=== PATIENT | female | born 1960 | race Caucasian/White ===

== ENCOUNTER 2022-03-03 17:53 | Emergency (ER) | payer OTHER, SELFPAY ==
[2022-03-03 18:01] VITALS: BP 126/69; PULSE 88; RESP 18; TEMP 36.6; O2SAT 97; BMI 24.0
== END 2022-03-03 22:32 | disposition left against medical advice (07) ==
PROVIDERS: Emergency Provider Emergency Medicine; PCP Nurse Practitioner Family
DX: S61.215A Laceration without foreign body of left ring finger without damage to nail, initial encounter (principal); X58.XXXA Exposure to other specified factors, initial encounter; Y93.9 Activity, unspecified; Y92.9 Unspecified place or not applicable; Y99.9 Unspecified external cause status
CPT/HCPCS: 99281

== ENCOUNTER 2022-04-13 16:58 | Emergency (ER) | payer OTHER, SELFPAY ==
--- NOTE | ~2022-04-13 | XR_ITS ---
EXAMINATION: XR CHEST CLINICAL INFORMATION: Chest pain and cough COMPARISON: Chest x-ray 05/27/2013, right shoulder radiographs 11/23/2015 TECHNIQUE: 2 views of the chest were obtained. FINDINGS: The lungs are clear. No airspace consolidation, pleural effusion, or pneumothorax. The cardiomediastinal silhouette is within normal limits. No acute osseous injury. Multilevel degenerative disc disease in the thoracic spine. Chronic right proximal humeral shaft fracture deformity again noted. XR/XR chest 2V IMPRESSION: No acute pulmonary process.
--- NOTE | 2022-04-13 17:01 | ECG_ITS ---
Test Reason : chest pain Blood Pressure : / mmHG Vent. Rate : 061 BPM Atrial Rate : 061 BPM P-R Int : 148 ms QRS Dur : 080 ms QT Int : 430 ms P-R-T Axes : 057 027 068 degrees QTc Int : 432 ms Normal sinus rhythm Normal ECG No previous ECGs available Referred By: Generic ED Physician Electronically Signed By:JENISE CABA MD
[2022-04-13 18:44] VITALS: BP 144/74; PULSE 69; RESP 16; TEMP 36.7; O2SAT 94; BMI 23.1
[2022-04-13 19:04] LABS: MANUAL DIFF FLAG NO
[2022-04-13 19:12] LABS: Basophils Absolute Auto 0.1 X10*3/uL (0.0-0.2); Basophils Percent Auto 0.6 % (0-2); Eosinophils Absolute Auto 0.2 X10*3/uL (0.0-0.4); Eosinophils Percent Auto 2.2 % (0-4); Hematocrit 35.2 % (37.0-47.0); Hemoglobin 11.7 g/dl (12.0-16.0); Imm Gran Abs Auto 0.04 X10*3/uL (0.00-0.03); Imm Gran Pct Auto 0.4 % (0.0-0.4); Lymphocytes Absolute Auto 3.9 X10*3/uL (1.2-4.9); Lymphocytes Percent Auto 35.5 % (20-40); Mean Corpuscular HGB Conc 33.2 g/dl (31.0-35.0); Mean Corpuscular Hemoglobin 32.9 pg (27.0-33.0); Mean Corpuscular Volume 98.9 fL (80.0-98.0); Mean Platelet Volume 9.3 fL (9.4-12.3); Monocytes Absolute Auto 0.8 X10*3/uL (0.1-1.2); Monocytes Percent Auto 7.2 % (2-11); Neutrophils Absolute Auto 5.9 x10*3/uL (2.0-8.3); Neutrophils Percent Auto 54.1 % (45-73); Platelet Count 363 X10*3/uL (160-400); Red Blood Count 3.56 X10*6/uL (4.20-5.50); Red Cell Distribution Width 12.6 % (11.0-16.0); White Blood Count 10.9 X10*3/uL (4.8-10.8)
[2022-04-13 19:17] LABS: COVID-19 Test Positive (Negative)
[2022-04-13 19:30] LABS: Alanine Aminotransferase 11 U/L (0-31); Albumin Level 4.1 g/dL (3.5-5.0); Alkaline Phosphatase 62 U/L (39-117); Anion Gap 14 (12-20); Aspartate Amino Transferase 19 U/L (5-31); Bilirubin Total 0.3 mg/dL (0.0-1.0); Blood Urea Nitrogen 13 mg/dL (9-16); Calcium 8.6 mg/dL (8.4-10.2); Carbon Dioxide 25 mmol/L (22-29); Chloride 103 mmol/L (96-108); Creatinine Clr Calc Pharmacy 82.3; Estimated Glomerular Filt Rate > 60; Glucose Random 75 mg/dL (60-115); Potassium 3.7 mmol/L (3.3-5.1); Sodium 138 mmol/L (135-145); Total Protein 6.5 g/dL (6.5-8.0)
[2022-04-13 19:35] LABS: Troponin-I High Sensitivity < 3.5 ng/L (<3.5-17.0)
[2022-04-13 21:32] VITALS: BP 166/91; PULSE 82; RESP 16; TEMP 36.1; O2SAT 98
--- NOTE | 2022-04-13 21:34 | ED_ITS ---
HPI - Chest Pain General Chief Complaint: Chest Pain Stated Complaint: chest pain Time Seen by Provider: 04/13/22 21:03 Source: patient Mode of arrival: ambulatory Limitations: no limitations History of Present Illness HPI narrative: 62-year-old female with history of hypertension, hyperlipidemia, thyroid nodules, smoking history presents with reports of left-sided chest discomfort since yesterday at 15:00. Patient tells me she was moving a patient and after moving the patient she sat down and felt some pain over her left side of her chest. Pain is worsened with arm movement, palpation and deep breathing. Pain is constant and is not worsened with exertion. Patient reports chronic cough. No shortness of breath, fevers, chills, leg swelling or leg pain. Patient tested positive for COVID 1 month ago. Related Data Previous Rx's Medication Instructions Recorded cyclobenzaprine 10 mg tablet 10 mg PO TID PRN muscle spasm #14 04/13/22 tabs Allergies Allergy/AdvReac Type Severity Reaction Status Date / Time No Known Allergies Allergy Verified 04/13/22 18:43 [No Known Allergies*] Wellbutrin Allergy Unknown insomnia Uncoded 01/03/18 00:00 Review of Systems Review of Systems: Yes all other systems are reviewed and are negative Constitutional: Constitutional: Reports no additional constitutional complaints, Denies body ache(s), Denies chills, Denies fever(s), Denies headache(s) and Denies weakness Eyes: Eyes: Reports no additional eye complaints and Denies change in vision ENT: Reports system reviewed and no additional complaints, except as documented, Denies dizziness, Denies headache(s), Denies nasal congestion, Denies nasal discharge and Denies neck pain Cardiovascular: Cardiovascular: Reports no additional cardiovascular complaints, Reports chest pain, Denies leg edema and Denies dyspnea Respiratory: Respiratory: Reports no additional respiratory complaints, Reports cough (Chronic) and Denies dyspnea Gastrointestinal: Gastrointestinal: Reports no additional gastrointestinal complaints, Denies abdominal pain, Denies diarrhea, Denies nausea and Denies vomiting Genitourinary: Genitourinary: Reports no additional female genitourinary complaints and Denies urinary incontinence Musculoskeletal: Musculoskeletal: Reports no additional musculoskeletal complaints, Denies back pain, Denies arthralgias, Denies joint swelling, Denies neck pain, Denies numbness and Denies tingling Integumentary/Breasts: Skin/Breast: Reports system reviewed and no additional complaints, except as docu and Denies rash Neurologic: Reports system reviewed and no additional complaints, except as documented, Denies Abnormal speech present, Denies dizziness, Denies headache(s), Denies numbness, Denies tingling and Denies weakness PMFSH Past Medical History Attestation statement: The following information was validated with the patient. Source: old records reviewed and nursing notes reviewed Social History Social History Advance Directives: No Physical Exam Vital Signs: Vital Signs: Last Vital Signs Temp 97.0 F 04/13/22 21:32 Pulse 82 04/13/22 21:32 Resp 16 04/13/22 21:32 BP 166/91 H 04/13/22 21:32 Pulse Ox 98 04/13/22 21:32 O2 Del Method 04/13/22 21:32 BMI result Body Mass Index 23.1 Const: General: cooperative, healthy appearing, comfortable and no acute distress Orientation/consciousness: patient oriented x3 Limitations: no limitations HEENT: Head: Yes normal to inspection Ears: hearing grossly normal bilaterally General nose exam: Normal external nose present Face and sinus: Yes normal facial exam Mouth: Normal oral and palatal mucosa present Throat: Yes posterior oropharynx normal Eyes: General: appearance normal, both eyes and all related structures Pupils: Equal, round and reactive pupils present Neck: Neck: Yes normal visual inspection Chest: Other: Tenderness over the left lateral chest which is worsened with palpation and movement of the left arm Chest palpation & inspection: normal inspection of the chest Resp: Effort & Inspection: normal respiratory effort Auscultation: clear to auscultation bilaterally Cardio: Rate: regular rate Rhythm: regular rhythm Peripheral pulses: Peripheral pulses 2+ throughout GI: Inspection: Yes normal to inspection Palpation (GI): Soft to palpation and nontender Auscultation: normal bowel sounds Back/Spine/Pelvis: Thoracic/Lumbar Spine: thoracic and lumbar spine normal to inspection Skin: General skin exam: no rashes or lesions noted Neuro: General: patient oriented x3, no focal motor deficits and normal sensa tion to monofilament Cranial nerves: Yes Equal, round and reactive pupils present Cognition (Neuro): normal cognition Speech: No Abnormal speech present Gait exam (Neuro): Normal gait present Motor exam (neuro): 02/03 motor strength present throughout Extrem: General: Yes normal to inspection, Yes no pedal edema and Yes no calf tenderness Course Course Course Narrative: Covid positive. Likely from infection one month ago and not re-infection. CXR, EKG, labs show no acute finding. Pain is MS on exam. Will recommend NSAID at home, prescribe low dose muscle relaxant. Reviewed worrisome signs/symptoms with patient and when to seek additional care. Comfortable with plan for discharge. MDM - Chest Pain MDM Narrative Medical decision making narrative: 62-year-old female here with left-sided chest pain which began after moving a patient yesterday. Pain is reproducible and worsened with deep breathing. No other associated symptoms. Tested + for COVID one month ago. WIll check EKG, CXR, labs Differential Diagnosis Differential diagnosis: Chest wall strain, acs (less likely with normal EKG/negative troponin and symptoms since yesterday), pe (less likely with negative d dimer, no clinical findings concerning for dvt, no hypoxia or tachypnea) Medical Records Data Attestation: I reviewed the patient's medical records. Lab Data Attestation: I reviewed the patient's lab results. Result diagrams: 04/13/22 18:47 04/13/22 18:47 Labs: Lab Results 04/13/22 04/13/22 04/13/22 Range/Units 18:47 18:47 18:47 WBC 10.9 H (4.8-10.8) X10*3/uL RBC 3.56 L (4.20-5.50) X10*6/uL Hgb 11.7 L (12.0-16.0) g/dl Hct 35.2 L (37.0-47.0) % MCV 98.9 H (80.0-98.0) fL MCH 32.9 (27.0-33.0) pg MCHC 33.2 (31.0-35.0) g/dl RDW 12.6 (11.0-16.0) % Plt Count 363 (160-400) X10*3/uL MPV 9.3 L (9.4-12.3) fL Immature Gran % (Auto) 0.4 (0.0-0.4) % Neut % (Auto) 54.1 (45-73) % Lymph % (Auto) 35.5 (20-40) % Christian % (Auto) 7.2 (2-11) % Eos % (Auto) 2.2 (0-4) % Baso % (Auto) 0.6 (0-2) % Lymph # (Auto) 3.9 (1.2-4.9) X10*3/uL Christian # (Auto) 0.8 (0.1-1.2) X10*3/uL Eos # (Auto) 0.2 (0.0-0.4) X10*3/uL Baso # (Auto) 0.1 (0.0-0.2) X10*3/uL Abs Immat Gran (auto) 0.04 H (0.00-0.03) X10*3/uL Absolute Neuts (auto) 5.9 (2.0-8.3) x10*3/uL Absolute Nucleated RBC 0.000 (0.0-0.012) X10*3/uL Nucleated RBC % (auto) 0.0 (0.0-0.2) /100WBC PT (10.0-13.1) SEC INR (0.9-1.1) D-Dimer High Sensitivty NG/ML Sodium 138 (135-145) mmol/L Potassium 3.7 (3.3-5.1) mmol/L Chloride 103 (96-108) mmol/L Carbon Dioxide 25 (22-29) mmol/L Anion Gap 14 (12-20) BUN 13 (9-16) mg/dL Creatinine 0.68 (0.5-1.4) mg/dL Estim Creat Clear Calc 82.3 Estimated GFR > 60 Random Glucose 75 (60-115) mg/dL Calcium 8.6 (8.4-10.2) mg/dL Total Bilirubin 0.3 (0.0-1.0) mg/dL AST 19 (5-31) U/L ALT 11 (0-31) U/L Alkaline Phosphatase 62 (39-117) U/L Troponin I High Sens < 3.5 (<3.5-17.0) ng/L Total Protein 6.5 (6.5-8.0) g/dL Albumin 4.1 (3.5-5.0) g/dL COVID-19 ([facility]) (Negative) COVID-19 Clin Com 04/13/22 04/13/22 Range/Units 18:47 21:40 WBC (4.8-10.8) X10*3/uL RBC (4.20-5.50) X10*6/uL Hgb (12.0-16.0) g/dl Hct (37.0-47.0) % MCV (80.0-98.0) fL MCH (27.0-33.0) pg MCHC (31.0-35.0) g/dl RDW (11.0-16.0) % Plt Count (160-400) X10*3/uL MPV (9.4-12.3) fL Immature Gran % (Auto) (0.0-0.4) % Neut % (Auto) (45-73) % Lymph % (Auto) (20-40) % Christian % (Auto) (2-11) % Eos % (Auto) (0-4) % Baso % (Auto) (0-2) % Lymph # (Auto) (1.2-4.9) X10*3/uL Christian # (Auto) (0.1-1.2) X10*3/uL Eos # (Auto) (0.0-0.4) X10*3/uL Baso # (Auto) (0.0-0.2) X10*3/uL Abs Immat Gran (auto) (0.00-0.03) X10*3/uL Absolute Neuts (auto) (2.0-8.3) x10*3/uL Absolute Nucleated RBC (0.0-0.012) X10*3/uL Nucleated RBC % (auto) (0.0-0.2) /100WBC PT 10.8 (10.0-13.1) SEC INR 0.9 (0.9-1.1) D-Dimer High Sensitivty < 150 NG/ML Sodium (135-145) mmol/L Potassium (3.3-5.1) mmol/L Chloride (96-108) mmol/L Carbon Dioxide (22-29) mmol/L Anion Gap (12-20) BUN (9-16) mg/dL Creatinine (0.5-1.4) mg/dL Estim Creat Clear Calc Estimated GFR Random Glucose (60-115) mg/dL Calcium (8.4-10.2) mg/dL Total Bilirubin (0.0-1.0) mg/dL AST (5-31) U/L ALT (0-31) U/L Alkaline Phosphatase (39-117) U/L Troponin I High Sens (<3.5-17.0) ng/L Total Protein (6.5-8.0) g/dL Albumin (3.5-5.0) g/dL COVID-19 ([facility]) Positive A (Negative) COVID-19 Clin Com See Note Imaging Data Chest x-ray: Attestation: I personally reviewed and interpreted this imaging study as follows: Radiologist's impression: XAMINATION: XR CHEST CLINICAL INFORMATION: Chest pain and cough COMPARISON: Chest x-ray 05/27/2013, right shoulder radiographs 11/23/2015 TECHNIQUE: 2 views of the chest were obtained. FINDINGS: The lungs are clear. No airspace consolidation, pleural effusion, or pneumothorax. The cardiomediastinal silhouette is within normal limits. No acute osseous injury. Multilevel degenerative disc disease in the thoracic spine. Chronic right proximal humeral shaft fracture deformity again noted. XR/XR chest 2V IMPRESSION: No acute pulmonary process. ECG Data ECG #1: Attestation: I personally reviewed and interpreted this ECG as follows: ECG interpretation date: 04/13/22 ECG interpretation time: 16:59 Interpretation: NSR with rate 61, normal pr, normal qrs, normal qt Discharge Plan Discharge Clinical Impression: Chest wall muscle strain Patient Disposition: Home, Self-Care Instructions: Muscle Strain (ED), Chest Wall Pain (ED) Additional Instructions: Chest x-ray, blood work and EKG are all re-assuring Take Motrin as needed Prescriptions: New cyclobenzaprine 10 mg tablet 10 mg PO TID PRN (Reason: muscle spasm) Qty: 14 0RF Referrals: Toshia Quinteros NP [Primary Care Provider] -
[2022-04-13 21:52] LABS: INTERNATIONAL NORM RATIO 0.9 (0.9-1.1); Prothrombin Time 10.8 SEC (10.0-13.1)
[2022-04-13 21:57] LABS: D Dimer High Sensitivity < 150 NG/ML
[2022-04-13] MEDS: Cyclobenzaprine HCl 10 MG TABLET PO (22:36)
== END 2022-04-13 22:39 | disposition home or self-care (01) ==
PROVIDERS: Nurse Practitioner Family; Emergency Provider Internal Medicine; PCP Nurse Practitioner Family
DX: S29.011A Strain of muscle and tendon of front wall of thorax, initial encounter (principal); X50.0XXA Overexertion from strenuous movement or load, initial encounter; U07.1 COVID-19; I10 Essential (primary) hypertension; E78.5 Hyperlipidemia, unspecified; Y93.F2 Activity, caregiving, lifting; Y92.9 Unspecified place or not applicable; Y99.0 Civilian activity done for income or pay
CPT/HCPCS: 36415; 71046; 80053; 84484; 85025; 85379; 85610; 87635; 93005; 99283; 99284

== ENCOUNTER 2022-09-01 08:42 | Emergency (ER) | payer OTHER, SELFPAY ==
--- NOTE | ~2022-09-01 | XR_ITS ---
EXAMINATION: XR HIP, LEFT CLINICAL INFORMATION: Left hip pain COMPARISON: 03/30/2015 TECHNIQUE: Single view pelvis with 2 additional views left hip of the left hip. FINDINGS: Bones and soft tissues are unremarkable. No fracture. Alignment is anatomic. Hip joint space is maintained. There is a probable partially visualize scoliosis present with some mild degenerative changes in the spine. XR/XR hip LT min 2V IMPRESSION: 1. Normal left hip. 2. Scoliosis and mild degenerative changes in the spine only partially imaged.
[2022-09-01 08:45] VITALS: BP 188/66; PULSE 66; RESP 16; TEMP 36.6; O2SAT 100; BMI 23.8
--- NOTE | 2022-09-01 10:00 | ED_ITS ---
HPI - Extremity Problem General Chief complaint: Extremity Problem Stated complaint: fall Time Seen by Provider: 09/01/22 09:59 Source: patient Mode of arrival: ambulatory Limitations: no limitations History of Present Illness HPI Narrative: Patient is who presents to the emergency department for evaluation of left hip pain. She reports 2 mechanical falls approximate brief 4 weeks ago while at work. She has continued to have pain to the left hip since the fall. She has been taking Tylenol and ibuprofen. The ibuprofen she reports did help with her pain but she has refrained from using it recently because it ?elevate her blood pressure?. She is able to ambulate with steady gait and reports no pain when walking. Her pain is mostly present when she is sitting or lying down. She has an appointment with her primary care doctor tomorrow for evaluation of this. She however, wanted to come today to make sure that there was nothing broken or dislocated. Denies any numbness or tingling or cold sensation to the extremity. Denies any past injury to this hip. Related Data Previous Rx's Medication Instructions Recorded cyclobenzaprine 10 mg tablet 10 mg PO TID PRN muscle spasm #14 04/13/22 tabs Allergies Allergy/AdvReac Type Severity Reaction Status Date / Time No Known Allergies Allergy Verified 04/13/22 18:43 [No Known Allergies*] Wellbutrin Allergy Unknown insomnia Uncoded 01/03/18 00:00 Review of Systems Review of Systems: Musculoskeletal: Positive left hip pain as noted in HPI Yes all other systems are reviewed and are negative PMFSH Past Medical History Attestation statement: The following information was validated with the patient. Source: old records reviewed Social History Social History Advance Directives: No Physical Exam Vital Signs: Vital Signs: Last Vital Signs Temp 98 F 09/01/22 08:45 Pulse 66 09/01/22 08:45 Resp 16 09/01/22 08:45 BP 188/66 H 09/01/22 08:45 Pulse Ox 100 09/01/22 08:45 O2 Del Method 09/01/22 08:45 BMI result Body Mass Index 23.8 Appearance: Alert.?Oriented to person, place and time. No acute distress.?Normal affect. Neck: Normal inspection.? Neck supple.?? CVS: Heart sounds normal. Normal heart rate and rhythm.? Pulses normal.?? Respiratory: No respiratory distress.? Lung sounds clear to auscultation bilaterally?? Abdomen: Soft and non-tender. Skin: Skin warm and dry.? Normal skin color.? Extremities: No lower extremity edema.? No calf ttp. 5/5 hip strength abduction/adduction, 2+ DP/PT pulse bilaterally, no obvious deformity, no rashes or lesions. ? Neuro: Moves all extremities spontaneously. Sensation intact bilaterally. Ambulates with normal steady gait. Course Course Course Narrative: Patient is a 62-year-old female with a past medical history of hypertension, diabetes, restless leg syndrome presenting to emergency department for evaluation of traumatic left hip pain. At the time of examination she is well- appearing, vital signs overall stable she is hypertensive, she states she has no t yet taken her antihypertensives today. Physical examination benign. Left lower extremities neurovascularly intact distally. XR of the left hip reveals no acute fracture or dislocation. There is incidental notation of scoliosis and mild degenerative changes in the spine. Reviewed these findings with patient. She states she would like to see pain management in regards to this, advised that she should speak with her primary care provider tomorrow at her appointment regarding potential referral. Advised to continue taking her medications as prescribed. Reviewed worrisome signs and symptoms to return back to emergency department for. All questions answered. She was discharged in stable condition, ambulatory with a steady gait. MDM - Extremity (Nontraumatic) Medical Records Attestation: I reviewed the patient's medical records. Imaging Data hip XR: Radiologist's impression: XR/XR hip LT min 2V IMPRESSION: 1.? Normal left hip. 2.? Scoliosis and mild degenerative changes in the spine only partially imaged. Discharge Plan Discharge Clinical Impression: Contusion of hip, left Patient Disposition: Home, Self-Care Instructions: Hip Contusion (ED) Additional Instructions: Please follow-up with your primary care provider as scheduled for tomorrow. Return to emergency department with any new or worsening symptoms or concerns. Prescriptions: No Action cyclobenzaprine 10 mg tablet 10 mg PO TID PRN (Reason: muscle spasm) Qty: 14 0RF Interventions: ED Discharge Assessment Last Done: 09/01/22 10:32 Discharge Date/Time: 09/01/22 10:32
--- OUTSIDE RECORDS SUMMARY | 2022-09-01 10:11 | XMS_ITS | Continuity of Care Document ---
:1960 Author Organization [facility] Address [address] [place] [address]- Care Team Providers Name Role Phone Neli MONSALVE, Toshia Dwyer Primary Care Physician Encounter [facility] Date(s): 07/08/21 - 09/09/21 [facility] [address] [place] [id number] Attending Physician: Toshia Quinteros NP Admitting Physician: Toshia Quinteros NP Referring Physician: Toshia Quinteros NP Allergies, Adverse Reactions, Alerts Substance Reaction Severity Status NKA Active Immunizations Given and Recorded Vaccine Date Status Refusal Reason SARS-CoV-2 (COVID-19) mRNA-1273 vaccine 03/17/21 Recorded SARS-CoV-2 (COVID-19) mRNA-1273 vaccine 02/14/21 Recorded influenza virus vaccine, inactivated 06/26/19 Given hepatitis B adult vaccine 12/13/18 Given hepatitis B adult vaccine 05/28/18 Given hepatitis B adult vaccine 03/22/18 Given hepatitis B adult vaccine 05/14/01 Recorded hepatitis B adult vaccine 12/13/00 Recorded pneumococcal 23-valent vaccine 05/28/18 Given tetanus/diphtheria/pertussis, acel(Tdap) 02/14/18 Given tetanus-diphtheria toxoids (Td) 02/13/03 Recorded Hepatitis A Adult Vaccine 10/01/00 Recorded Medications acyclovir 400 mg oral tablet 1 tablet, By Mouth, 2 times a day, # 60 tablet, 0 Refills, [id number], 161.5, cm, 07/05/21 16:07:00 EDT, Height, 69.4, kg, 03/16/21 16:00:00 EDT, Dry Weight Start Date: 08/16/21 Status: Orderedaspirin 81 mg oral delayed release tablet 81 mg, 1, tablet, By Mouth, Daily, # 90 tablet, Refills 1, Tot. Refills 1, Maintenance, 06/28/21 8:34:00 EDT, Route to Pharmacy Electronically, [id number], 161.5, cm, 06/28/21 8:31:00 EDT, Height, 69.4, kg, 03/16/21 16:00:00 EDT, Dry Weight Start Date: 06/28/21 Status: Orderedatorvastatin 10 mg oral tablet 1 tablet, By Mouth, Daily, # 30 tablet, 2 Refills, [id number], 161.5, cm, 03/16/21 16:00:00 EDT, Height, 69.4, kg, 03/16/21 16:00:00 EDT, Dry Weight Start Date: 06/15/21 Status: OrderedColace sodium 100 mg oral capsule 100 mg, 1, capsule, By Mouth, 2 times a day, PRN, # 60 capsule, Refills 3, Tot. Refills 3, Maintenance, for constipation, 09/07/21 8:53:00 EST, Route to Pharmacy Electronically, [id number], Partial fill upon patient request if the prescript... Start Date: 09/07/21 Status: Orderedduloxetine 30 mg oral enteric coated capsule 1 capsule = 30 mg, By Mouth, 2 times a day, # 180 capsule, 1 Refills, Maintenance, 06/28/21 8:34:00 EDT, EC Capsule, [id number], 161.5, cm, 06/28/21 8:31:00 EDT, Height, 69.4, kg, 03/16/21 16:00:00 EDT, Dry Weight Start Date: 06/28/21 Status: OrderedEstroven Estroven, 1 tab, By Mouth, 2 times a day, Refills 0, Maintenance, 02/14/18 13:25:10 EDT, Compound Start Date: 02/14/18 Status: OrderedFreestyle Lancets See Instructions, # 300 each, Refills 11, Tot. Refills 11, Maintenance, dx e11.9 for testing TID, 04/24/19 10:33:38 EDT, Compound Start Date: 04/24/19 Status: OrderedFreestyle Lite Monitor See Instructions, # 1 each, Maintenance, dx e11.9 for testing TID, 04/24/19 10:34:16 EDT, Compound Start Date: 04/24/19 Status: OrderedFreestyle Lite Test Strips See Instructions, # 300 each, Refills 11, Tot. Refills 11, Maintenance, dx e11.9 for testing TID, 04/24/19 10:33:57 EDT, Compound Start Date: 04/24/19 Status: Orderedgabapentin 600 mg oral tablet See Instructions, TAKE 1 TABLET BY MOUTH IN THE MORNING AND 2 IN THE EVENING, # 90 tablet, 2 Refills, Maintenance, 08/16/21 9:57:00 EST, [id number], 161.5, cm, 07/05/21 16:07:00 EDT, Height,69.4, kg, 03/16/21 16:00:00 EDT, Dry Weight Start Date: 08/16/21 Status: Orderedhydrochlorothiazide-lisinopril 25 mg-20 mg oral tablet 1 tablet, By Mouth, Daily, for 90 days, # 90 tablet, 1 Refills, Physician Stop 12/25/21 8:31:00 EDT,06/28/21 8:31:00 EDT, [id number], 1 tablet By Mouth Daily,x90 days, 161.5, cm, 06/28/21 8:31:00 EDT, Height, 69.4, kg, 03/16/21 16:00:00 ED... Start Date: 06/28/21 Stop Date: 12/25/21 Status: OrderedIbuprofen 400 mg, By Mouth, 2 times a day, Refills 0, Maintenance, 09/02/21 15:27:00 EST, Partial fill upon patient request if the prescription is for a schedule II opioid drug. Start Date: 09/02/21 Status: OrderedmetFORMIN 500 mg oral tablet 2 tablet = 1,000 mg, By Mouth, 2 times a day, for 90 days, office visit required for further refills, # 360 tablet, 1 Refills, Acute 12/25/21 8:31:00 EDT, 06/28/21 8:31:00 EDT, [id number], 161.5, cm, 06/28/21 8:31:00 EDT, Height, 69.4, kg,... Start Date: 06/28/21 Stop Date: 12/25/21 Status: OrderedMultivitamin 1 tab, By Mouth, Daily, 0 Refills, Maintenance, 02/14/18 13:25:36 EDT Start Date: 02/14/18 Status: OrderedoxyCODONE 5 mg oral tablet 5 mg, 1, tablet, By Mouth, Every 6 hours, PRN, # 28 tablet, Refills 0, Tot. Refills 0, Maintenance, as needed for pain, 09/07/21 8:53:00 EST, Route to Pharmacy Electronically, [id number], Partial fill upon patient request if the prescriptio... Start Date: 09/07/21 Status: Orderedpantoprazole 40 mg oral delayed release tablet 1 tablet, By Mouth, Daily, # 90 tablet, 1 Refills, Maintenance, 06/28/21 8:33:00 EDT, 161.5, cm, 06/28/21 8:31:00 EDT, Height, 69.4, kg, 03/16/21 16:00:00 EDT, Dry Weight Start Date: 06/28/21 Status: OrderedProAir HFA 90 mcg/inh inhalation aerosol with adapter 2, puffs, Inhalation, Every 4 hours, PRN, # 8.5 Gm, Refills 1, Tot. Refills 1, Maintenance, 07/01/2120:24:00 EDT, Aerosol, Route to Pharmacy Electronically, [id number], [id number], 161.5, cm, 06/28/21 8:31:00 EDT,... Start Date: 07/01/21 Status: OrderedValium 5 mg oral tablet 5 mg, 1, tablet, By Mouth, 3 times a day, PRN, # 40 tablet, Refills 0, Tot. Refills 0, Maintenance, Anal Spasm, 09/07/21 8:53:00 EST, Route to Pharmacy Electronically, [id number], Partial fill upon patient request if the prescription is for... 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) Vitamin D insufficiency(Confirmed) Active Cervical dysplasia(Confirmed) Active GERD (gastroesophageal reflux Active disease)(Confirmed) Herpes zoster(Confirmed) Active Hypertension(Confirmed) Active Insomnia(Confirmed) Active IBS (irritable bowel Active syndrome)(Confirmed) Menopausal vasomotor Active syndrome(Confirmed) Osteopenia(Confirmed) Active Thyroid nodule(Confirmed) Active DM (diabetes mellitus), type Active 2(Confirmed) Uterine fibroid(Confirmed) Active 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
--- OUTSIDE RECORDS SUMMARY | 2022-09-01 10:11 | XMS_ITS | Continuity of Care Document ---
:1960 Author Organization [facility] Address [address] [address]- Care Team Providers Name Role Phone Neli Toshia MONSALVE Primary Care Physician [facility]counter [facility] Date(s): 07/22/22 - 08/21/22 [facility] [address] [address] Attending Physician: AdmParesh cameron Admitting Physician: Admtr, Ar8 Referring Physician: Admtr, Ar8 Allergies, Adverse Reactions, Alerts No Known Allergies Immunizations Given and Recorded Vaccine Date Status Refusal Reason SARS-CoV-2 (COVID-19) mRNA-1273 vaccine 09/22/21 Recorded SARS-CoV-2 (COVID-19) mRNA-1273 vaccine 09/22/21 Recorded SARS-CoV-2 (COVID-19) mRNA-1273 vaccine 03/17/21 Recorded SARS-CoV-2 [...] Mouth, 2 times a day, # 180 tablet, 0 Refills, Maintenance, 08/10/22 18:28:00 [facility], 163, cm, 06/28/22 13:52:00 EDT, Height, 65.9, kg, 03/22/22 14:21:00 EDT, Dry Weight Start Date: 08/10/22 Status: Orderedaspirin 81 mg oral delayed release tablet 81 mg, 1, tablet, By Mouth, Daily, # 90 tablet, Refills 1, Tot. Refills 1, Maintenance, 01/13/22 7:05:00 EDT, Route to Pharmacy Electronically, [facility], 167.64, cm, 01/13/22 6:45:00 EDT, Height, 69.1, kg, 09/07/21 8:34:00 EST, Dry Weight Start Date: 01/13/22 Status: Orderedatorvastatin 10 mg oral tablet 1 tablet, By Mouth, Daily, # 30 tablet, 5 Refills, [facility], 167.64, cm, 01/18/22 15:04:00 EDT, Height, 69.1, kg, 09/07/21 8:34:00 EST, Dry Weight Start Date: 02/25/22 Status: OrderedChantix Starter Pack 0.5 mg-1 mg oral tablet 1 tablet, By Mouth, 2 times a day, as directed on package labeling, # 53 tablet, 0 Refills, Maintenance, 01/13/22 7:08:00 EDT, Tablet, [facility], 1 tablet By Mouth 2 times a day,Instr:as directed on package labeling, 167.64, cm, 01/13/22 6... Start Date: 01/13/22 Status: Orderedduloxetine 30 mg oral enteric coated capsule 1 capsule = 30 mg, By Mouth, 2 times a day, # 180 capsule, 1 Refills, Maintenance, 06/28/21 8:34:00 EDT, EC Capsule, [facility], 161.5, cm, 06/28/21 8:31:00 EDT, Height, 69.4, kg, 03/16/21 16:00:00 EDT, Dry Weight Start Date: 06/28/21 Status: OrderedEQ Aspirin Adult Low Dose 81 MG Oral Tablet Delayed Release EQ Aspirin Adult Low Dose 81 MG Oral Tablet Delayed Release, 1, tablet, By Mouth, Daily, # 90 tablet, 1 Refills, 167.64, cm, 09/10/21 7:14:00 EST, Height, 69.1, kg, 09/07/21 8:34:00 EST, Dry Weight Start Date: 11/20/21 Status: OrderedEstroven Estroven, 1 tab, By Mouth, [...] 2 IN THE EVENING, # 90 tablet, 0 Refills, [facility], 167.64, cm, 12/09/21 15:55:00 EST, Height, 69.1, kg, 09/07/21 8:34:00 EST, Dry Weight Start Date: 12/14/21 Status: Orderedhydrochlorothiazide-lisinopril 25 mg-20 mg oral tablet 1 tablet, By Mouth, 2 times a day, for 90 days, # 180 tablet, 1 Refills, Physician Stop 09/18/22 23:52:00 EST, 03/22/22 23:52:00 EDT, [facility], 1 tablet By Mouth 2 times a day,x90 days, 163.3, cm, 03/22/22 14:21:00 EDT, Height, 65.9, kg,... Start Date: 03/22/22 Stop Date: 09/18/22 Status: OrderedIbuprofen 400 mg, By Mouth, 2 times a day, Refills 0, Maintenance, 09/02/21 15:27:00 EST, Partial fill upon patient request if the prescription is for a schedule II opioid drug. Start Date: 09/02/21 Status: OrderedmetFORMIN 500 mg oral tablet See Instructions, TAKE 2 TABLETS BY MOUTH TWICE DAILY ( OFFICE VISIT REQUIRED FOR FURTHER REFILLS ),# 360 tablet, 0 Refills, [facility], 163.3, cm, 03/22/22 14:21:00 EDT, Height, 65.9, kg, 03/22/22 14:21:00 EDT, Dry Weight Start Date: 05/03/22 Status: OrderedMultivitamin 1 tab, By Mouth, Daily, 0 Refills, Maintenance, 02/14/18 13:25:36 EDT Start Date: 02/14/18 Status: Orderedpantoprazole 40 mg oral delayed release tablet 1 tablet, By Mouth, Daily, # 90 tablet, 1 Refills, 167.64, cm, 01/18/22 15:04:00 EDT, Height, 69.1, kg, 09/07/21 8:34:00 EST, Dry Weight Start Date: 03/05/22 Status: OrderedProAir HFA 90 mcg/inh inhalation aerosol with adapter 2, puffs, Inhalation, Every 4 hours, PRN, # 9 Gm, Refills 5, Route to Pharmacy Electronically, [id number], [facility], 167.64, cm, 09/10/21 7:14:00 EST, Height, 69.1, kg, 09/07/21 8:34:00 EST, Dry Weight Start Date: 11/20/21 Status: Ordered Problem List Condition Confirmation Course Effective Dates Status Health I nformant Status Apocrine cyst of Confirmed 08/01/19 Active breast- marker placed Dense breasts Confirmed Active 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 Carotid stenosis Confirmed Active Carpal tunnel Confirmed Active syndrome Bronchitis, chronic Confirmed Active Chronic low back pain Confirmed Active Cigarette smoker Confirmed Active Crohn's disease Confirmed Active Lumbar degenerative Confirmed Active disc disease DM type 2 with Confirmed Active diabetic peripheral neuropathy Vitamin D Confirmed Active insufficiency Cervical dysplasia Confirmed Active GERD Confirmed Active (gastroesophageal reflux disease) Genital HSV Confirmed Active Hypertension Confirmed Active Insomnia Confirmed Active IBS (irritable bowel Confirmed Active syndrome) Menopausal vasomotor Confirmed Active syndrome Osteopenia Confirmed Active Thyroid nodule Confirmed Active Uterine fibroid Confirmed Active 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) Social History Social History Type Response Smoking Status 10 or more cigarettes (1/2 p ack or more)/day in last 30 days; Type: Cigarettes; Other: 0.5 PPD previously smoked 1 PPD until age 43; Number of years: 47; Total pack years: 38; Started at age: 13; entered on: 04/30/20 Sex Patient Care team information Care Team PersonnelName: Toshia Quinteros NP Position: [facility] PCO Associate Professional Member Role: PCP Address: Address: [address] [place] [id number] Name: Kanwal Baird RN Position: [facility] AMB Nurse Member Role: Primary Care Nurse Care Team Related PersonsName: LETA CARRILLO Name: LORRAINE FISCHER Address: home [address] [place] [id number]
--- OUTSIDE RECORDS SUMMARY | 2022-09-01 10:11 | XMS_ITS | Continuity of Care Document ---
:1960 Author Organization [facility] Address [address] [place] [address]- Care Team Providers Name Role Phone Neli Toshia MONSALVE Primary Care Physician Encounter [facility] Date(s): 06/21/22 - 07/21/22 [facility] [address] [place] [address]- Allergies, Adverse Reactions, Alerts No Known Allergies [...] a day, # 60 tablet, 0 Refills, [facility], 167.64, cm, 01/18/22 15:04:00 EDT, Height, 69.1, kg, 09/07/21 8:34:00 EST, Dry Weight Start Date: 03/01/22 Status: Orderedaspirin 81 mg oral delayed release tablet 81 mg, 1, tablet, By Mouth, Daily, # 90 tablet, Refills 1, Tot. Refills 1, Maintenance, 01/13/22 7:05:00 EDT, Route to Pharmacy Electronically, [facility], 167.64, cm, 01/13/22 6:45:00 EDT, Height, 69.1, kg, 09/07/21 8:34:00 EST, Dry Weight Start Date: 01/13/22 Status: Orderedatorvastatin 10 mg oral tablet 1 tablet, By Mouth, Daily, # 30 tablet, 5 Refills, [facility], 167.64, cm, 01/18/22 15:04:00 EDT, Height, 69.1, kg, 09/07/21 8:34:00 EST, Dry Weight Start Date: 02/25/22 Status: OrderedChantix Starter Pack 0.5 mg-1 mg oral tablet 1 tablet, By Mouth, 2 times a day, as directed on package labeling, # 53 tablet, 0 Refills, Maintenance, 01/13/22 7:08:00 EDT, Tablet, [facility], 1 tablet By Mouth 2 times a day,Instr:as directed on package labeling, 167.64, cm, 01/13/22 6... Start Date: 01/13/22 Status: Orderedduloxetine 30 mg oral enteric coated capsule 1 capsule = 30 mg, By Mouth, 2 times a day, # 180 capsule, 1 Refills, Maintenance, 06/28/21 8:34:00 EDT, EC Capsule, [facility], 161.5, cm, 06/28/21 8:31:00 EDT, Height, [...] THE EVENING, # 90 tablet, 0 Refills, [facility], 167.64, cm, 12/09/21 15:55:00 EST, Height, 69.1, kg, 09/07/21 8:34:00 EST, Dry Weight Start Date: 12/14/21 Status: Orderedhydrochlorothiazide-lisinopril 25 mg-20 mg oral tablet 1 tablet, By Mouth, 2 times a day, for 90 days, # 180 tablet, 1 Refills, Physician Stop 09/18/22 23:52:00 EST, 03/22/22 23:52:00 EDT, [facility], 1 tablet By Mouth [...] FURTHER REFILLS ),# 360 tablet, 0 Refills, [facility], 163.3, cm, 03/22/22 14:21:00 [...] Gm, Refills 5, Route to Pharmacy Electronically, [id number], [facility], 167.64, cm, 09/10/21 7:14:00 [...] History Social History Type Response Smoking Status or more cigarettes (1/2 p ack or more)/day in last 30 days; Type: Cigarettes; Other: 0.5 PPD previously smoked 1 PPD until age 43; Number of years: 47; Total pack years: 38; Started at age: 13; entered on: 04/30/20 Sex Patient Care team information PersonnelName: Toshia Quinteros NP Address: Address: [address] [place] [id number]
--- OUTSIDE RECORDS SUMMARY | 2022-09-01 10:11 | XMS_ITS | Continuity of Care Document ---
:1960 Author Organization [facility] Address Unavailable , Care Team Providers Name Role Phone Toshia Quinteros NP Primary Care Physician Encounter [facility] [place] Date(s): 10/06/21 - 11/14/21 [facility] Attending Physician: Tracey Varghese NP Referring Physician: Toshia Quinteros NP Allergies, Adverse Reactions, Alerts No Known Allergies [...] 2 times a day, # 60 tablet, 1 Refills, [facility], 167.64, cm, 09/10/21 7:14:00 EST, Height, 69.1, kg, 09/07/21 8:34:00 EST, Dry Weight Start Date: 10/11/21 Status: Orderedaspirin 81 mg oral delayed release tablet 81 mg, 1, tablet, By Mouth, Daily, # 90 tablet, Refills 1, Tot. Refills 1, Maintenance, 06/28/21 8:34:00 EDT, Route to Pharmacy Electronically, [facility], 161.5, cm, 06/28/21 8:31:00 EDT, Height, 69.4, kg, 03/16/21 16:00:00 EDT, Dry Weight Start Date: 06/28/21 Status: Orderedatorvastatin 10 mg oral tablet 1 tablet, By Mouth, Daily, # 30 tablet, 5 Refills, [facility], 167.64, cm, 09/10/21 7:14:00 EST, Height, 69.1, kg, 09/07/21 8:34:00 EST, Dry Weight Start Date: 09/13/21 Status: OrderedColace sodium 100 mg oral capsule 100 mg, 1, capsule, By Mouth, 2 times a day, PRN, # 60 capsule, Refills 3, Tot. Refills 3, Maintenance, for constipation, 09/07/21 8:53:00 EST, Route to Pharmacy Electronically, [facility], Partial fill upon patient request if the prescript... Start Date: 09/07/21 Status: Orderedduloxetine 30 mg oral enteric coated capsule 1 capsule = 30 mg, By Mouth, 2 times a day, # 180 capsule, 1 Refills, Maintenance, 06/28/21 8:34:00 EDT, EC Capsule, [facility], 161.5, cm, 06/28/21 8:31:00 [...] THE EVENING, # 90 tablet, 0 Refills, [facility], 167.64, cm, 09/10/21 7:14:00 EST, Height, 69.1, kg, 09/07/21 8:34:00 EST, Dry Weight Start Date: 11/11/21 Status: Orderedhydrochlorothiazide-lisinopril 25 mg-20 mg oral tablet 1 tablet, By Mouth, Daily, # 30 tablet, 5 Refills, [facility], 30, Take 1 tablet by mouthonce daily, 167.64, cm, 09/10/21 7:14:00 EST, Height, 69.1, kg, 09/07/21 8:34:00 EST, Dry Weight Start Date: 11/11/21 Status: OrderedIbuprofen 400 mg, By Mouth, 2 [...] Acute 12/25/21 8:31:00 EDT, 06/28/21 8:31:00 EDT, [facility], 161.5, cm, 06/28/21 8:31:00 [...] 09/07/21 8:53:00 EST, Route to Pharmacy Electronically, [facility], Partial fill upon patient request if the prescriptio... Start Date: 09/07/21 Status: Orderedpantoprazole 40 mg oral delayed release tablet 1 tablet, By Mouth, Daily, # 90 tablet, 0 Refills, 167.64, cm, 09/10/21 7:14:00 EST, Height, 69.1, kg, 09/07/21 8:34:00 EST, Dry Weight Start Date: 11/11/21 Status: OrderedProAir HFA 90 mcg/inh inhalation aerosol with adapter 2, puffs, Inhalation, Every 4 hours, PRN, # 8.5 Gm, Refills 1, Tot. Refills 1, Maintenance, 07/01/2120:24:00 EDT, Aerosol, Route to Pharmacy Electronically, [id number], [facility], 161.5, cm, 06/28/21 8:31:00 EDT,... Start Date: 07/01/21 Status: OrderedValium 5 mg oral tablet 5 mg, 1, tablet, By Mouth, 3 times a day, PRN, # 40 tablet, Refills 0, Tot. Refills 0, Maintenance, Anal Spasm, 09/07/21 8:53:00 EST, Route to Pharmacy Electronically, [facility], Partial fill upon patient request [...]
--- OUTSIDE RECORDS SUMMARY | 2022-09-01 10:12 | XMS_ITS | Continuity of Care Document ---
:1960 Author Organization [facility] Address [address] [place] [address]- Care Team Providers Name Role Phone Neli Toshia MONSALVE Primary Care Physician [facility]counter [facility] Date(s): 06/22/22 - 07/22/22 [facility] [address] [place] [id number]- Allergies, Adverse Reactions, Alerts No Known Allergies [...] a day, # 60 tablet, 0 Refills, [facility]278, 167.64, cm, 01/18/22 15:04:00 EDT, Height, 69.1, kg, 09/07/21 8:34:00 EST, Dry Weight Start Date: 03/01/22 Status: Orderedaspirin 81 mg oral delayed release tablet 81 mg, 1, tablet, By Mouth, Daily, # 90 tablet, Refills 1, Tot. Refills 1, Maintenance, 01/13/22 7:05:00 EDT, Route to Pharmacy Electronically, [facility], 167.64, cm, 01/13/22 6:45:00 EDT, Height, 69.1, kg, 09/07/21 8:34:00 EST, Dry Weight Start Date: 01/13/22 Status: Orderedatorvastatin 10 mg oral tablet 1 tablet, By Mouth, Daily, # 30 tablet, 5 Refills, [facility]278, 167.64, cm, 01/18/22 15:04:00 EDT, Height, 69.1, kg, 09/07/21 8:34:00 EST, Dry Weight Start Date: 02/25/22 Status: OrderedChantix Starter Pack 0.5 mg-1 mg oral tablet 1 tablet, By Mouth, 2 times a day, as directed on package labeling, # 53 tablet, 0 Refills, Maintenance, 01/13/22 7:08:00 EDT, Tablet, [facility], 1 tablet By Mouth 2 times a day,Instr:as directed on package labeling, 167.64, cm, 01/13/22 6... Start Date: 01/13/22 Status: Orderedduloxetine 30 mg oral enteric coated capsule 1 capsule = 30 mg, By Mouth, 2 times a day, # 180 capsule, 1 Refills, Maintenance, 06/28/21 8:34:00 EDT, EC Capsule, [facility]278, 161.5, cm, 06/28/21 8:31:00 EDT, Height, [...] THE EVENING, # 90 tablet, 0 Refills, [facility]278, 167.64, cm, 12/09/21 15:55:00 EST, Height, 69.1, kg, 09/07/21 8:34:00 EST, Dry Weight Start Date: 12/14/21 Status: Orderedhydrochlorothiazide-lisinopril 25 mg-20 mg oral tablet 1 tablet, By Mouth, 2 times a day, for 90 days, # 180 tablet, 1 Refills, Physician Stop 09/18/22 23:52:00 EST, 03/22/22 23:52:00 EDT, [facility], 1 tablet By Mouth [...] FURTHER REFILLS ),# 360 tablet, 0 Refills, [facility], 163.3, cm, 03/22/22 14:21:00 [...] Gm, Refills 5, Route to Pharmacy Electronically, [id number], [facility], 167.64, cm, 09/10/21 7:14:00 [...] information PersonnelName: Toshia Quinteros NP Address: Address: [address] [place] [id number]
--- OUTSIDE RECORDS SUMMARY | 2022-09-01 10:12 | XMS_ITS | Continuity of Care Document ---
:1960 Author Organization [facility] [place] Address [address] [place] [address]- Care Team Providers Name Role Phone Neli Toshia MONSALVE Primary Care Physician En[place] [facility] [place](s): 03/22/22 - 04/21/22 [facility] [place] [address] [place] [address]- Allergies, Adverse Reactions, Alerts No Known Allergies [...] a day, # 60 tablet, 0 Refills, [facility]278, 167.64, cm, 01/18/22 15:04:00 EDT, Height, 69.1, kg, 09/07/21 8:34:00 EST, Dry Weight Start Date: 03/01/22 Status: Orderedaspirin 81 mg oral delayed release tablet 81 mg, 1, tablet, By Mouth, Daily, # 90 tablet, Refills 1, Tot. Refills 1, Maintenance, 01/13/22 7:05:00 EDT, Route to Pharmacy Electronically, [facility] 5278, 167.64, cm, 01/13/22 6:45:00 EDT, Height, 69.1, kg, 09/07/21 8:34:00 EST, Dry Weight Start Date: 01/13/22 Status: Orderedatorvastatin 10 mg oral tablet 1 tablet, By Mouth, Daily, # 30 tablet, 5 Refills, [facility] 5278, 167.64, cm, 01/18/22 15:04:00 EDT, Height, 69.1, kg, 09/07/21 8:34:00 EST, Dry Weight Start Date: 02/25/22 Status: OrderedChantix Starter Pack 0.5 mg-1 mg oral tablet 1 tablet, By Mouth, 2 times a day, as directed on package labeling, # 53 tablet, 0 Refills, Maintenance, 01/13/22 7:08:00 EDT, Tablet, [facility] 5278, 1 tablet By Mouth 2 times a day,Instr:as directed on package labeling, 167.64, cm, 01/13/22 6... Start Date: 01/13/22 Status: Orderedduloxetine 30 mg oral enteric coated capsule 1 capsule = 30 mg, By Mouth, 2 times a day, # 180 capsule, 1 Refills, Maintenance, 06/28/21 8:34:00 EDT, EC Capsule, [facility]278, 161.5, cm, 06/28/21 8:31:00 EDT, Height, [...] THE EVENING, # 90 tablet, 0 Refills, [facility], 167.64, cm, 12/09/21 15:55:00 EST, Height, 69.1, kg, 09/07/21 8:34:00 EST, Dry Weight Start Date: 12/14/21 Status: Orderedhydrochlorothiazide-lisinopril 25 mg-20 mg oral tablet 1 tablet, By Mouth, 2 times a day, for 90 days, # 180 tablet, 1 Refills, Physician Stop 09/18/22 23:52:00 EST, 03/22/22 23:52:00 EDT, [facility], 1 tablet By Mouth 2 times a day,x90 days, 163.3, cm, 03/22/22 14:21:00 EDT, Height, 65.9, kg,... Start Date: 03/22/22 Stop Date: 09/18/22 Status: OrderedIbuprofen 400 mg, By Mouth, 2 times a day, Refills 0, Maintenance, 09/02/21 15:27:00 EST, Partial fill upon patient request if the prescription is for a schedule II opioid drug. Start Date: 09/02/21 Status: OrderedMultivitamin 1 tab, By Mouth, Daily, [...] Gm, Refills 5, Route to Pharmacy Electronically, [id number], [facility], 167.64, cm, 09/10/21 7:14:00 EST, Height, 69.1, kg, 09/07/21 8:34:00 EST, Dry Weight Start Date: 11/20/21 Status: Ordered Problem List Condition Effective Dates [...] dysplasia(Confirmed) Active GERD (gastroesophageal reflux Active disease)(Confirmed) Genital HSV(Confirmed) Active Hypertension(Confirmed) Active Insomnia(Confirmed) Active IBS (irritable [...]
--- OUTSIDE RECORDS SUMMARY | 2022-09-01 10:12 | XMS_ITS | Continuity of Care Document ---
:1960 Author Organization [facility] Address Unavailable , Care Team Providers Name Role Phone Neli Toshia MONSALVE Primary Care Physician Encounter [facility] [place] Date(s): 10/15/21 - 11/14/21 [facility] Attending Physician: Paresh Hodges Admitting Physician: Paresh Hodges Referring Physician: Paresh Hodges Allergies, Adverse Reactions, Alerts No Known Allergies [...] a day, # 60 tablet, 1 Refills, [facility], 167.64, cm, 09/10/21 7:14:00 EST, Height, 69.1, kg, 09/07/21 8:34:00 EST, Dry Weight Start Date: 10/11/21 Status: Orderedaspirin 81 mg oral delayed release tablet 81 mg, 1, tablet, By Mouth, Daily, # 90 tablet, Refills 1, Tot. Refills 1, Maintenance, 06/28/21 8:34:00 EDT, Route to Pharmacy Electronically, [facility], 161.5, cm, 06/28/21 8:31:00 EDT, Height, 69.4, kg, 03/16/21 16:00:00 EDT, Dry Weight Start Date: 06/28/21 Status: Orderedatorvastatin 10 mg oral tablet 1 tablet, By Mouth, Daily, # 30 tablet, 5 Refills, [facility], 167.64, cm, 09/10/21 7:14:00 EST, Height, 69.1, kg, 09/07/21 8:34:00 EST, Dry Weight Start Date: 09/13/21 Status: OrderedColace sodium 100 mg oral capsule 100 mg, 1, capsule, By Mouth, 2 times a day, PRN, # 60 capsule, Refills 3, Tot. Refills 3, Maintenance, for constipation, 09/07/21 8:53:00 EST, Route to Pharmacy Electronically, [facility], Partial fill upon patient request if the prescript... Start Date: 09/07/21 Status: Orderedduloxetine 30 mg oral enteric coated capsule 1 capsule = 30 mg, By Mouth, 2 times a day, # 180 capsule, 1 Refills, Maintenance, 06/28/21 8:34:00 EDT, EC Capsule, [facility], 161.5, cm, 06/28/21 8:31:00 [...] THE EVENING, # 90 tablet, 0 Refills, [facility], 167.64, cm, 09/10/21 7:14:00 EST, Height, 69.1, kg, 09/07/21 8:34:00 EST, Dry Weight Start Date: 11/11/21 Status: Orderedhydrochlorothiazide-lisinopril 25 mg-20 mg oral tablet 1 tablet, By Mouth, Daily, # 30 tablet, 5 Refills, [facility], 30, Take 1 tablet [...] Acute 12/25/21 8:31:00 EDT, 06/28/21 8:31:00 EDT, [facility], 161.5, cm, 06/28/21 8:31:00 [...] 09/07/21 8:53:00 EST, Route to Pharmacy Electronically, [facility], Partial fill upon patient [...] 07/01/2120:24:00 EDT, Aerosol, Route to Pharmacy Electronically, [id number], [facility], 161.5, cm, 06/28/21 8:31:00 EDT,... Start Date: 07/01/21 Status: OrderedValium 5 mg oral tablet 5 mg, 1, tablet, By Mouth, 3 times a day, PRN, # 40 tablet, Refills 0, Tot. Refills 0, Maintenance, Anal Spasm, 09/07/21 8:53:00 EST, Route to Pharmacy Electronically, [facility], Partial fill upon patient [...]
--- OUTSIDE RECORDS SUMMARY | 2022-09-01 10:12 | XMS_ITS | Continuity of Care Document ---
:1960 Author Organization [facility] Address [address] [place] [address]- Care Team Providers Name Role Phone Toshia Quinteros NP Primary Care Physician Encounter [facility] [place] Date(s): 06/29/21 - 08/14/21 [facility] [address] [place] [id number] Attending Physician: Toshia Quinteros NP Admitting Physician: [...] Hepatitis A Adult Vaccine 10/01/00 Recorded Medications aspirin 81 mg oral delayed release tablet 81 mg, 1, tablet, By Mouth, Daily, # 90 tablet, Refills 1, Tot. Refills 1, Maintenance, 06/28/21 8:34:00 EDT, Route to Pharmacy Electronically, [facility], 161.5, cm, 06/28/21 8:31:00 EDT, Height, 69.4, kg, 03/16/21 16:00:00 EDT, Dry Weight Start Date: 06/28/21 Status: Orderedatorvastatin 10 mg oral tablet 1 tablet, By Mouth, Daily, # 30 tablet, 2 Refills, [facility], 161.5, cm, 03/16/21 16:00:00 EDT, Height, 69.4, kg, 03/16/21 16:00:00 EDT, Dry Weight Start Date: 06/15/21 Status: Orderedduloxetine 30 mg oral enteric coated capsule 1 capsule = 30 mg, By Mouth, 2 times a day, # 180 capsule, 1 Refills, Maintenance, 06/28/21 8:34:00 EDT, EC Capsule, [facility]278, 161.5, cm, 06/28/21 8:31:00 EDT, Height, 69.4, kg, 03/16/21 16:00:00 EDT, Dry Weight Start Date: 06/28/21 Status: OrderedEstroven Estroven, Refills 0, Maintenance, 02/14/18 13:25:10 EDT, Compound [...] IN THE MORNING AND 2 IN THE EVENING *APPOINTMENT NEEDED FORFURTHER REFILLS*, # 90 tablet, 0 Refills, [facility], 161.5, cm, 07/05/21 16:07:00 EDT, Height, 69.4, kg, 03/16/21 16:00:00 EDT, Dry Weight Start Date: 07/19/21 Status: Orderedhydrochlorothiazide-lisinopril 25 mg-20 mg oral tablet 1 tablet, By Mouth, Daily, for 90 days, # 90 tablet, 1 Refills, Physician Stop 12/25/21 8:31:00 EDT,06/28/21 8:31:00 EDT, [facility], 1 tablet By Mouth Daily,x90 days, 161.5, cm, 06/28/21 8:31:00 EDT, Height, 69.4, kg, 03/16/21 16:00:00 ED... Start Date: 06/28/21 Stop Date: 12/25/21 Status: OrderedmetFORMIN 500 mg oral tablet 2 tablet = 1,000 mg, By Mouth, 2 times a day, for 90 days, office visit required for further refills, # 360 tablet, 1 Refills, Acute 12/25/21 8:31:00 EDT, 06/28/21 8:31:00 EDT, [facility], 161.5, cm, 06/28/21 8:31:00 EDT, Height, 69.4, kg,... Start Date: 06/28/21 Stop Date: 12/25/21 Status: OrderedMultivitamin Daily, 0 Refills, Maintenance, 02/14/18 13:25:36 EDT [...] 07/01/2120:24:00 EDT, Aerosol, Route to Pharmacy Electronically, [id number], [facility], 161.5, cm, 06/28/21 8:31:00 EDT,... Start Date: 07/01/21 Status: Ordered Problem List Condition Effective Dates [...]
--- OUTSIDE RECORDS SUMMARY | 2022-09-01 10:12 | XMS_ITS | Continuity of Care Document ---
:1960 Author Organization [facility] Address [address] [place] [address]- Care Team Providers Name Role Phone Neli Toshia MONSALVE Primary Care Physician Encounter [facility] Date(s): 06/22/22 - 07/22/22 [facility] [address] [place] [address]- Attending Physician: Admtr, Ar8 Admitting Physician: Admtr, Ar8 Referring Physician: Admtr, [...] a day, # 60 tablet, 0 Refills, [facility], 167.64, cm, 01/18/22 15:04:00 EDT, Height, 69.1, kg, 09/07/21 8:34:00 EST, Dry Weight Start Date: 03/01/22 Status: Orderedaspirin 81 mg oral delayed release tablet 81 mg, 1, tablet, By Mouth, Daily, # 90 tablet, Refills 1, Tot. Refills 1, Maintenance, 01/13/22 7:05:00 EDT, Route to Pharmacy Electronically, [facility], 167.64, cm, 01/13/22 6:45:00 EDT, Height, 69.1, kg, 09/07/21 8:34:00 EST, Dry Weight Start Date: 01/13/22 Status: Orderedatorvastatin 10 mg oral tablet 1 tablet, By Mouth, Daily, # 30 tablet, 5 Refills, [facility], 167.64, cm, 01/18/22 15:04:00 EDT, Height, 69.1, kg, 09/07/21 8:34:00 EST, Dry Weight Start Date: 02/25/22 Status: OrderedChantix Starter Pack 0.5 mg-1 mg oral tablet 1 tablet, By Mouth, 2 times a day, as directed on package labeling, # 53 tablet, 0 Refills, Maintenance, 01/13/22 7:08:00 EDT, Tablet, [facility], 1 tablet By Mouth 2 times a day,Instr:as directed on package labeling, 167.64, cm, 01/13/22 6... Start Date: 01/13/22 Status: Orderedduloxetine 30 mg oral enteric coated capsule 1 capsule = 30 mg, By Mouth, 2 times a day, # 180 capsule, 1 Refills, Maintenance, 06/28/21 8:34:00 EDT, EC Capsule, [facility], 161.5, cm, 06/28/21 [...] THE EVENING, # 90 tablet, 0 Refills, [facility], 167.64, cm, 12/09/21 15:55:00 EST, Height, 69.1, kg, 09/07/21 8:34:00 EST, Dry Weight Start Date: 12/14/21 Status: Orderedhydrochlorothiazide-lisinopril 25 mg-20 mg oral tablet 1 tablet, By Mouth, 2 times a day, for 90 days, # 180 tablet, 1 Refills, Physician Stop 09/18/22 23:52:00 EST, 03/22/22 23:52:00 EDT, [facility], 1 tablet By Mouth 2 [...] FURTHER REFILLS ),# 360 tablet, 0 Refills, [facility], 163.3, cm, 03/22/22 14:21:00 EDT, [...] Gm, Refills 5, Route to Pharmacy Electronically, [id number], [facility], 167.64, cm, 09/10/21 7:14:00 EST, [...] 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
--- OUTSIDE RECORDS SUMMARY | 2022-09-01 10:12 | XMS_ITS | Continuity of Care Document ---
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, 167.64, cm, 01/18/22 15:04:00 EDT, Height, 69.1, kg, 09/07/21 8:34:00 EST, Dry Weight Start Date: 03/01/22 Status: Orderedaspirin 81 mg oral delayed release tablet 81 mg, 1, tablet, By Mouth, Daily, # 90 tablet, Refills 1, Tot. Refills 1, Maintenance, 01/13/22 7:05:00 EDT, Route to Pharmacy Electronically, [facility], 167.64, cm, 01/13/22 6:45:00 EDT, Height, 69.1, kg, 09/07/21 8:34:00 EST, Dry Weight Start Date: 01/13/22 Status: Orderedatorvastatin 10 mg oral tablet 1 tablet, By Mouth, Daily, # 30 tablet, 5 Refills, [facility]278, 167.64, cm, 01/18/22 15:04:00 EDT, Height, 69.1, kg, 09/07/21 8:34:00 EST, Dry Weight Start Date: 02/25/22 Status: OrderedChantix Starter Pack 0.5 mg-1 mg oral tablet 1 tablet, By Mouth, 2 times a day, as directed on package labeling, # 53 tablet, 0 Refills, Maintenance, 01/13/22 7:08:00 EDT, Tablet, [facility], 1 tablet By Mouth 2 times a day,Instr:as directed on package labeling, 167.64, cm, 01/13/22 6... Start Date: 01/13/22 Status: Orderedduloxetine 30 mg oral enteric coated capsule 1 capsule = 30 mg, By Mouth, 2 times a day, # 180 capsule, 1 Refills, Maintenance, 06/28/21 8:34:00 EDT, EC Capsule, [facility]278, 161.5, cm, 06/28/21 8:31:00 EDT, Height, [...] EVENING, # 90 tablet, 0 Refills, [facility], 167.64, cm, 12/09/21 15:55:00 EST, Height, 69.1, kg, 09/07/21 8:34:00 EST, Dry Weight Start Date: 12/14/21 Status: Orderedhydrochlorothiazide-lisinopril 25 mg-20 mg oral tablet 1 tablet, By Mouth, 2 times a day, for 90 days, # 180 tablet, 1 Refills, Physician Stop 09/18/22 23:52:00 EST, 03/22/22 23:52:00 EDT, [facility], 1 tablet By Mouth [...] Gm, Refills 5, Route to Pharmacy Electronically, [id number], [facility], 167.64, cm, 09/10/21 7:14:00 [...] JAGRUTI III (vulvar intraepithelial Active neoplasia III)(Confirmed) Diagnosis Diagnosis Type Effective Dates Health Clinical Infor mant Status Service AIN (anal Discharge 03/21/22 intraepithelial Diagnosis neoplasia) anal canal Vital Signs Most recent to oldest [Reference Range]: 1 Height 167.64 cm (03/21/22 9:51 AM) Weight 65.1 kg (03/21/22 9:51 AM) Pulse Rate [55-90 bpm] 87 bpm (03/21/22 9:51 AM) Body Mass Index [18.5-24.99] 23.16 (03/21/22 9:51 AM) Blood Pressure [90-138/55-84 mm Hg] 127/76 mm Hg (03/21/22 9:51 AM) Temperature [96.8-100.4 DegF] 97.5 DegF (03/21/22 9:51 AM) Social History Social History Type Response Smoking Status 10 or more cigarettes (1/2 p ack or more)/day in last 30 days; Type: Cigarettes; Other: 0.5 PPD previously smoked 1 PPD until age 43; Number of years: 47; Total pack years: 38; Started at age: 13; entered on: 04/30/20 Sex
--- OUTSIDE RECORDS SUMMARY | 2022-09-01 10:12 | XMS_ITS | Continuity of Care Document ---
:1960 Author Organization [facility] Address [address] [place] [address]- Care Team Providers Name Role Phone Neli MONSALVE, Toshia Dwyer Primary Care Physician Encounter [facility] [place] Date(s): 04/12/21 - 07/03/21 [facility] [address] [place] [address]- Attending Physician: Toshia Quinteros NP Referring Physician: Eliseo Vega MD Allergies, Adverse Reactions, Alerts Substance Reaction Severity [...] Medications acyclovir 400 mg oral tablet 1 tablet = 400 mg, By Mouth, 2 times a day, for 30 days, # 60 tablet, 0 Refills, Acute 07/28/21 8:14:00 EDT, 06/28/21 8:14:00 EDT, Tablet, [facility], 161.5, cm, 06/28/21 7:50:00 EDT, Height, 69.4, kg, 03/16/21 16:00:00 EDT, Dry Weight Start Date: 06/28/21 Stop Date: 07/28/21 Status: Orderedaspirin 81 mg oral delayed release tablet 81 mg, 1, tablet, By Mouth, Daily, # 90 tablet, Refills 1, Tot. Refills 1, Maintenance, 06/28/21 8:34:00 EDT, Route to Pharmacy Electronically, [facility], 161.5, cm, 06/28/21 8:31:00 EDT, Height, 69.4, kg, 03/16/21 16:00:00 EDT, Dry Weight Start Date: 06/28/21 Status: Orderedatorvastatin 10 mg oral tablet 1 tablet, By Mouth, Daily, # 30 tablet, 2 Refills, [facility], 161.5, cm, 03/16/21 16:00:00 EDT, Height, 69.4, kg, 03/16/21 16:00:00 EDT, Dry Weight Start Date: 06/15/21 Status: OrderedChantix Starter Pack 0.5 mg-1 mg oral tablet 1 tablet, By Mouth, 2 times a day, as directed on package labeling, # 53 tablet, 0 Refills, Acute 07/25/21 8:18:00 EDT, 06/28/21 8:18:00 EDT, Tablet, [facility], g., 1 tablet By Mouth 2 times a day,Instr:as directed on package labeling, 161... Start Date: 06/28/21 Stop Date: 07/25/21 Status: Orderedduloxetine 30 mg oral enteric coated capsule 1 capsule = 30 mg, By Mouth, 2 times a day, # 180 capsule, 1 Refills, Maintenance, 06/28/21 8:34:00 EDT, EC Capsule, [facility], 161.5, cm, 06/28/21 8:31:00 [...] IN THE MORNING AND 2 IN THE EVENING- office visit required for further refills, # 90 tablet, 0 Refills, 06/22/21 21:01:00 EDT, [facility], 161.5, cm,03/16/21 16:00:00 EDT, Height, 69.4, kg, 03/16/21... Start Date: 06/22/21 Status: Orderedhydrochlorothiazide-lisinopril 25 mg-20 mg oral tablet 1 tablet, By Mouth, Daily, for 90 days, # 90 tablet, 1 Refills, Physician Stop 12/25/21 8:31:00 EDT,06/28/21 8:31:00 EDT, [facility], 1 tablet By Mouth [...] Acute 12/25/21 8:31:00 EDT, 06/28/21 8:31:00 EDT, [facility], 161.5, cm, 06/28/21 8:31:00 [...] 07/01/2120:24:00 EDT, Aerosol, Route to Pharmacy Electronically, [id number], [facility], 161.5, cm, 06/28/21 8:31:00 [...]
--- OUTSIDE RECORDS SUMMARY | 2022-09-01 10:12 | XMS_ITS | Continuity of Care Document ---
:1960 Author Organization [facility] Address [address] [place] [address]- Care Team Providers Name Role Phone Toshia Quinteros NP Primary Care Physician Encounter [facility] [place] Date(s): 10/09/19 - 11/09/19 [facility] [address] [place] [id number]- [facility] Attending Physician: Michaela MONSALVE, Virginia Mack Admitting Physician: Michaela MONSALVE, Virginia Mack Referring Physician: Toshia Quinteros NP Allergies, Adverse Reactions, Alerts Substance Reaction Severity Status NKA Active Immunizations Given and Recorded Vaccine Date Status Refusal Reason influenza virus vaccine, inactivated 06/26/19 Given hepatitis B adult vaccine 12/13/18 Given hepatitis B adult vaccine 05/28/18 Given hepatitis B adult vaccine 03/22/18 Given pneumococcal 23-valent vaccine 05/28/18 Given tetanus/diphtheria/pertussis, acel(Tdap) 02/14/18 Given Medications acyclovir 800 mg oral tablet See Instructions, TAKE 1 TABLET BY MOUTH 5 TIMES DAILY FOR 7 DAYS NEEDED FOR RASH, # 35 tablet, 1Refills, Soft Stop, 10/11/19 10:59:00 EST, [facility], 163.5, cm, 09/09/19 8:32:00 EST, Height, 83.7, kg, 09/09/19 8:32:00 EST, Dry Weight Start Date: 10/11/19 Status: Orderedaspirin 81 mg oral tablet 1 tablet = 81 mg, By Mouth, Daily, # 90 tablet, 3 Refills, Maintenance, 10/28/19 10:27:00 EST, Tablet, [facility], 163.5, cm, 10/28/19 8:32:00 EST, Height, 83.7, kg, 09/09/19 8:32:00 EST, Dry Weight Start Date: 10/28/19 Status: Orderedatorvastatin 10 mg oral tablet 1 tablet = 10 mg, By Mouth, Daily, # 30 tablet, 5 Refills, Maintenance, 10/28/19 10:27:00 EST, [facility], 30 DAY NEEDED PER INS, 163.5, cm, 10/28/19 8:32:00 EST, Height, 83.7, kg, 09/09/19 8:32:00 EST, Dry Weight Start Date: 10/28/19 Status: OrderedChantix Continuing Month 1 mg oral tablet 1 tablet = 1 mg, By Mouth, Daily, for 12 week(s), # 84 tablet, 1 Refills, Acute 04/13/20 7:33:00 EDT, 10/28/19 7:33:00 EST, Tablet, [facility], 163.5, cm, 10/28/19 7:21:00 EST, Height, 83.7,kg, 09/09/19 8:32:00 EST, Dry Weight Start Date: 10/28/19 Stop Date: 04/13/20 Status: OrderedChantix Starter Pack 0.5 mg-1 mg oral tablet 1 tablet, By Mouth, 2 times a day, as directed on package labeling, # 53 tablet, 0 Refills, Maintenance, 10/28/19 7:33:00 EST, Tablet, [facility], 1 tablet By Mouth 2 times a day,Instr:as directed on package labeling, 163.5, cm, 10/28/19 7:... Start Date: 10/28/19 Status: Orderedduloxetine 30 mg oral enteric coated capsule 2 capsule = 60 mg, By Mouth, Daily, # 60 capsule, 0 Refills, Maintenance, 04/18/19 10:48:43 EDT, EC Capsule Start Date: 04/18/19 Status: OrderedEstroven Estroven, Refills 0, Maintenance, 02/14/18 [...] EDT, Compound Start Date: 04/24/19 Status: Orderedgabapentin 300 mg oral capsule 300 mg, 1, capsule, By Mouth, 4 times a day, # 90 capsule, Refills 1, Tot. Refills 1, Maintenance, 12/13/18 20:41:02 EDT, Route to Pharmacy Electronically, [facility] Start Date: 12/13/18 Status: Orderedhydrochlorothiazide-lisinopril 12.5 mg-10 mg oral tablet 1 tablet, By Mouth, Daily, # 90 tablet, 3 Refills, Maintenance, 10/28/19 10:27:00 EST, Tablet, [facility] 5278, 1 tablet By Mouth Daily, 163.5, cm, 10/28/19 8:32:00 EST, Height, 83.7, kg, 09/09/19 8:32:00 EST, Dry Weight Start Date: 10/28/19 Status: OrderedmetFORMIN 500 mg oral tablet, extended release 2 tablet = 1,000 mg, By Mouth, 2 times a day, # 360 tablet, 1 Refills, Maintenance, 06/11/20 9:05:00EDT, [place] [id number], 163.5, cm, 10/28/19 8:32:00 EST, Height, 83.7, kg, 09/09/19 8:32:00 EST,Dry Weight Start Date: 06/11/20 Stop Date: 12/08/20 Status: OrderedmetFORMIN 500 mg oral tablet, extended release 2 tablet = 1,000 mg, By Mouth, 2 times a day, for 90 days, # 360 tablet, 1 Refills, Hard Stop 06/11/20 9:05:09 EDT, 12/14/19 9:05:09 EDT, [facility] Start Date: 12/14/19 Stop Date: 06/11/20 Status: OrderedMultivitamin Daily, 0 Refills, Maintenance, 02/14/18 13:25:36 EDT Start Date: 02/14/18 Status: Orderedpantoprazole 40 mg oral delayed release tablet 1 tablet = 40 mg, By Mouth, Daily, # 90 tablet, 3 Refills, Maintenance, 03/20/19 11:40:39 EDT, EC Tablet Start Date: 03/20/19 Status: OrderedProAir HFA 90 mcg/inh inhalation aerosol with adapter 2, puffs, Inhalation, Every 4 hours, PRN, # 8.5 Gm, Refills 1, Tot. Refills 1, Maintenance, 10/28/2009:26:00 EST, Aerosol, Route to Pharmacy Electronically, [id number], [facility], 163.5, cm, 10/28/19 8:32:00 EST,... 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) Vitamin D insufficiency(Confirmed) Active GERD (gastroesophageal reflux Active disease)(Confirmed) Herpes zoster(Confirmed) Active Hypertension(Confirmed) Active Insomnia(Confirmed) Active IBS (irritable bowel Active syndrome)(Confirmed) Menopausal vasomotor Active syndrome(Confirmed) Obesity(Confirmed) Active Osteopenia(Confirmed) Active Thyroid nodule(Confirmed) Active DM (diabetes mellitus), type Active 2(Confirmed) Uterine fibroid(Confirmed) Active Vulvar intraepithelial neoplasia Active (JAGRUTI)(Confirmed) Social History Social History Type Response Smoking Status 10 or more cigarettes (1/2 p ack or more)/day in last 30 days; Type: Cigarettes; Other: 0.5 PPD or more; Number of years: 46; Total pack years: 23; Started at age: 13; entered on: 06/26/19 Sex
--- OUTSIDE RECORDS SUMMARY | 2022-09-01 10:12 | XMS_ITS | Continuity of Care Document ---
:1960 Author Organization [facility] Address [address] [place] [address]- Care Team Providers Name Role Phone Neli Toshia MONSALVE Primary Care Physician Encounter [facility] Date(s): 06/05/20 - 07/05/20 [facility] [address] [address]- [facility] Attending Physician: Paresh Hodges Admitting Physician: Paresh Hodges Referring Physician: AdmtrParesh Allergies, Adverse Reactions, Alerts Substance Reaction Severity Status NKA Active Immunizations Given and Recorded Vaccine Date Status Refusal Reason influenza virus vaccine, inactivated 06/26/19 Given hepatitis B adult vaccine 12/13/18 Given hepatitis B adult vaccine 05/28/18 Given hepatitis B adult vaccine 03/22/18 Given pneumococcal 23-valent vaccine 05/28/18 Given tetanus/diphtheria/pertussis, acel(Tdap) 02/14/18 Given Medications aspirin 81 mg oral tablet 1 tablet = 81 mg, By Mouth, Daily, # 90 tablet, 3 Refills, Maintenance, 10/28/19 10:27:00 EST, Tablet, [facility], 163.5, cm, 10/28/19 8:32:00 EST, Height, 83.7, kg, 09/09/19 8:32:00 EST, Dry Weight Start Date: 10/28/19 Status: Orderedatorvastatin 10 mg oral tablet 1 tablet = 10 mg, By Mouth, Daily, # 30 tablet, 5 Refills, Maintenance, 10/28/19 10:27:00 EST, [facility], 30 DAY NEEDED PER INS, 163.5, cm, 10/28/19 8:32:00 EST, Height, 83.7, kg, 09/09/19 8:32:00 EST, Dry Weight Start Date: 10/28/19 Status: Orderedduloxetine 30 mg [...] Orderedgabapentin 600 mg oral tablet See Instructions, 1 tab in Am, 2 tab at PM, # 90 tablet, 5 Refills, Maintenance, 04/30/20 7:39:00 EDT, [facility], 164.7, cm, 04/30/20 7:20:00 EDT, Height, 83, kg, 03/10/20 13:09:00 EDT, DryWeight Start Date: 04/30/20 Status: Orderedhydrochlorothiazide-lisinopril 12.5 mg-10 mg oral tablet 1 tablet, By Mouth, Daily, # 90 tablet, 3 Refills, Maintenance, 10/28/19 10:27:00 EST, Tablet, [facility], 1 tablet By Mouth Daily, 163.5, cm, 10/28/19 8:32:00 EST, Height, 83.7, kg, 09/09/19 8:32:00 EST, Dry Weight Start Date: 10/28/19 Status: OrderedmetFORMIN 500 mg oral tablet 2 tablet = 1,000 mg, By Mouth, 2 times a day, REPLACES 500MG ER 2 BID DUE TO RECALL, # 360 tablet, 1Refills, Maintenance, 03/24/20 14:03:00 EDT, [facility], 164.7, cm, 03/10/20 13:09:00 EDT, Height, 83, kg, 03/10/20 13:09:00 EDT, Dry Weight Start Date: 03/24/20 Status: OrderedMultivitamin Daily, 0 Refills, Maintenance, 02/14/18 13:25:36 EDT Start Date: 02/14/18 Status: Orderedpantoprazole 40 mg oral delayed release tablet 1 tablet = 40 mg, By Mouth, Daily, # 30 tablet, 5 Refills, Maintenance, 04/14/20 15:25:00 EDT, EC Tablet, 164.7, cm, 03/10/20 13:09:00 EDT, Height, 83, kg, 03/10/20 13:09:00 EDT, Dry Weight Start Date: 04/14/20 Status: OrderedProAir HFA 90 mcg/inh inhalation aerosol with adapter 2, puffs, Inhalation, Every 4 hours, PRN, # 8.5 Gm, Refills 1, Tot. Refills 1, Maintenance, 10/28/2009:26:00 EST, Aerosol, Route to Pharmacy Electronically, [id number], [facility], 163.5, cm, 10/28/19 8:32:00 EST,... Start Date: 10/28/19 Status: OrderedProbiotic Formula 1 capsule, By Mouth, Daily, 0 Refills, Maintenance, 02/14/18 13:20:17 EDT Start Date: 02/14/18 Status: Ordered Problem List Condition Effective Dates Status Health Status Informant Apocrine cyst of breast- marker 08/01/19 Active placed(Confirmed) Dense breasts(Confirmed) Active AIN (anal intraepithelial neoplasia) Active anal canal(Confirmed) Carotid stenosis(Confirmed) Active Bronchitis, chronic(Confirmed) Active Chronic [...] type Active 2(Confirmed) Uterine fibroid(Confirmed) Active JAGRUTI I (vulvar intraepithelial Active neoplasia I)(Confirmed) 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
--- OUTSIDE RECORDS SUMMARY | 2022-09-01 10:12 | XMS_ITS | Continuity of Care Document ---
:1960 Author Organization [facility] Address [address] [place] [address]- Care Team Providers Name Role Phone Neli Toshia MONSALVE Primary Care Physician [facility]counter [facility] Date(s): 08/24/20 - 09/23/20 [facility] [address] [place] [address]- Allergies, Adverse Reactions, Alerts Substance Reaction Severity [...] 3 Refills, Maintenance, 10/28/19 10:27:00 EST, Tablet, [facility], 163.5, cm, 10/28/19 8:32:00 EST, Height, 83.7, kg, 09/09/19 8:32:00 EST, Dry Weight Start Date: 10/28/19 Status: Orderedatorvastatin 10 mg oral tablet 1 tablet = 10 mg, By Mouth, Daily, # 30 tablet, 5 Refills, Maintenance, 10/28/19 10:27:00 EST, [facility], 30 DAY NEEDED PER INS, 163.5, cm, 10/28/19 8:32:00 EST, Height, 83.7, kg, 09/09/19 8:32:00 EST, Dry Weight Start Date: 10/28/19 Status: Orderedchantix 1mg tablet 1 tablet, By Mouth, Daily, for 12 week(s), # 84 tablet, 0 Refills, Acute 10/08/20 8:03:00 EST, 07/16/20 8:03:00 EDT, [facility], 164.7, cm, 04/30/20 7:20:00 EDT, Height, 83, kg, 03/10/20 13:09:00 EDT, Dry Weight Start Date: 07/16/20 Stop Date: 10/08/20 Status: Orderedduloxetine 30 mg oral enteric coated [...] tablet, 5 Refills, Maintenance, 04/30/20 7:39:00 EDT, [facility], 164.7, cm, 04/30/20 7:20:00 EDT, Height, 83, kg, 03/10/20 13:09:00 EDT, DryWeight Start Date: 04/30/20 Status: Orderedhydrochlorothiazide-lisinopril 12.5 mg-10 mg oral tablet 1 tablet, By Mouth, Daily, # 90 tablet, 3 Refills, Maintenance, 10/28/19 10:27:00 EST, Tablet, [facility], 1 tablet By Mouth Daily, 163.5, cm, 10/28/19 8:32:00 EST, Height, 83.7, kg, 09/09/19 8:32:00 EST, Dry Weight Start Date: 10/28/19 Status: OrderedmetFORMIN 500 mg oral tablet 2 tablet = 1,000 mg, By Mouth, 2 times a day, REPLACES 500MG ER 2 BID DUE TO RECALL, # 360 tablet, 1Refills, Maintenance, 03/24/20 14:03:00 EDT, [facility], 164.7, cm, 03/10/20 13:09:00 EDT, [...] 10/28/2009:26:00 EST, Aerosol, Route to Pharmacy Electronically, [id number], [facility], 163.5, cm, 10/28/19 8:32:00 EST,... [...]
--- OUTSIDE RECORDS SUMMARY | 2022-09-01 10:12 | XMS_ITS | Continuity of Care Document ---
:1960 Author Organization [facility] Address Unavailable , Care Team Providers Name Role Phone Neli Toshia MONSALVE Primary Care Physician Encounter [facility] Date(s): 09/08/21 - 10/08/21 [facility] Allergies, Adverse Reactions, Alerts Substance Reaction Severity Status NKA Active Immunizations Given and Recorded Vaccine Date Status Refusal Reason SARS-CoV-2 (COVID-19) mRNA-1273 vaccine 03/17/21 Recorded SARS-CoV-2 (COVID-19) mRNA-1277 vaccine 02/14/21 Recorded influenza virus vaccine, inactivated [...] a day, # 60 tablet, 0 Refills, [facility], 167.64, cm, 09/10/21 7:14:00 EST, Height, 69.1, kg, 09/07/21 8:34:00 EST, Dry Weight Start Date: 09/15/21 Status: Orderedaspirin 81 mg oral delayed release tablet 81 mg, 1, tablet, By Mouth, Daily, # 90 tablet, Refills 1, Tot. Refills 1, Maintenance, 06/28/21 8:34:00 EDT, Route to Pharmacy Electronically, [facility], 161.5, cm, 06/28/21 8:31:00 EDT, Height, 69.4, kg, 03/16/21 16:00:00 EDT, Dry Weight Start Date: 06/28/21 Status: Orderedatorvastatin 10 mg oral tablet 1 tablet, By Mouth, Daily, # 30 tablet, 5 Refills, [facility], 167.64, cm, 09/10/21 7:14:00 EST, Height, 69.1, kg, 09/07/21 8:34:00 EST, Dry Weight Start Date: 09/13/21 Status: OrderedColace sodium 100 mg oral capsule 100 mg, 1, capsule, By Mouth, 2 times a day, PRN, # 60 capsule, Refills 3, Tot. Refills 3, Maintenance, for constipation, 09/07/21 8:53:00 EST, Route to Pharmacy Electronically, [facility], Partial fill upon patient request if the prescript... Start Date: 09/07/21 Status: Orderedduloxetine 30 mg oral enteric coated capsule 1 capsule = 30 mg, By Mouth, 2 times a day, # 180 capsule, 1 Refills, Maintenance, 06/28/21 8:34:00 EDT, EC Capsule, [facility], 161.5, cm, 06/28/21 8:31:00 [...] tablet, 2 Refills, Maintenance, 08/16/21 9:57:00 EST, [facility], 161.5, cm, 07/05/21 16:07:00 EDT, Height,69.4, kg, 03/16/21 16:00:00 EDT, Dry Weight Start Date: 08/16/21 Status: Orderedhydrochlorothiazide-lisinopril 25 mg-20 mg oral tablet 1 tablet, By Mouth, Daily, for 90 days, # 90 tablet, 1 Refills, Physician Stop 12/25/21 8:31:00 EDT,06/28/21 8:31:00 EDT, [facility], 1 tablet By Mouth [...] Acute 12/25/21 8:31:00 EDT, 06/28/21 8:31:00 EDT, [facility], 161.5, cm, 06/28/21 8:31:00 [...] 09/07/21 8:53:00 EST, Route to Pharmacy Electronically, [facility], Partial fill upon patient [...] 07/01/2120:24:00 EDT, Aerosol, Route to Pharmacy Electronically, [id number], [facility], 161.5, cm, 06/28/21 8:31:00 EDT,... Start Date: 07/01/21 Status: OrderedValium 5 mg oral tablet 5 mg, 1, tablet, By Mouth, 3 times a day, PRN, # 40 tablet, Refills 0, Tot. Refills 0, Maintenance, Anal Spasm, 09/07/21 8:53:00 EST, Route to Pharmacy Electronically, [facility], Partial fill upon patient [...]
--- OUTSIDE RECORDS SUMMARY | 2022-09-01 10:12 | XMS_ITS | Continuity of Care Document ---
:1960 Author Organization [facility] Address [address] [place] [address]- Care Team Providers Name Role Phone Neli Toshia MONSALVE Primary Care Physician [facility]counter [facility] Date(s): 07/30/21 - 08/29/21 [facility] [address] [place] [id number]- Allergies, Adverse Reactions, Alerts Substance Reaction Severity [...] a day, # 60 tablet, 0 Refills, [facility], 161.5, cm, 07/05/21 16:07:00 EDT, Height, 69.4, kg, 03/16/21 16:00:00 EDT, Dry Weight Start Date: 08/16/21 Status: Orderedaspirin 81 mg oral delayed release tablet 81 mg, 1, tablet, By Mouth, Daily, # 90 tablet, Refills 1, Tot. Refills 1, Maintenance, 06/28/21 8:34:00 EDT, Route to Pharmacy Electronically, [facility], 161.5, cm, 06/28/21 8:31:00 EDT, Height, 69.4, kg, 03/16/21 16:00:00 EDT, Dry Weight Start Date: 06/28/21 Status: Orderedatorvastatin 10 mg oral tablet 1 tablet, By Mouth, Daily, # 30 tablet, 2 Refills, [facility], 161.5, cm, 03/16/21 16:00:00 EDT, Height, 69.4, kg, 03/16/21 16:00:00 EDT, Dry Weight Start Date: 06/15/21 Status: Orderedduloxetine 30 mg oral enteric coated capsule 1 capsule = 30 mg, By Mouth, 2 times a day, # 180 capsule, 1 Refills, Maintenance, 06/28/21 8:34:00 EDT, EC Capsule, [facility], 161.5, cm, 06/28/21 [...] tablet, 2 Refills, Maintenance, 08/16/21 9:57:00 EST, [facility], 161.5, cm, 07/05/21 16:07:00 EDT, Height,69.4, kg, 03/16/21 16:00:00 EDT, Dry Weight Start Date: 08/16/21 Status: Orderedhydrochlorothiazide-lisinopril 25 mg-20 mg oral tablet 1 tablet, By Mouth, Daily, for 90 days, # 90 tablet, 1 Refills, Physician Stop 12/25/21 8:31:00 EDT,06/28/21 8:31:00 EDT, [facility], 1 tablet By [...] Acute 12/25/21 8:31:00 EDT, 06/28/21 8:31:00 EDT, [facility], 161.5, cm, 06/28/21 [...] 07/01/2120:24:00 EDT, Aerosol, Route to Pharmacy Electronically, [id number], [facility], 161.5, cm, 06/28/21 8:31:00 EDT,... [...]
--- OUTSIDE RECORDS SUMMARY | 2022-09-01 10:12 | XMS_ITS | Continuity of Care Document ---
:1960 Author Organization [facility] Address [address] [place] [address]- Care Team Providers Name Role Phone Neli Toshia MONSALVE Primary Care Physician Encounter [facility] Date(s): 08/10/21 - 09/09/21 [facility] [address] [place] [id number] Attending Physician: Paresh Hodges Admitting Physician: AdmParesh cameron Referring Physician: AdmtrParesh Allergies, Adverse Reactions, Alerts [...] a day, # 60 tablet, 0 Refills, [facility], 161.5, cm, 07/05/21 16:07:00 EDT, Height, 69.4, kg, 03/16/21 16:00:00 EDT, Dry Weight Start Date: 08/16/21 Status: Orderedaspirin 81 mg oral delayed release tablet 81 mg, 1, tablet, By Mouth, Daily, # 90 tablet, Refills 1, Tot. Refills 1, Maintenance, 06/28/21 8:34:00 EDT, Route to Pharmacy Electronically, [facility], 161.5, cm, 06/28/21 8:31:00 EDT, Height, 69.4, kg, 03/16/21 16:00:00 EDT, Dry Weight Start Date: 06/28/21 Status: Orderedatorvastatin 10 mg oral tablet 1 tablet, By Mouth, Daily, # 30 tablet, 2 Refills, [facility], 161.5, cm, 03/16/21 16:00:00 EDT, Height, 69.4, kg, 03/16/21 16:00:00 EDT, Dry Weight Start Date: 06/15/21 Status: OrderedColace sodium 100 mg oral capsule 100 mg, 1, capsule, By Mouth, 2 times a day, PRN, # 60 capsule, Refills 3, Tot. Refills 3, Maintenance, for constipation, 09/07/21 8:53:00 EST, Route to Pharmacy Electronically, [facility], Partial fill upon patient request if the prescript... Start Date: 09/07/21 Status: Orderedduloxetine 30 mg oral enteric coated capsule 1 capsule = 30 mg, By Mouth, 2 times a day, # 180 capsule, 1 Refills, Maintenance, 06/28/21 8:34:00 EDT, EC Capsule, [facility], 161.5, cm, 06/28/21 8:31:00 EDT, [...] tablet, 2 Refills, Maintenance, 08/16/21 9:57:00 EST, [facility], 161.5, cm, 07/05/21 16:07:00 EDT, Height,69.4, kg, 03/16/21 16:00:00 EDT, Dry Weight Start Date: 08/16/21 Status: Orderedhydrochlorothiazide-lisinopril 25 mg-20 mg oral tablet 1 tablet, By Mouth, Daily, for 90 days, # 90 tablet, 1 Refills, Physician Stop 12/25/21 8:31:00 EDT,06/28/21 8:31:00 EDT, [facility], 1 tablet By Mouth Daily,x90 [...] Acute 12/25/21 8:31:00 EDT, 06/28/21 8:31:00 EDT, [facility], 161.5, cm, 06/28/21 8:31:00 EDT, [...] 09/07/21 8:53:00 EST, Route to Pharmacy Electronically, [facility], Partial fill upon patient request [...] 07/01/2120:24:00 EDT, Aerosol, Route to Pharmacy Electronically, [id number], [facility], 161.5, cm, 06/28/21 8:31:00 EDT,... Start Date: 07/01/21 Status: OrderedValium 5 mg oral tablet 5 mg, 1, tablet, By Mouth, 3 times a day, PRN, # 40 tablet, Refills 0, Tot. Refills 0, Maintenance, Anal Spasm, 09/07/21 8:53:00 EST, Route to Pharmacy Electronically, [facility], Partial fill upon patient request [...]
--- OUTSIDE RECORDS SUMMARY | 2022-09-01 10:12 | XMS_ITS | Continuity of Care Document ---
:1960 Author Organization [facility] Address [address] [place] [address]- Care Team Providers Name Role Phone Toshia Quinteros NP Primary Care Physician Encounter [facility] Date(s): 09/09/19 - 09/09/19 [facility] [address] [place] [id number] [facility] Discharge Disposition: A-D/C Home Attending Physician: Marleny Tate MD Admitting Physician: Marleny Tate MD Referring Physician: Toshia Quinteros NP Allergies, Adverse [...] acyclovir 800 mg oral tablet See Instructions, # 35 tablet, Refills 1 Tot. Refills 1, TAKE 1 TABLET BY MOUTH 5 TIMES DAILY FOR 7 DAYS NEEDED FOR RASH, [facility] Start Date: 06/17/19 Status: Orderedaspirin 81 mg oral tablet 1 tablet = 81 mg, By Mouth, Daily, # 90 tablet, 3 Refills, Maintenance, 12/13/18 20:40:00 EDT, Tablet Start Date: 12/13/18 Status: Orderedatorvastatin 10 mg oral tablet 1 tablet = 10 mg, By Mouth, Daily, # 30 tablet, 5 Refills, Maintenance, 05/23/19 15:19:59 EDT, 30 DAY NEEDED PER INS Start Date: 05/23/19 Status: Orderedduloxetine 30 mg oral enteric coated [...] capsule 300 mg, 1, capsule, By Mouth, Daily at bedtime, # 90 capsule, Refills 1, Tot. Refills 1, Maintenance, 12/13/18 20:41:02 EDT, Route to Pharmacy Electronically, [id number], [facility] Start Date: 12/13/18 Status: Orderedhydrochlorothiazide-lisinopril 12.5 mg-10 mg oral tablet 1 tablet, By Mouth, Daily, # 90 tablet, 3 Refills, Maintenance, 12/13/18 20:39:59 EDT, Tablet, 1 tablet By Mouth Daily Start Date: 12/13/18 Status: OrderedmetFORMIN 500 mg oral tablet, extended release 2 tablet = 1,000 mg, By Mouth, 2 times a day, # 360 tablet, 1 Refills, Maintenance, 12/14/19 9:05:09EDT Start Date: 12/14/19 Stop Date: 06/11/20 Status: OrderedmetFORMIN 500 mg oral tablet, extended release 1 tablet = 500 mg, By Mouth, 2 times a day, for 90 days, # 180 tablet, 1 Refills, Hard Stop 209:05:09 EDT, 06/17/19 9:05:09 EDT Start Date: 06/17/19 Stop Date: 12/14/19 Status: OrderedMultivitamin Daily, 0 Refills, Maintenance, 02/14/18 [...] Gm, Refills 1, Tot. Refills 1, Maintenance, 197:40:53 EDT, Aerosol, Route to Pharmacy Electronically, [id number], [facility] Start Date: 06/26/19 Status: OrderedProbiotic Formula 1 capsule, By Mouth, [...] fibroid(Confirmed) Active Vulvar intraepithelial neoplasia Active (JAGRUTI)(Confirmed) Vital Signs Most recent to oldest [Reference Range]: 1 Height 163.5 cm (09/09/19 8:32 AM) Weight 83.7 kg (09/09/19 8:32 AM) Oxygen Saturation [94-100 %] 99 % (09/09/19 8:32 AM) Pulse Rate [55-90 bpm] 86 bpm (09/09/19 8:32 AM) Body Mass Index [18.5-24.99] 31.31 *>HHI* (09/09/19 8:32 AM) Blood Pressure [90-138/55-84 mm Hg] 154/84 mm Hg *H* (09/09/19 8:32 AM) Respiratory Rate [16-30 br/min] 18 br/min (09/09/19 8:32 AM) Temperature [96.8-100.4 DegF] 97.5 DegF (09/09/19 8:32 AM) Blood pressure sites Arm, right (09/09/19 8:32 AM) Temperature Route Oral (09/09/19 8:32 AM) Dry Weight 83.7 kg (09/09/19 8:32 AM) Weight Obtained Via Standing scale (09/09/19 8:32 AM) Dry Weight Obtained Via Standing scale (09/09/19 8:32 AM) Social History Social History Type Response Smoking Status 10 or more cigarettes (1/2 p ack or more)/day in last 30 days; Type: Cigarettes; Other: 0.5 PPD or more; Number of years: 46; Total pack years: 23; Started at age: 13; entered on: 06/26/19 Sex
--- OUTSIDE RECORDS SUMMARY | 2022-09-01 10:12 | XMS_ITS | Continuity of Care Document ---
:1960 Author Organization [facility] Address [address] [place] [address]- Care Team Providers Name Role Phone Neli Toshia MONSALVE Primary Care Physician [facility]counter [facility] Date(s): 06/01/21 - 07/01/21 [facility] [address] [place] [id number]- Allergies, Adverse Reactions, Alerts Substance Reaction Severity [...] 07/28/21 8:14:00 EDT, 06/28/21 8:14:00 EDT, Tablet, [facility], 161.5, cm, 06/28/21 7:50:00 EDT, Height, 69.4, kg, 03/16/21 16:00:00 EDT, Dry Weight Start Date: 06/28/21 Stop Date: 07/28/21 Status: Orderedaspirin 81 mg oral delayed release tablet 81 mg, 1, tablet, By Mouth, Daily, # 90 tablet, Refills 1, Tot. Refills 1, Maintenance, 06/28/21 8:34:00 EDT, Route to Pharmacy Electronically, [facility], 161.5, cm, 06/28/21 8:31:00 EDT, Height, 69.4, kg, 03/16/21 16:00:00 EDT, Dry Weight Start Date: 06/28/21 Status: Orderedatorvastatin 10 mg oral tablet 1 tablet, By Mouth, Daily, # 30 tablet, 2 Refills, [facility], 161.5, cm, 03/16/21 16:00:00 EDT, Height, 69.4, kg, 03/16/21 16:00:00 EDT, Dry Weight Start Date: 06/15/21 Status: OrderedChantix Starter Pack 0.5 mg-1 mg oral tablet 1 tablet, By Mouth, 2 times a day, as directed on package labeling, # 53 tablet, 0 Refills, Acute 07/25/21 8:18:00 EDT, 06/28/21 8:18:00 EDT, Tablet, [facility], g., 1 tablet By Mouth 2 times a day,Instr:as directed on package labeling, 161... Start Date: 06/28/21 Stop Date: 07/25/21 Status: Orderedduloxetine 30 mg oral enteric coated capsule 1 capsule = 30 mg, By Mouth, 2 times a day, # 180 capsule, 1 Refills, Maintenance, 06/28/21 8:34:00 EDT, EC Capsule, [facility], 161.5, cm, 06/28/21 8:31:00 EDT, Height, [...] 90 tablet, 0 Refills, 06/22/21 21:01:00 EDT, [facility], 161.5, cm,03/16/21 16:00:00 EDT, Height, 69.4, kg, 03/16/21... Start Date: 06/22/21 Status: Orderedhydrochlorothiazide-lisinopril 25 mg-20 mg oral tablet 1 tablet, By Mouth, Daily, for 90 days, # 90 tablet, 1 Refills, Physician Stop 12/25/21 8:31:00 EDT,06/28/21 8:31:00 EDT, [facility], 1 tablet By Mouth Daily,x90 days, 161.5, cm, 06/28/21 8:31:00 EDT, Height, 69.4, kg, 03/16/21 16:00:00 ED... Start Date: 06/28/21 Stop Date: 12/25/21 Status: OrderedmetFORMIN 500 mg oral tablet 2 tablet = 1,000 mg, By Mouth, 2 times a day, for 90 days, office visit required for further refills, # 360 tablet, 1 Refills, Acute 12/25/21 8:31:00 EDT, 06/28/21 8:31:00 EDT, [facility], 161.5, cm, 06/28/21 8:31:00 EDT, [...] 07/01/2120:24:00 EDT, Aerosol, Route to Pharmacy Electronically, [id number], [facility], 161.5, cm, 06/28/21 8:31:00 EDT,... [...]
--- OUTSIDE RECORDS SUMMARY | 2022-09-01 10:12 | XMS_ITS | Continuity of Care Document ---
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) - 06/28/21 GERD (gastroesophageal reflux disease) (Discharge Diagnosis) - 06/28/21 Hypertension (Discharge Diagnosis) - 06/28/21 Osteopenia (Discharge Diagnosis) - 06/28/21 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) - 06/28/21 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) - 06/28/21 Crohn's disease (Discharge Diagnosis) - 06/28/21 Bronchitis, chronic (Discharge Diagnosis) - 06/28/21 Thyroid nodule (Discharge Diagnosis) - 06/28/21 Carpal tunnel syndrome (Discharge Diagnosis) - 06/28/21 Herpes zoster (Discharge Diagnosis) - 06/28/21 Attending Physician: Toshia Quinteros NP Allergies, Adverse Reactions, [...] 07/28/21 8:14:00 EDT, 06/28/21 8:14:00 EDT, Tablet, [facility], 161.5, cm, 06/28/21 7:50:00 EDT, Height, 69.4, kg, 03/16/21 16:00:00 EDT, Dry Weight Start Date: 06/28/21 Stop Date: 07/28/21 Status: Orderedaspirin 81 mg oral delayed release tablet 81 mg, 1, tablet, By Mouth, Daily, # 90 tablet, Refills 1, Tot. Refills 1, Maintenance, 06/28/21 8:34:00 EDT, Route to Pharmacy Electronically, [facility], 161.5, cm, 06/28/21 8:31:00 EDT, Height, 69.4, kg, 03/16/21 16:00:00 EDT, Dry Weight Start Date: 06/28/21 Status: Orderedatorvastatin 10 mg oral tablet 1 tablet, By Mouth, Daily, # 30 tablet, 2 Refills, [facility], 161.5, cm, 03/16/21 16:00:00 EDT, Height, 69.4, kg, 03/16/21 16:00:00 EDT, Dry Weight Start Date: 06/15/21 Status: OrderedChantix Starter Pack 0.5 mg-1 mg oral tablet 1 tablet, By Mouth, 2 times a day, as directed on package labeling, # 53 tablet, 0 Refills, Acute 07/25/21 8:18:00 EDT, 06/28/21 8:18:00 EDT, Tablet, [facility], g., 1 tablet By Mouth 2 times a day,Instr:as directed on package labeling, 161... Start Date: 06/28/21 Stop Date: 07/25/21 Status: Orderedduloxetine 30 mg oral enteric coated capsule 1 capsule = 30 mg, By Mouth, 2 times a day, # 180 capsule, 1 Refills, Maintenance, 06/28/21 8:34:00 EDT, EC Capsule, [facility], 161.5, cm, 06/28/21 8:31:00 EDT, [...] 90 tablet, 0 Refills, 06/22/21 21:01:00 EDT, [facility], 161.5, cm,03/16/21 16:00:00 EDT, Height, 69.4, kg, 03/16/21... Start Date: 06/22/21 Status: Orderedhydrochlorothiazide-lisinopril 25 mg-20 mg oral tablet 1 tablet, By Mouth, Daily, for 90 days, # 90 tablet, 1 Refills, Physician Stop 12/25/21 8:31:00 EDT,06/28/21 8:31:00 EDT, [facility], 1 tablet By Mouth Daily,x90 days, 161.5, cm, 06/28/21 8:31:00 EDT, Height, 69.4, kg, 03/16/21 16:00:00 ED... Start Date: 06/28/21 Stop Date: 12/25/21 Status: OrderedmetFORMIN 500 mg oral tablet 2 tablet = 1,000 mg, By Mouth, 2 times a day, for 90 days, office visit required for further refills, # 360 tablet, 1 Refills, Acute 12/25/21 8:31:00 EDT, 06/28/21 8:31:00 EDT, [facility], 161.5, cm, 06/28/21 8:31:00 EDT, [...] 07/01/2120:24:00 EDT, Aerosol, Route to Pharmacy Electronically, [id number], [facility], 161.5, cm, 06/28/21 8:31:00 EDT,... [...] Active neoplasia III)(Confirmed) Diagnosis Diagnosis Type Effective [facility] Clinical Infor mant Status Service Carotid stenosis Discharge 06/28/21 Diagnosis Cigarette smoker Discharge 06/28/21 Diagnosis DM (diabetes Discharge 06/28/21 mellitus), type 2 Diagnosis DM type 2 with Discharge 06/28/21 diabetic peripheral Diagnosis neuropathy GERD Discharge 06/28/21 (gastroesophageal Diagnosis reflux disease) Hypertension Discharge 06/28/21 Diagnosis Osteopenia Discharge 06/28/21 Diagnosis JAGRUTI III (vulvar Discharge 06/28/21 intraepithelial Diagnosis neoplasia III) AIN (anal Discharge 06/28/21 intraepithelial Diagnosis neoplasia) anal canal Bronchitis, chronic Discharge 06/28/21 Diagnosis Crohn's disease Discharge 06/28/21 Diagnosis Thyroid nodule Discharge 06/28/21 Diagnosis Carpal tunnel Discharge 06/28/21 syndrome Diagnosis Herpes zoster Discharge 06/28/21 Diagnosis Vital Signs Most recent to oldest [Reference Range]: 1 2 Height 161.5 cm 161.5 cm (06/28/21 8:31 AM) (06/28/21 7:50 AM) Weight 70.1 kg (06/28/21 7:50 AM) Oxygen Saturation [94-100 %] 98 % (06/28/21 7:50 AM) Pulse Rate [55-90 bpm] 68 bpm (06/28/21 7:50 AM) Body Mass Index [18.5-24.99] 26.88 *H* (06/28/21 7:50 AM) Blood Pressure [90-138/55-84 mm Hg] 148/84 mm Hg 146/ 76 mm Hg *H* *H* (06/28/21 8:31 AM) (06/28/21 7:50 AM) Respiratory Rate [16-30 br/min] 14 br/min *L* (06/28/21 7:50 AM) Temperature [96.8-100.4 DegF] 97.8 DegF (06/28/21 7:50 AM) Mode of Delivery (Oxygen) Room air (06/28/21 7:50 AM) Blood pressure sites Arm, left Arm, right (06/28/21 8:31 AM) (06/28/21 7:50 AM) Temperature Route Oral (06/28/21 7:50 AM) Weight Obtained Via Standing scale (06/28/21 7:50 AM) Social History Social History Type Response Smoking Status 10 or more cigarettes (1/2 p ack or more)/day in last 30 days; Type: Cigarettes; Other: 0.5 PPD previously smoked 1 PPD until age 43; Number of years: 47; Total pack years: 38; Started at age: 13; entered on: 04/30/20 Sex
--- OUTSIDE RECORDS SUMMARY | 2022-09-01 10:12 | XMS_ITS | Continuity of Care Document ---
:1960 Author Organization [facility] Address [address] [place] [address]- Care Team Providers Name Role Phone Toshia Quinteros NP Primary Care Physician Encounter [facility] Date(s): 06/29/21 - 08/01/21 [facility] [address] [place] [address]- Attending Physician: Toshia Quinteros NP Admitting Physician: [...] 06/28/21 8:34:00 EDT, Route to Pharmacy Electronically, [facility], 161.5, cm, 06/28/21 8:31:00 EDT, Height, 69.4, kg, 03/16/21 16:00:00 EDT, Dry Weight Start Date: 06/28/21 Status: Orderedatorvastatin 10 mg oral tablet 1 tablet, By Mouth, Daily, # 30 tablet, 2 Refills, [facility], 161.5, cm, 03/16/21 16:00:00 [...] FORFURTHER REFILLS*, # 90 tablet, 0 Refills, [facility], 161.5, cm, 07/05/21 16:07:00 EDT, Height, 69.4, kg, 03/16/21 16:00:00 EDT, Dry Weight Start Date: 07/19/21 Status: Orderedhydrochlorothiazide-lisinopril 25 mg-20 mg oral tablet 1 tablet, By Mouth, Daily, for 90 days, # 90 tablet, 1 Refills, Physician Stop 12/25/21 8:31:00 EDT,06/28/21 8:31:00 EDT, [facility], 1 tablet [...] Acute 12/25/21 8:31:00 EDT, 06/28/21 8:31:00 EDT, [facility], 161.5, cm, 06/28/21 [...] 07/01/2120:24:00 EDT, Aerosol, Route to Pharmacy Electronically, [id number], [facility], 161.5, cm, 06/28/21 [...]
--- OUTSIDE RECORDS SUMMARY | 2022-09-01 10:12 | XMS_ITS | Continuity of Care Document ---
:1960 Author Organization [facility] Address [address] [place] [address]- Care Team Providers Name Role Phone Neli Toshia MONSALVE Primary Care Physician Encounter [facility] Date(s): 06/29/21 - 07/29/21 [facility] [address] [place] [id number]- [place] Allergies, Adverse Reactions, Alerts Substance Reaction Severity [...] 06/28/21 8:34:00 EDT, Route to Pharmacy Electronically, [facility], 161.5, cm, 06/28/21 8:31:00 EDT, Height, 69.4, kg, 03/16/21 16:00:00 EDT, Dry Weight Start Date: 06/28/21 Status: Orderedatorvastatin 10 mg oral tablet 1 tablet, By Mouth, Daily, # 30 tablet, 2 Refills, [facility], 161.5, cm, 03/16/21 16:00:00 EDT, Height, 69.4, kg, 03/16/21 16:00:00 EDT, Dry Weight Start Date: 06/15/21 Status: Orderedduloxetine 30 mg oral enteric coated capsule 1 capsule = 30 mg, By Mouth, 2 times a day, # 180 capsule, 1 Refills, Maintenance, 06/28/21 8:34:00 EDT, EC Capsule, [facility], 161.5, cm, 06/28/21 8:31:00 [...] FORFURTHER REFILLS*, # 90 tablet, 0 Refills, [facility], 161.5, cm, 07/05/21 16:07:00 EDT, Height, 69.4, kg, 03/16/21 16:00:00 EDT, Dry Weight Start Date: 07/19/21 Status: Orderedhydrochlorothiazide-lisinopril 25 mg-20 mg oral tablet 1 tablet, By Mouth, Daily, for 90 days, # 90 tablet, 1 Refills, Physician Stop 12/25/21 8:31:00 EDT,06/28/21 8:31:00 EDT, [facility], 1 tablet By Mouth [...] Acute 12/25/21 8:31:00 EDT, 06/28/21 8:31:00 EDT, [facility], 161.5, cm, 06/28/21 8:31:00 [...] 07/01/2120:24:00 EDT, Aerosol, Route to Pharmacy Electronically, [id number], [facility], 161.5, cm, 06/28/21 8:31:00 [...]
--- OUTSIDE RECORDS SUMMARY | 2022-09-01 10:12 | XMS_ITS | Continuity of Care Document ---
:1960 Author Organization [facility] Address Unavailable , Care Team Providers Name Role Phone Toshia Quinteros NP Primary Care Physician Encounter [facility] Date(s): 12/23/21 - 12/30/21 [facility] Attending Physician: Tracey Varghese NP Referring [...] a day, # 60 tablet, 1 Refills, [facility], 167.64, cm, 09/10/21 7:14:00 EST, Height, 69.1, kg, 09/07/21 8:34:00 EST, Dry Weight Start Date: 10/11/21 Status: Orderedaspirin 81 mg oral delayed release tablet 81 mg, 1, tablet, By Mouth, Daily, # 90 tablet, Refills 1, Tot. Refills 1, Maintenance, 06/28/21 8:34:00 EDT, Route to Pharmacy Electronically, [facility], 161.5, cm, 06/28/21 8:31:00 EDT, Height, 69.4, kg, 03/16/21 16:00:00 EDT, Dry Weight Start Date: 06/28/21 Status: Orderedatorvastatin 10 mg oral tablet 1 tablet, By Mouth, Daily, # 30 tablet, 5 Refills, [facility], 167.64, cm, 09/10/21 7:14:00 EST, Height, 69.1, kg, 09/07/21 8:34:00 EST, Dry Weight Start Date: 09/13/21 Status: Orderedduloxetine 30 mg oral enteric coated capsule 1 capsule = 30 mg, By Mouth, 2 times a day, # 180 capsule, 1 Refills, Maintenance, 06/28/21 8:34:00 EDT, EC Capsule, [facility], 161.5, cm, 06/28/21 [...] THE EVENING, # 90 tablet, 0 Refills, [facility], 167.64, cm, 12/09/21 15:55:00 EST, Height, 69.1, kg, 09/07/21 8:34:00 EST, Dry Weight Start Date: 12/14/21 Status: Orderedhydrochlorothiazide-lisinopril 25 mg-20 mg oral tablet 1 tablet, By Mouth, Daily, # 30 tablet, 5 Refills, [facility], 30, Take 1 tablet by [...] Gm, Refills 5, Route to Pharmacy Electronically, [id number], [facility], 167.64, cm, 09/10/21 [...] JAGRUTI III (vulvar intraepithelial Active neoplasia III)(Confirmed) Vital Signs Most recent to oldest [Reference Range]: 1 Height 167.64 cm (12/23/21 11:16 AM) Weight 68.2 kg (12/23/21 11:16 AM) Pulse Rate [55-90 bpm] 110 bpm *H* (12/23/21 11:16 AM) Body Mass Index [18.5-24.99] 24.27 (12/23/21 11:16 AM) Blood Pressure [90-138/55-84 mm Hg] 154/98 mm Hg *H* (12/23/21 11:16 AM) Respiratory Rate [16-30 br/min] 16 br/min (12/23/21 11:16 AM) Temperature [96.8-100.4 DegF] 97.5 DegF (12/23/21 11:16 AM) Social History Social History Type Response Smoking Status 10 or more cigarettes (1/2 p ack or more)/day in last 30 days; Type: Cigarettes; Other: 0.5 PPD previously smoked 1 PPD until age 43; Number of years: 47; Total pack years: 38; Started at age: 13; entered on: 04/30/20 Sex
--- OUTSIDE RECORDS SUMMARY | 2022-09-01 10:13 | XMS_ITS | Continuity of Care Document ---
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) - 09/09/21 Crohn's disease (Discharge Diagnosis) - 09/09/21 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) - 09/09/21 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) - 09/09/21 Bronchitis, chronic (Discharge Diagnosis) - 09/09/21 Osteopenia (Discharge Diagnosis) - 09/09/21 Cigarette smoker (Discharge Diagnosis) - 09/09/21 GERD (gastroesophageal reflux disease) (Discharge Diagnosis) - 09/09/21 Attending Physician: Toshia uQinteros NP Allergies, Adverse Reactions, Alerts Substance Reaction [...] a day, # 60 tablet, 0 Refills, [facility], 167.64, cm, 09/10/21 7:14:00 EST, Height, 69.1, kg, 09/07/21 8:34:00 EST, Dry Weight Start Date: 09/15/21 Status: Orderedaspirin 81 mg oral delayed release tablet 81 mg, 1, tablet, By Mouth, Daily, # 90 tablet, Refills 1, Tot. Refills 1, Maintenance, 06/28/21 8:34:00 EDT, Route to Pharmacy Electronically, [facility], 161.5, cm, 06/28/21 8:31:00 EDT, Height, 69.4, kg, 03/16/21 16:00:00 EDT, Dry Weight Start Date: 06/28/21 Status: Orderedatorvastatin 10 mg oral tablet 1 tablet, By Mouth, Daily, # 30 tablet, 5 Refills, [facility], 167.64, cm, 09/10/21 7:14:00 EST, Height, 69.1, kg, 09/07/21 8:34:00 EST, Dry Weight Start Date: 09/13/21 Status: OrderedColace sodium 100 mg oral capsule 100 mg, 1, capsule, By Mouth, 2 times a day, PRN, # 60 capsule, Refills 3, Tot. Refills 3, Maintenance, for constipation, 09/07/21 8:53:00 EST, Route to Pharmacy Electronically, [facility], Partial fill upon patient request if the prescript... Start Date: 09/07/21 Status: Orderedduloxetine 30 mg oral enteric coated capsule 1 capsule = 30 mg, By Mouth, 2 times a day, # 180 capsule, 1 Refills, Maintenance, 06/28/21 8:34:00 EDT, EC Capsule, [facility], 161.5, cm, 06/28/21 8:31:00 [...] tablet, 2 Refills, Maintenance, 08/16/21 9:57:00 EST, [facility], 161.5, cm, 07/05/21 16:07:00 EDT, Height,69.4, kg, 03/16/21 16:00:00 EDT, Dry Weight Start Date: 08/16/21 Status: Orderedhydrochlorothiazide-lisinopril 25 mg-20 mg oral tablet 1 tablet, By Mouth, Daily, for 90 days, # 90 tablet, 1 Refills, Physician Stop 12/25/21 8:31:00 EDT,06/28/21 8:31:00 EDT, [facility], 1 tablet By Mouth [...] Acute 12/25/21 8:31:00 EDT, 06/28/21 8:31:00 EDT, [facility], 161.5, cm, 06/28/21 8:31:00 [...] 09/07/21 8:53:00 EST, Route to Pharmacy Electronically, [facility], Partial fill upon patient [...] 07/01/2120:24:00 EDT, Aerosol, Route to Pharmacy Electronically, [id number], [facility], 161.5, cm, 06/28/21 8:31:00 EDT,... Start Date: 07/01/21 Status: OrderedValium 5 mg oral tablet 5 mg, 1, tablet, By Mouth, 3 times a day, PRN, # 40 tablet, Refills 0, Tot. Refills 0, Maintenance, Anal Spasm, 09/07/21 8:53:00 EST, Route to Pharmacy Electronically, [facility], Partial fill upon patient [...] Dates Health Clinical Infor mant Status Service Annual physical exam Discharge 09/09/21 Diagnosis DM (diabetes Discharge 09/09/21 mellitus), type 2 Diagnosis DM type 2 with Discharge 09/09/21 diabetic peripheral Diagnosis neuropathy Crohn's disease Discharge 09/09/21 Diagnosis AIN (anal Discharge 09/09/21 intraepithelial Diagnosis neoplasia) anal canal Cigarette smoker Discharge 09/09/21 Diagnosis Bronchitis, chronic Discharge 09/09/21 Diagnosis Hypertension Discharge 09/09/21 Diagnosis GERD Discharge 09/09/21 (gastroesophageal Diagnosis reflux disease) Osteopenia Discharge 09/09/21 Diagnosis JAGRUTI III (vulvar Discharge 09/09/21 intraepithelial Diagnosis neoplasia III) Vital Signs Most recent to oldest [Reference Range]: 1 Height 167.64 cm (12/10/21 7:14 AM) Weight 72.1 kg (09/10/21 7:14 AM) Oxygen Saturation [94-100 %] 96 % (09/10/21 7:14 AM) Pulse Rate [55-90 bpm] 99 bpm *H* (09/10/21 7:14 AM) Body Mass Index [18.5-24.99] 25.66 *H* (09/10/21 7:14 AM) Blood Pressure [90-138/55-84 mm Hg] 118/64 mm Hg (09/10/21 7:14 AM) Respiratory Rate [16-30 br/min] 18 br/min (09/10/21 7:14 AM) Temperature [96.8-100.4 DegF] 98.4 DegF (09/10/21 7:14 AM) Mode of Delivery (Oxygen) Room air (09/10/21 7:14 AM) Blood pressure sites Arm, right (09/10/21 7:14 AM) Temperature Route Oral (09/10/21 7:14 AM) Weight Obtained Via Standing scale (09/10/21 7:14 AM) Social History Social History Type Response Smoking Status 10 or more cigarettes (1/2 p ack or more)/day in last 30 days; Type: Cigarettes; Other: 0.5 PPD previously smoked 1 PPD until age 43; Number of years: 47; Total pack years: 38; Started at age: 13; entered on: 04/30/20 Sex
--- OUTSIDE RECORDS SUMMARY | 2022-09-01 10:13 | XMS_ITS | Continuity of Care Document ---
:1960 Author Organization [facility] Address [address] [place] [address]- Care Team Providers Name Role Phone Toshia Quinteros NP Primary Care Physician Encounter [facility] Date(s): 06/22/22 - 06/29/22 [facility] [address] [place] [address]- Encounter Diagnosis Pre-syncope (Discharge Diagnosis) - 06/27/22 Carotid stenosis (Discharge Diagnosis) - 06/27/22 Cigarette smoker (Discharge Diagnosis) - 06/27/22 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) - 06/27/22 Hypertension (Discharge Diagnosis) - 06/27/22 Attending Physician: Toshia Quinteros NP Allergies, Adverse [...] a day, # 60 tablet, 0 Refills, [facility], 167.64, cm, 01/18/22 15:04:00 EDT, Height, 69.1, kg, 09/07/21 8:34:00 EST, Dry Weight Start Date: 03/01/22 Status: Orderedaspirin 81 mg oral delayed release tablet 81 mg, 1, tablet, By Mouth, Daily, # 90 tablet, Refills 1, Tot. Refills 1, Maintenance, 01/13/22 7:05:00 EDT, Route to Pharmacy Electronically, [facility], 167.64, cm, 01/13/22 6:45:00 EDT, Height, 69.1, kg, 09/07/21 8:34:00 EST, Dry Weight Start Date: 01/13/22 Status: Orderedatorvastatin 10 mg oral tablet 1 tablet, By Mouth, Daily, # 30 tablet, 5 Refills, [facility], 167.64, cm, 01/18/22 15:04:00 EDT, Height, 69.1, kg, 09/07/21 8:34:00 EST, Dry Weight Start Date: 02/25/22 Status: OrderedChantix Starter Pack 0.5 mg-1 mg oral tablet 1 tablet, By Mouth, 2 times a day, as directed on package labeling, # 53 tablet, 0 Refills, Maintenance, 01/13/22 7:08:00 EDT, Tablet, [facility], 1 tablet By Mouth 2 times a day,Instr:as directed on package labeling, 167.64, cm, 01/13/22 6... Start Date: 01/13/22 Status: Orderedduloxetine 30 mg oral enteric coated capsule 1 capsule = 30 mg, By Mouth, 2 times a day, # 180 capsule, 1 Refills, Maintenance, 06/28/21 8:34:00 EDT, EC Capsule, [facility], 161.5, cm, 06/28/21 8:31:00 [...] THE EVENING, # 90 tablet, 0 Refills, [facility], 167.64, cm, 12/09/21 15:55:00 EST, Height, 69.1, kg, 09/07/21 8:34:00 EST, Dry Weight Start Date: 12/14/21 Status: Orderedhydrochlorothiazide-lisinopril 25 mg-20 mg oral tablet 1 tablet, By Mouth, 2 times a day, for 90 days, # 180 tablet, 1 Refills, Physician Stop 09/18/22 23:52:00 EST, 03/22/22 23:52:00 EDT, [facility], 1 tablet By [...] FURTHER REFILLS ),# 360 tablet, 0 Refills, [facility], 163.3, cm, 03/22/22 14:21:00 [...] Gm, Refills 5, Route to Pharmacy Electronically, [id number], [facility], 167.64, cm, 09/10/21 [...] III (vulvar Confirmed Active intraepithelial neoplasia III) Diagnosis Diagnosis Type Effective Dates Health Clinical Infor mant Status Service Pre-syncope Discharge 06/27/22 Diagnosis Carotid stenosis Discharge 06/27/22 Diagnosis Cigarette smoker Discharge 06/27/22 Diagnosis DM type 2 with Discharge 06/27/22 diabetic peripheral Diagnosis neuropathy Hypertension Discharge 06/27/22 Diagnosis Vital Signs Most recent to oldest [Reference Range]: 1 2 Height 163 cm 163.3 cm (06/28/22 1:52 PM) (06/22/22 9:49 AM) Weight 66.9 kg 66.9 kg (06/28/22 1:52 PM) (06/22/22 9:49 AM) Oxygen Saturation [94-100 %] 99 % (06/22/22 9:49 AM) Body Mass Index [18.5-24.99 kg/m2] 25.09 kg/m2 *H* (06/22/22 9:49 AM) Blood Pressure [90-138/55-84 mm Hg] 126/78 mm Hg (06/22/22 9:49 AM) Weight Obtained Via Standing scale (06/22/22 9:49 AM) Social History Social History Type Response Smoking Status 10 or more cigarettes (1/2 p ack or more)/day in last 30 days; Type: Cigarettes; Other: 0.5 PPD previously smoked 1 PPD until age 43; Number of years: 47; Total pack years: 38; Started at age: 13; entered on: 04/30/20 Sex Patient Care team information PersonnelName: Toshia Quinteros NP Address: Address: [address] [place] [address]
--- OUTSIDE RECORDS SUMMARY | 2022-09-01 10:13 | XMS_ITS | Continuity of Care Document ---
:1960 Author Organization [facility] Address Unavailable , Care Team Providers Name Role Phone Neli Toshia MONSALVE Primary Care Physician Encounter [facility] Date(s): 09/08/21 - 10/08/21 [facility] Allergies, Adverse Reactions, Alerts Substance Reaction Severity Status NKA Active Immunizations Given and Recorded Vaccine Date Status Refusal Reason SARS-CoV-2 (COVID-19) mRNA-1273 vaccine 03/17/21 Recorded SARS-CoV-2 (COVID-19) mRNA-1271 vaccine 02/14/21 Recorded influenza virus vaccine, inactivated [...] a day, # 60 tablet, 0 Refills, [facility], 167.64, cm, 09/10/21 7:14:00 EST, Height, 69.1, kg, 09/07/21 8:34:00 EST, Dry Weight Start Date: 09/15/21 Status: Orderedaspirin 81 mg oral delayed release tablet 81 mg, 1, tablet, By Mouth, Daily, # 90 tablet, Refills 1, Tot. Refills 1, Maintenance, 06/28/21 8:34:00 EDT, Route to Pharmacy Electronically, [facility], 161.5, cm, 06/28/21 8:31:00 EDT, Height, 69.4, kg, 03/16/21 16:00:00 EDT, Dry Weight Start Date: 06/28/21 Status: Orderedatorvastatin 10 mg oral tablet 1 tablet, By Mouth, Daily, # 30 tablet, 5 Refills, [facility], 167.64, cm, 09/10/21 7:14:00 EST, Height, 69.1, kg, 09/07/21 8:34:00 EST, Dry Weight Start Date: 09/13/21 Status: OrderedColace sodium 100 mg oral capsule 100 mg, 1, capsule, By Mouth, 2 times a day, PRN, # 60 capsule, Refills 3, Tot. Refills 3, Maintenance, for constipation, 09/07/21 8:53:00 EST, Route to Pharmacy Electronically, [facility], Partial fill upon patient request if the prescript... Start Date: 09/07/21 Status: Orderedduloxetine 30 mg oral enteric coated capsule 1 capsule = 30 mg, By Mouth, 2 times a day, # 180 capsule, 1 Refills, Maintenance, 06/28/21 8:34:00 EDT, EC Capsule, [facility], 161.5, cm, 06/28/21 8:31:00 [...] tablet, 2 Refills, Maintenance, 08/16/21 9:57:00 EST, [facility], 161.5, cm, 07/05/21 16:07:00 EDT, Height,69.4, kg, 03/16/21 16:00:00 EDT, Dry Weight Start Date: 08/16/21 Status: Orderedhydrochlorothiazide-lisinopril 25 mg-20 mg oral tablet 1 tablet, By Mouth, Daily, for 90 days, # 90 tablet, 1 Refills, Physician Stop 12/25/21 8:31:00 EDT,06/28/21 8:31:00 EDT, [facility], 1 tablet By Mouth [...] Acute 12/25/21 8:31:00 EDT, 06/28/21 8:31:00 EDT, [facility], 161.5, cm, 06/28/21 8:31:00 [...] 09/07/21 8:53:00 EST, Route to Pharmacy Electronically, [facility], Partial fill upon patient [...] 07/01/2120:24:00 EDT, Aerosol, Route to Pharmacy Electronically, [id number], [facility], 161.5, cm, 06/28/21 8:31:00 EDT,... Start Date: 07/01/21 Status: OrderedValium 5 mg oral tablet 5 mg, 1, tablet, By Mouth, 3 times a day, PRN, # 40 tablet, Refills 0, Tot. Refills 0, Maintenance, Anal Spasm, 09/07/21 8:53:00 EST, Route to Pharmacy Electronically, [facility], Partial fill upon patient [...]
--- OUTSIDE RECORDS SUMMARY | 2022-09-01 10:13 | XMS_ITS | Continuity of Care Document ---
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) - 10/28/19 Hypertension (Discharge Diagnosis) - 10/28/19 GERD (gastroesophageal reflux disease) (Discharge Diagnosis) - 10/28/19 Obesity (Discharge Diagnosis) - 10/28/19 Osteopenia (Discharge Diagnosis) - 10/28/19 Vitamin D insufficiency (Discharge Diagnosis) - 10/28/19 Carotid stenosis (Discharge Diagnosis) - 10/28/19 Bronchitis, chronic (Discharge Diagnosis) - 10/28/19 Apocrine cyst of breast- marker placed (Discharge Diagnosis) - 10/28/19 Herpes zoster (Discharge Diagnosis) - 10/28/19 Lumbar degenerative disc disease (Discharge Diagnosis) - 10/28/19 Insomnia (Discharge Diagnosis) - 10/28/19 Attending Physician: Toshia Quinteros NP Referring Physician: [...] tablet, 1Refills, Soft Stop, 10/11/19 10:59:00 EST, [facility], 163.5, cm, 09/09/19 8:32:00 EST, Height, 83.7, kg, 09/09/19 8:32:00 EST, Dry Weight Start Date: 10/11/19 Status: Orderedaspirin 81 mg oral tablet 1 tablet = 81 mg, By Mouth, Daily, # 90 tablet, 3 Refills, Maintenance, 10/28/19 10:27:00 EST, Tablet, [facility] 5278, 163.5, cm, 10/28/19 8:32:00 EST, Height, 83.7, kg, 09/09/19 8:32:00 EST, Dry Weight Start Date: 10/28/19 Status: Orderedatorvastatin 10 mg oral tablet 1 tablet = 10 mg, By Mouth, Daily, # 30 tablet, 5 Refills, Maintenance, 10/28/19 10:27:00 EST, [facility] 5278, 30 DAY NEEDED PER INS, 163.5, cm, 10/28/19 8:32:00 EST, Height, 83.7, kg, 09/09/19 8:32:00 EST, Dry Weight Start Date: 10/28/19 Status: OrderedChantix Continuing Month 1 mg oral tablet 1 tablet = 1 mg, By Mouth, Daily, for 12 week(s), # 84 tablet, 1 Refills, Acute 04/13/20 7:33:00 EDT, 10/28/19 7:33:00 EST, Tablet, [facility] 5278, 163.5, cm, 10/28/19 7:21:00 EST, Height, 83.7,kg, 09/09/19 8:32:00 EST, Dry Weight Start Date: 10/28/19 Stop Date: 04/13/20 Status: OrderedChantix Starter Pack 0.5 mg-1 mg oral tablet 1 tablet, By Mouth, 2 times a day, as directed on package labeling, # 53 tablet, 0 Refills, Maintenance, 10/28/19 7:33:00 EST, Tablet, [facility], 1 tablet By Mouth 2 [...] 12/13/18 20:41:02 EDT, Route to Pharmacy Electronically, [facility] Start Date: 12/13/18 Status: Orderedhydrochlorothiazide-lisinopril 12.5 mg-10 mg oral tablet 1 tablet, By Mouth, Daily, # 90 tablet, 3 Refills, Maintenance, 10/28/19 10:27:00 EST, Tablet, [facility], 1 tablet By Mouth Daily, 163.5, cm, 10/28/19 8:32:00 EST, Height, 83.7, kg, 09/09/19 8:32:00 EST, Dry Weight Start Date: 10/28/19 Status: OrderedmetFORMIN 500 mg oral tablet, extended release 2 tablet = 1,000 mg, By Mouth, 2 times a day, # 360 tablet, 1 Refills, Maintenance, 06/11/20 9:05:00EDT, [facility], 163.5, cm, 10/28/19 8:32:00 EST, Height, 83.7, kg, 09/09/19 8:32:00 EST,Dry Weight Start Date: 06/11/20 Stop Date: 12/08/20 Status: OrderedmetFORMIN 500 mg oral tablet, extended release 2 tablet = 1,000 mg, By Mouth, 2 times a day, for 90 days, # 360 tablet, 1 Refills, Hard Stop 06/11/20 9:05:09 EDT, 12/14/19 9:05:09 EDT, [facility] Start Date: 12/14/19 Stop Date: [...] 10/28/2009:26:00 EST, Aerosol, Route to Pharmacy Electronically, [id number], [facility], 163.5, cm, 10/28/19 8:32:00 EST,... [...] fibroid(Confirmed) Active Vulvar intraepithelial neoplasia Active (JAGRUTI)(Confirmed) Diagnosis Diagnosis Type Effective Dates Health Clinical Infor mant Status Service Cigarette smoker Discharge 10/28/19 Diagnosis Crohn's disease Discharge 10/28/19 Diagnosis DM (diabetes Discharge 10/28/19 mellitus), type 2 Diagnosis DM type 2 with Discharge 10/28/19 diabetic peripheral Diagnosis neuropathy Hypertension Discharge 10/28/19 Diagnosis GERD Discharge 10/28/19 (gastroesophageal Diagnosis reflux disease) Obesity Discharge 10/28/19 Diagnosis Osteopenia Discharge 10/28/19 Diagnosis Vitamin D Discharge 10/28/19 insufficiency Diagnosis Carotid stenosis Discharge 10/28/19 Diagnosis Bronchitis, chronic Discharge 10/28/19 Diagnosis Apocrine cyst of Discharge 10/28/19 breast- marker Diagnosis placed Herpes zoster Discharge 10/28/19 Diagnosis Lumbar degenerative Discharge 10/28/19 disc disease Diagnosis Insomnia Discharge 10/28/19 Diagnosis Vital Signs Most recent to oldest [Reference Range]: 1 2 Height 163.5 cm 163.5 cm (10/28/19 7:42 AM) (10/28/19 7:21 AM) Weight 82.9 kg (10/28/19 7:21 AM) Oxygen Saturation [94-100 %] 98 % (10/28/19 7:21 AM) Pulse Rate [55-90 bpm] 96 bpm *H* (10/28/19 7:21 AM) Body Mass Index [18.5-24.99] 31.01 *>HHI* (10/28/19 7:21 AM) Blood Pressure [90-138/55-84 mm Hg] 138/80 mm Hg 140/ 78 mm Hg (10/28/19 7:42 AM) *H* (10/28/19 7:21 AM) Temperature [96.8-100.4 DegF] 97.8 DegF (10/28/19 7:21 AM) Blood pressure sites Arm, left Arm, right (10/28/19 7:42 AM) (10/28/19 7:21 AM) Temperature Route Oral (10/28/19 7:21 AM) Social History Social History Type Response Smoking Status 10 or more cigarettes (1/2 p ack or more)/day in last 30 days; Type: Cigarettes; Other: 0.5 PPD or more; Number of years: 46; Total pack years: 23; Started at age: 13; entered on: 06/26/19 Sex
--- OUTSIDE RECORDS SUMMARY | 2022-09-01 10:13 | XMS_ITS | Continuity of Care Document ---
:1960 Author Organization [facility] Address [address], [address] [place] [address]- Care Team Providers Name Role Phone Neli MONSALVE, Toshia Dwyer Primary Care Physician Encounter 08/06/21 - 08/13/21 [facility] [address], [address] [place] [address]- Attending Physician: Toshia Quinteros NP Admitting Physician: [...] 06/28/21 8:34:00 EDT, Route to Pharmacy Electronically, [facility], 161.5, cm, 06/28/21 8:31:00 EDT, Height, 69.4, kg, 03/16/21 16:00:00 EDT, Dry Weight Start Date: 06/28/21 Status: Orderedatorvastatin 10 mg oral tablet 1 tablet, By Mouth, Daily, # 30 tablet, 2 Refills, [facility], 161.5, cm, 03/16/21 16:00:00 EDT, Height, 69.4, kg, 03/16/21 16:00:00 EDT, Dry Weight Start Date: 06/15/21 Status: Orderedduloxetine 30 mg oral enteric coated capsule 1 capsule = 30 mg, By Mouth, 2 times a day, # 180 capsule, 1 Refills, Maintenance, 06/28/21 8:34:00 EDT, EC Capsule, [facility], 161.5, cm, 06/28/21 [...] FORFURTHER REFILLS*, # 90 tablet, 0 Refills, [facility], 161.5, cm, 07/05/21 16:07:00 EDT, Height, 69.4, kg, 03/16/21 16:00:00 EDT, Dry Weight Start Date: 07/19/21 Status: Orderedhydrochlorothiazide-lisinopril 25 mg-20 mg oral tablet 1 tablet, By Mouth, Daily, for 90 days, # 90 tablet, 1 Refills, Physician Stop 12/25/21 8:31:00 EDT,06/28/21 8:31:00 EDT, [facility], 1 tablet By Mouth [...] Acute 12/25/21 8:31:00 EDT, 06/28/21 8:31:00 EDT, [facility], 161.5, cm, 06/28/21 [...] 07/01/2120:24:00 EDT, Aerosol, Route to Pharmacy Electronically, [id number], [facility], 161.5, cm, 06/28/21 8:31:00 EDT,... [...]
--- OUTSIDE RECORDS SUMMARY | 2022-09-01 10:13 | XMS_ITS | Continuity of Care Document ---
:1960 Author Organization [facility] Adult Address [address] [place] [address]- Care Team Providers Name Role Phone Neli Toshia MONSALVE Primary Care Physician Encounter [facility] [place] Date(s): 06/28/21 - 07/28/21 [facility] [address] [place] [address]- Attending Physician: Admtr, Ar8 Admitting Physician: Admtr, Ar8 Referring Physician: Admtr, Ar8 Allergies, Adverse Reactions, Alerts Substance Reaction Severity [...] 06/28/21 8:34:00 EDT, Route to Pharmacy Electronically, [facility], 161.5, cm, 06/28/21 8:31:00 EDT, Height, 69.4, kg, 03/16/21 16:00:00 EDT, Dry Weight Start Date: 06/28/21 Status: Orderedatorvastatin 10 mg oral tablet 1 tablet, By Mouth, Daily, # 30 tablet, 2 Refills, [facility], 161.5, cm, 03/16/21 16:00:00 EDT, Height, 69.4, kg, 03/16/21 16:00:00 EDT, Dry Weight Start Date: 06/15/21 Status: Orderedduloxetine 30 mg oral enteric coated capsule 1 capsule = 30 mg, By Mouth, 2 times a day, # 180 capsule, 1 Refills, Maintenance, 06/28/21 8:34:00 EDT, EC Capsule, [facility], 161.5, cm, 06/28/21 8:31:00 [...] FORFURTHER REFILLS*, # 90 tablet, 0 Refills, [facility], 161.5, cm, 07/05/21 16:07:00 EDT, Height, 69.4, kg, 03/16/21 16:00:00 EDT, Dry Weight Start Date: 07/19/21 Status: Orderedhydrochlorothiazide-lisinopril 25 mg-20 mg oral tablet 1 tablet, By Mouth, Daily, for 90 days, # 90 tablet, 1 Refills, Physician Stop 12/25/21 8:31:00 EDT,06/28/21 8:31:00 EDT, [facility], 1 tablet By Mouth [...] Acute 12/25/21 8:31:00 EDT, 06/28/21 8:31:00 EDT, [facility], 161.5, cm, 06/28/21 8:31:00 [...] 07/01/2120:24:00 EDT, Aerosol, Route to Pharmacy Electronically, [id number], [facility], 161.5, cm, 06/28/21 8:31:00 [...]
--- OUTSIDE RECORDS SUMMARY | 2022-09-01 10:13 | XMS_ITS | Continuity of Care Document ---
:1960 Author Organization [facility] Address [address], [address] [place] [address]- Care Team Providers Name Role Phone Neli MONSALVE, Toshia Dwyer Primary Care Physician Encounter 07/23/21 - 07/30/21 [facility] [address], [address] [place] [address]- Attending Physician: Toshia Quinteros NP Admitting Physician: [...] 06/28/21 8:34:00 EDT, Route to Pharmacy Electronically, [facility], 161.5, cm, 06/28/21 8:31:00 EDT, Height, 69.4, kg, 03/16/21 16:00:00 EDT, Dry Weight Start Date: 06/28/21 Status: Orderedatorvastatin 10 mg oral tablet 1 tablet, By Mouth, Daily, # 30 tablet, 2 Refills, [facility], 161.5, cm, 03/16/21 16:00:00 EDT, Height, 69.4, kg, 03/16/21 16:00:00 EDT, Dry Weight Start Date: 06/15/21 Status: Orderedduloxetine 30 mg oral enteric coated capsule 1 capsule = 30 mg, By Mouth, 2 times a day, # 180 capsule, 1 Refills, Maintenance, 06/28/21 8:34:00 EDT, EC Capsule, [facility], 161.5, cm, 06/28/21 8:31:00 [...] FORFURTHER REFILLS*, # 90 tablet, 0 Refills, [facility], 161.5, cm, 07/05/21 16:07:00 EDT, Height, 69.4, kg, 03/16/21 16:00:00 EDT, Dry Weight Start Date: 07/19/21 Status: Orderedhydrochlorothiazide-lisinopril 25 mg-20 mg oral tablet 1 tablet, By Mouth, Daily, for 90 days, # 90 tablet, 1 Refills, Physician Stop 12/25/21 8:31:00 EDT,06/28/21 8:31:00 EDT, [facility], 1 tablet By Mouth [...] Acute 12/25/21 8:31:00 EDT, 06/28/21 8:31:00 EDT, [facility], 161.5, cm, 06/28/21 8:31:00 [...] 07/01/2120:24:00 EDT, Aerosol, Route to Pharmacy Electronically, [id number], [facility], 161.5, cm, 06/28/21 8:31:00 [...] JAGRUTI III (vulvar intraepithelial Active neoplasia III)(Confirmed) Procedures Procedure Date Related Diagnosis Body Site Status Carotid ultrasound - 50-69% stenosis 07/23/21 Completed left ICA. Given the ICA/CCA ratio remains less than 2.0, the stenosis is likely at the lower end of the range. normal right1 Ultrasound scan of thyroid- 2 nodules 07/23/21 Completed decreased in size2 1RIGHT SIDE: 1. 1-49% stenosis of the right ICA. 2. The vertebral artery has normal antegrade flow. 3. The subclavian artery has normal multiphasic flow. LEFT SIDE: 1. 50-69% stenosis left ICA. Given the ICA/CCA ratio remains less than 2.0, the stenosis is likely at the lower end of the range. 2. The vertebral artery has normal antegrade flow. 3. The subclavian artery has normal multiphasic flow.22.3 cm TR-4 right gland upper pole nodule, which meets criteria for recommendation of FNA, but due to continued decrease since 2018, further management per endocrinology. 1.2 cm medial right mid gland TR-4 nodule with continued decrease from 2018. 1.3 cm lateral right mid gland TR-4 nodule, unchanged from 2018. Recommend ultrasound follow-up in 2 years. Social History Social History Type Response Smoking Status 10 or more cigarettes (1/2 p ack or more)/day in last 30 days; Type: Cigarettes; Other: 0.5 PPD previously smoked 1 PPD until age 43; Number of years: 47; Total pack years: 38; Started at age: 13; entered on: 04/30/20 Sex
--- OUTSIDE RECORDS SUMMARY | 2022-09-01 10:13 | XMS_ITS | Continuity of Care Document ---
:1960 Author Organization [facility] Address [address] [place] [address]- Care Team Providers Name Role Phone Neli Toshia MONSALVE Primary Care Physician Encounter [facility] [place] Date(s): 09/09/19 - 09/19/19 [facility] [address] [place] [address] Attending Physician: Paresh Hodges Admitting Physician: AdmParesh [...] DAILY FOR 7 DAYS NEEDED FOR RASH, [facility] Start Date: 06/17/19 Status: Orderedaspirin 81 mg [...] 12/13/18 20:41:02 EDT, Route to Pharmacy Electronically, [id number], [facility] Start Date: 12/13/18 [...] 197:40:53 EDT, Aerosol, Route to Pharmacy Electronically, [id number], [facility] Start Date: 06/26/19 [...]
--- OUTSIDE RECORDS SUMMARY | 2022-09-01 10:13 | XMS_ITS | Continuity of Care Document ---
:1960 Author Organization [facility] Adult Address [address] [place] [address]- Care Team Providers Name Role Phone Neli Toshia MONSALVE Primary Care Physician Encounter [facility] Date(s): 06/18/21 - 07/18/21 [facility] [address] [place] [address]- Allergies, Adverse Reactions, Alerts Substance Reaction Severity [...] 07/28/21 8:14:00 EDT, 06/28/21 8:14:00 EDT, Tablet, [facility], 161.5, cm, 06/28/21 7:50:00 EDT, Height, 69.4, kg, 03/16/21 16:00:00 EDT, Dry Weight Start Date: 06/28/21 Stop Date: 07/28/21 Status: Orderedaspirin 81 mg oral delayed release tablet 81 mg, 1, tablet, By Mouth, Daily, # 90 tablet, Refills 1, Tot. Refills 1, Maintenance, 06/28/21 8:34:00 EDT, Route to Pharmacy Electronically, [facility]278, 161.5, cm, 06/28/21 8:31:00 EDT, Height, 69.4, kg, 03/16/21 16:00:00 EDT, Dry Weight Start Date: 06/28/21 Status: Orderedatorvastatin 10 mg oral tablet 1 tablet, By Mouth, Daily, # 30 tablet, 2 Refills, [facility] 5278, 161.5, cm, 03/16/21 16:00:00 EDT, Height, 69.4, kg, 03/16/21 16:00:00 EDT, Dry Weight Start Date: 06/15/21 Status: OrderedChantix Starter Pack 0.5 mg-1 mg oral tablet 1 tablet, By Mouth, 2 times a day, as directed on package labeling, # 53 tablet, 0 Refills, Acute 07/25/21 8:18:00 EDT, 06/28/21 8:18:00 EDT, Tablet, [facility] 5278, g., 1 tablet By Mouth 2 times a day,Instr:as directed on package labeling, 161... Start Date: 06/28/21 Stop Date: 07/25/21 Status: Orderedduloxetine 30 mg oral enteric coated capsule 1 capsule = 30 mg, By Mouth, 2 times a day, # 180 capsule, 1 Refills, Maintenance, 06/28/21 8:34:00 EDT, EC Capsule, [facility]278, 161.5, cm, 06/28/21 8:31:00 EDT, Height, [...] 90 tablet, 0 Refills, 06/22/21 21:01:00 EDT, [facility], 161.5, cm,03/16/21 16:00:00 EDT, Height, 69.4, kg, 03/16/21... Start Date: 06/22/21 Status: Orderedhydrochlorothiazide-lisinopril 25 mg-20 mg oral tablet 1 tablet, By Mouth, Daily, for 90 days, # 90 tablet, 1 Refills, Physician Stop 12/25/21 8:31:00 EDT,06/28/21 8:31:00 EDT, [facility], 1 tablet By [...] Acute 12/25/21 8:31:00 EDT, 06/28/21 8:31:00 EDT, [facility], 161.5, cm, 06/28/21 [...] 07/01/2120:24:00 EDT, Aerosol, Route to Pharmacy Electronically, [id number], [facility], 161.5, cm, 06/28/21 [...]
--- OUTSIDE RECORDS SUMMARY | 2022-09-01 10:13 | XMS_ITS | Continuity of Care Document ---
:1960 Author Organization [facility] Address [address] [place] [address]- Care Team Providers Name Role Phone Neli Toshia MONSALVE Primary Care Physician Encounter [facility] [place] Date(s): 12/09/21 - 01/08/22 [facility] [address] [place] [address]- Attending Physician: Paresh Hodges Admitting Physician: Paresh [...] a day, # 60 tablet, 0 Refills, [facility], 167.64, cm, 12/23/21 11:16:00 EDT, Height, 69.1, kg, 09/07/21 8:34:00 EST, Dry Weight Start Date: 01/07/22 Status: Orderedaspirin 81 mg oral delayed release tablet 81 mg, 1, tablet, By Mouth, Daily, # 90 tablet, Refills 1, Tot. Refills 1, Maintenance, 06/28/21 8:34:00 EDT, Route to Pharmacy Electronically, [facility], 161.5, cm, 06/28/21 8:31:00 EDT, Height, 69.4, kg, 03/16/21 16:00:00 EDT, Dry Weight Start Date: 06/28/21 Status: Orderedatorvastatin 10 mg oral tablet 1 tablet, By Mouth, Daily, # 30 tablet, 5 Refills, [facility], 167.64, cm, 09/10/21 7:14:00 EST, Height, 69.1, kg, 09/07/21 8:34:00 EST, Dry Weight Start Date: 09/13/21 Status: Orderedduloxetine 30 mg oral enteric coated capsule 1 capsule = 30 mg, By Mouth, 2 times a day, # 180 capsule, 1 Refills, Maintenance, 06/28/21 8:34:00 EDT, EC Capsule, [facility], 161.5, cm, 06/28/21 8:31:00 EDT, [...] THE EVENING, # 90 tablet, 0 Refills, [facility], 167.64, cm, 12/09/21 15:55:00 EST, Height, 69.1, kg, 09/07/21 8:34:00 EST, Dry Weight Start Date: 12/14/21 Status: Orderedhydrochlorothiazide-lisinopril 25 mg-20 mg oral tablet 1 tablet, By Mouth, Daily, # 30 tablet, 5 Refills, [facility], 30, Take 1 tablet by [...] Gm, Refills 5, Route to Pharmacy Electronically, [id number], [facility], 167.64, cm, 09/10/21 7:14:00 [...]
--- OUTSIDE RECORDS SUMMARY | 2022-09-01 10:13 | XMS_ITS | Continuity of Care Document ---
:1960 Author Organization [facility] Address [address] [place] [address]- Care Team Providers Name Role Phone Toshia Quinteros NP Primary Care Physician Encounter [facility] Date(s): 10/07/20 - 11/19/20 [facility] [address] [place] [address] Attending Physician: Shawn Herring MD Admitting Physician: Shawn Herring MD Referring Physician: Toshia Quinteros NP Allergies, [...] 3 Refills, Maintenance, 10/28/19 10:27:00 EST, Tablet, [facility], 163.5, cm, 10/28/19 8:32:00 EST, Height, 83.7, kg, 09/09/19 8:32:00 EST, Dry Weight Start Date: 10/28/19 Status: Orderedatorvastatin 10 mg oral tablet 1 tablet = 10 mg, By Mouth, Daily, # 30 tablet, 5 Refills, Maintenance, 10/28/19 10:27:00 EST[facility], 30 DAY NEEDED PER INS, [...] PM, # 90 tablet, 5 Refills, Maintenance, 10/22/20 10:20:00 EST, [facility], 164.7, cm, 04/30/20 7:20:00 EDT, Height, 83, kg, 03/10/20 13:09:00 EDT, Dry Weight Start Date: 10/22/20 Status: Orderedhydrochlorothiazide-lisinopril 12.5 mg-10 mg oral tablet 1 tablet, By Mouth, Daily, # 90 tablet, 3 Refills, Maintenance, 10/28/19 10:27:00 EST, Tablet, [facility], 1 tablet By Mouth Daily, 163.5, cm, 10/28/19 8:32:00 EST, Height, 83.7, kg, 09/09/19 8:32:00 EST, Dry Weight Start Date: 10/28/19 Status: Orderedhydrochlorothiazide-lisinopril 25 mg-20 mg oral tablet 1 tablet, By Mouth, Daily, for 30 days, # 30 tablet, 0 Refills, Acute 12/12/20 9:53:00 EST, :53:00 EST, [facility], DOSE INCREASED, 1 tablet By Mouth Daily,x30 days, 164.7, cm, 11/12/20 9:52:00 EST, Height, 83, kg, 03/10/20 13:09:... Start Date: 11/12/20 Stop Date: 12/12/20 Status: OrderedmetFORMIN 500 mg oral tablet 2 tablet = 1,000 mg, By Mouth, 2 times a day, REPLACES 500MG ER 2 BID DUE TO RECALL, # 360 tablet, 1Refills, Maintenance, 09/30/20 6:55:00 EST, [facility], 164.7, cm, 04/30/20 7:20:00 EDT, Height, 83, kg, 03/10/20 13:09:00 EDT, Dry Weight Start Date: 09/30/20 Status: OrderedMultivitamin Daily, 0 Refills, Maintenance, 02/14/18 13:25:36 EDT Start Date: 02/14/18 Status: Orderedpantoprazole 40 mg oral delayed release tablet 1 tablet = 40 mg, By Mouth, Daily, # 90 tablet, 0 Refills, Maintenance, 09/30/20 6:55:00 EST, EC Tablet, 164.7, cm, 04/30/20 7:20:00 EDT, Height, 83, kg, 03/10/20 13:09:00 EDT, Dry Weight Start Date: 09/30/20 Status: OrderedProAir HFA 90 mcg/inh inhalation aerosol with adapter 2, puffs, Inhalation, Every 4 hours, PRN, # 8.5 Gm, Refills 1, Tot. Refills 1, Maintenance, :56:00 EST, Aerosol, Route to Pharmacy Electronically, [id number], [facility], 164.7, cm, 11/12/20 9:52:00 EST,... Start Date: 11/12/20 Status: Ordered Problem List Condition Effective Dates [...]
--- OUTSIDE RECORDS SUMMARY | 2022-09-01 10:13 | XMS_ITS | Continuity of Care Document ---
:1960 Author Organization [facility] Address [address] [place] [address]- Care Team Providers Name Role Phone Neli Toshia MONSALVE Primary Care Physician Encounter [facility] Date(s): 12/14/20 - 01/13/21 [facility] [address] [place] [address]- Allergies, Adverse Reactions, Alerts Substance Reaction Severity [...] 3 Refills, Maintenance, 10/28/19 10:27:00 EST, Tablet, [facility], 163.5, cm, 10/28/19 8:32:00 EST, Height, 83.7, kg, 09/09/19 8:32:00 EST, Dry Weight Start Date: 10/28/19 Status: Orderedatorvastatin 10 mg oral tablet 1 tablet = 10 mg, By Mouth, Daily, # 30 tablet, 5 Refills, Maintenance, 12/18/20 13:18:00 EDT, [facility], 30 DAY NEEDED PER INS, 164.7, cm, 11/12/20 9:52:00 EST, Height, 83, kg, 03/10/20 13:09:00 EDT, Dry Weight Start Date: 12/18/20 Status: Orderedduloxetine 30 mg oral enteric coated [...] tablet, 5 Refills, Maintenance, 10/22/20 10:20:00 EST, [facility], 164.7, cm, 04/30/20 7:20:00 EDT, Height, 83, kg, 03/10/20 13:09:00 EDT, Dry Weight Start Date: 10/22/20 Status: Orderedhydrochlorothiazide-lisinopril 12.5 mg-10 mg oral tablet 1 tablet, By Mouth, Daily, # 90 tablet, 3 Refills, Maintenance, 10/28/19 10:27:00 EST, Tablet, [facility], 1 tablet By Mouth Daily, 163.5, cm, 10/28/19 8:32:00 EST, Height, 83.7, kg, 09/09/19 8:32:00 EST, Dry Weight Start Date: 10/28/19 Status: Orderedhydrochlorothiazide-lisinopril 25 mg-20 mg oral tablet See Instructions, TAKE 1 TABLET BY MOUTH ONCE DAILY FOR 30 DAYS DOSE INCREASE, # 30 tablet, 0 Refills, Maintenance, [facility], 30, TAKE 1 TABLET BY MOUTH ONCE DAILY FOR 30 DAYS DOSE INCREASE, 164.7, cm, 11/12/20 9:52:00 EST, Heig... Start Date: 01/07/21 Status: OrderedmetFORMIN 500 mg oral tablet 2 tablet = 1,000 mg, By Mouth, 2 times a day, REPLACES 500MG ER 2 BID DUE TO RECALL, # 360 tablet, 1Refills, Maintenance, 09/30/20 6:55:00 EST, [facility], 164.7, cm, 04/30/20 7:20:00 [...] EDT, Dry Weight Start Date: 09/30/20 Status: Orderedpantoprazole 40 mg oral delayed release tablet See Instructions, Take 1 tablet by mouth once daily, # 90 tablet, 0 Refills, Maintenance, 164.7, cm,11/12/20 9:52:00 EST, Height, 83, kg, 03/10/20 13:09:00 EDT, Dry Weight Start Date: 01/07/21 Status: OrderedProAir HFA 90 mcg/inh inhalation aerosol with adapter 2, puffs, Inhalation, Every 4 hours, PRN, # 8.5 Gm, Refills 1, Tot. Refills 1, Maintenance, 219:56:00 EST, Aerosol, Route to Pharmacy Electronically, [id number], [facility], 164.7, cm, 11/12/20 9:52:00 [...]
--- OUTSIDE RECORDS SUMMARY | 2022-09-01 10:13 | XMS_ITS | Continuity of Care Document ---
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) - 01/13/22 Carotid stenosis (Discharge Diagnosis) - 01/13/22 Crohn's disease (Discharge Diagnosis) - 01/13/22 GERD (gastroesophageal reflux disease) (Discharge Diagnosis) - 01/13/22 Genital HSV (Discharge Diagnosis) - 01/13/22 Hypertension (Discharge Diagnosis) - 01/13/22 Bronchitis, chronic (Discharge Diagnosis) - 01/13/22 Cigarette smoker (Discharge Diagnosis) - 01/13/22 Attending Physician: Toshia Quinteros NP Referring Physician: Eliseo Vega MD Allergies, Adverse Reactions, Alerts No Known Allergies [...] # 180 tablet, 1 Refills, Physician Stop 07/12/22 7:05:00 EDT, 01/13/22 7:05:00 EDT, [facility], 167.64, cm, 01/13/22 6:45:00 EDT, Height, 69.1, kg, 09/07/21 8:34:00 EST, Dry Weight Start Date: 01/13/22 Stop Date: 07/12/22 Status: OrderedamLODIPine 5 mg oral tablet 5 mg, 1, tablet, By Mouth, Daily, for 30 days, # 30 tablet, Refills 0, Tot. Refills 0, Acute 02/12/22 7:04:00 EDT, 01/13/22 7:04:00 EDT, Route to Pharmacy Electronically, [facility], 167.64,cm, 01/13/22 6:45:00 EDT, Height, 69.1, kg, 09/07... Start Date: 01/13/22 Stop Date: 02/12/22 Status: Orderedaspirin 81 mg oral delayed release tablet 81 mg, 1, tablet, By Mouth, Daily, # 90 tablet, Refills 1, Tot. Refills 1, Maintenance, 01/13/22 7:05:00 EDT, Route to Pharmacy Electronically, [facility], 167.64, cm, 01/13/22 6:45:00 EDT, Height, 69.1, kg, 09/07/21 8:34:00 EST, Dry Weight Start Date: 01/13/22 Status: Orderedatorvastatin 10 mg oral tablet 1 tablet, By Mouth, Daily, # 30 tablet, 5 Refills, [facility], 167.64, cm, 09/10/21 7:14:00 EST, Height, 69.1, kg, 09/07/21 8:34:00 EST, Dry Weight Start Date: 09/13/21 Status: OrderedChantix Starter Pack 0.5 mg-1 mg oral tablet 1 tablet, By Mouth, 2 times a day, as directed on package labeling, # 53 tablet, 0 Refills, Maintenance, 01/13/22 7:08:00 EDT, Tablet, [facility], 1 tablet By Mouth 2 times a day,Instr:as directed on package labeling, 167.64, cm, 01/13/22 6... Start Date: 01/13/22 Status: Orderedduloxetine 30 mg oral enteric coated capsule 1 capsule = 30 mg, By Mouth, 2 times a day, # 180 capsule, 1 Refills, Maintenance, 06/28/21 8:34:00 EDT, EC Capsule, [facility], 161.5, cm, 06/28/21 8:31:00 EDT, Height, [...] THE EVENING, # 90 tablet, 0 Refills, [facility], 167.64, cm, 12/09/21 15:55:00 EST, Height, 69.1, kg, 09/07/21 8:34:00 EST, Dry Weight Start Date: 12/14/21 Status: Orderedhydrochlorothiazide-lisinopril 25 mg-20 mg oral tablet 1 tablet, By Mouth, Daily, # 30 tablet, 5 Refills, [facility], 30, Take 1 tablet by [...] Gm, Refills 5, Route to Pharmacy Electronically, [id number], [facility], 167.64, cm, 09/10/21 7:14:00 EST, [...] Dates Health Clinical Infor mant Status Service DM (diabetes Discharge 01/13/22 mellitus), type 2 Diagnosis Bronchitis, chronic Discharge 01/13/22 Diagnosis Hypertension Discharge 01/13/22 Diagnosis Cigarette smoker Discharge 01/13/22 Diagnosis Carotid stenosis Discharge 01/13/22 Diagnosis Crohn's disease Discharge 01/13/22 Diagnosis AIN (anal Discharge 01/13/22 intraepithelial Diagnosis neoplasia) anal canal JAGRUTI III (vulvar Discharge 01/13/22 intraepithelial Diagnosis neoplasia III) Osteopenia Discharge 01/13/22 Diagnosis GERD Discharge 01/13/22 (gastroesophageal Diagnosis reflux disease) Genital HSV Discharge 01/13/22 Diagnosis Vital Signs Most recent to oldest [Reference Range]: 1 2 Height 167.64 cm 167.64 cm (01/18/22 3:04 PM) (01/13/22 6:45 AM) Weight 68.7 kg 68.7 kg (01/18/22 3:04 PM) (01/13/22 6:45 AM) Oxygen Saturation [94-100 %] 98 % (01/13/22 6:45 AM) Pulse Rate [55-90 bpm] 70 bpm (01/13/22 6:45 AM) Body Mass Index [18.5-24.99] 24.45 (01/13/22 6:45 AM) Blood Pressure [90-138/55-84 mm Hg] 152/74 mm Hg *H* (01/13/22 6:45 AM) Mode of Delivery (Oxygen) Room air (01/13/22 6:45 AM) Blood pressure sites Arm, left (01/13/22 6:45 AM) Social History Social History Type Response Smoking Status 10 or more cigarettes (1/2 p ack or more)/day in last 30 days; Type: Cigarettes; Other: 0.5 PPD previously smoked 1 PPD until age 43; Number of years: 47; Total pack years: 38; Started at age: 13; entered on: 04/30/20 Sex
--- OUTSIDE RECORDS SUMMARY | 2022-09-01 10:13 | XMS_ITS | Continuity of Care Document ---
:1960 Author Organization [facility] Address Unavailable , Care Team Providers Name Role Phone Neli Toshia MONSALVE Primary Care Physician [place] [facility] [place](s): 09/02/21 - 10/02/21 [facility] Allergies, Adverse Reactions, Alerts Substance Reaction Severity Status NKA Active Immunizations Given and Recorded Vaccine Date Status Refusal Reason SARS-CoV-2 (COVID-19) mRNA-1273 vaccine 03/17/21 Recorded SARS-CoV-2 (COVID-19) mRNA-1279 vaccine 02/14/21 Recorded influenza virus vaccine, inactivated [...] a day, # 60 tablet, 0 Refills, [facility], 167.64, cm, 09/10/21 7:14:00 EST, Height, 69.1, kg, 09/07/21 8:34:00 EST, Dry Weight Start Date: 09/15/21 Status: Orderedaspirin 81 mg oral delayed release tablet 81 mg, 1, tablet, By Mouth, Daily, # 90 tablet, Refills 1, Tot. Refills 1, Maintenance, 06/28/21 8:34:00 EDT, Route to Pharmacy Electronically, [facility], 161.5, cm, 06/28/21 8:31:00 EDT, Height, 69.4, kg, 03/16/21 16:00:00 EDT, Dry Weight Start Date: 06/28/21 Status: Orderedatorvastatin 10 mg oral tablet 1 tablet, By Mouth, Daily, # 30 tablet, 5 Refills, [facility], 167.64, cm, 09/10/21 7:14:00 EST, Height, 69.1, kg, 09/07/21 8:34:00 EST, Dry Weight Start Date: 09/13/21 Status: OrderedColace sodium 100 mg oral capsule 100 mg, 1, capsule, By Mouth, 2 times a day, PRN, # 60 capsule, Refills 3, Tot. Refills 3, Maintenance, for constipation, 09/07/21 8:53:00 EST, Route to Pharmacy Electronically, [facility], Partial fill upon patient request if the prescript... Start Date: 09/07/21 Status: Orderedduloxetine 30 mg oral enteric coated capsule 1 capsule = 30 mg, By Mouth, 2 times a day, # 180 capsule, 1 Refills, Maintenance, 06/28/21 8:34:00 EDT, EC Capsule, [facility], 161.5, cm, 06/28/21 8:31:00 [...] tablet, 2 Refills, Maintenance, 08/16/21 9:57:00 EST, [facility], 161.5, cm, 07/05/21 16:07:00 EDT, Height,69.4, kg, 03/16/21 16:00:00 EDT, Dry Weight Start Date: 08/16/21 Status: Orderedhydrochlorothiazide-lisinopril 25 mg-20 mg oral tablet 1 tablet, By Mouth, Daily, for 90 days, # 90 tablet, 1 Refills, Physician Stop 12/25/21 8:31:00 EDT,06/28/21 8:31:00 EDT, [facility], 1 tablet By Mouth [...] Acute 12/25/21 8:31:00 EDT, 06/28/21 8:31:00 EDT, [facility], 161.5, cm, 06/28/21 8:31:00 [...] 09/07/21 8:53:00 EST, Route to Pharmacy Electronically, [facility], Partial fill upon patient [...] 07/01/2120:24:00 EDT, Aerosol, Route to Pharmacy Electronically, [id number], [facility], 161.5, cm, 06/28/21 8:31:00 EDT,... Start Date: 07/01/21 Status: OrderedValium 5 mg oral tablet 5 mg, 1, tablet, By Mouth, 3 times a day, PRN, # 40 tablet, Refills 0, Tot. Refills 0, Maintenance, Anal Spasm, 09/07/21 8:53:00 EST, Route to Pharmacy Electronically, [facility], Partial fill upon patient [...]
--- OUTSIDE RECORDS SUMMARY | 2022-09-01 10:13 | XMS_ITS | Continuity of Care Document ---
:1960 Author Organization [facility] Address [address] [place] [id number]- Care Team Providers Name Role Phone Neli MONSALVE, Toshia Dwyer Primary Care Physician En[place] [facility] [place](s): 06/12/20 - 07/26/[address] [address]- [facility] Attending Physician: Toshia Quinteros NP Admitting Physician: Toshia Quinteros NP Referring Physician: Silvia ANNE, Eliseo Omalley Allergies, Adverse Reactions, Alerts Substance Reaction Severity [...] 3 Refills, Maintenance, 10/28/19 10:27:00 EST, Tablet, [facility], 163.5, cm, 10/28/19 8:32:00 EST, Height, 83.7, kg, 09/09/19 8:32:00 EST, Dry Weight Start Date: 10/28/19 Status: Orderedatorvastatin 10 mg oral tablet 1 tablet = 10 mg, By Mouth, Daily, # 30 tablet, 5 Refills, Maintenance, 10/28/19 10:27:00 EST, [facility], 30 DAY NEEDED PER INS, 163.5, cm, 10/28/19 8:32:00 EST, Height, 83.7, kg, 09/09/19 8:32:00 EST, Dry Weight Start Date: 10/28/19 Status: Orderedchantix 1mg tablet 1 tablet, By Mouth, Daily, for 12 week(s), # 84 tablet, 0 Refills, Acute 10/08/20 8:03:00 EST, 07/16/20 8:03:00 EDT, [facility], 164.7, cm, 04/30/20 7:20:00 [...] tablet, 5 Refills, Maintenance, 04/30/20 7:39:00 EDT, [facility], 164.7, cm, 04/30/20 7:20:00 EDT, Height, 83, kg, 03/10/20 13:09:00 EDT, DryWeight Start Date: 04/30/20 Status: Orderedhydrochlorothiazide-lisinopril 12.5 mg-10 mg oral tablet 1 tablet, By Mouth, Daily, # 90 tablet, 3 Refills, Maintenance, 10/28/19 10:27:00 EST, Tablet, [facility], 1 tablet By Mouth Daily, 163.5, cm, 10/28/19 8:32:00 EST, Height, 83.7, kg, 09/09/19 8:32:00 EST, Dry Weight Start Date: 10/28/19 Status: OrderedmetFORMIN 500 mg oral tablet 2 tablet = 1,000 mg, By Mouth, 2 times a day, REPLACES 500MG ER 2 BID DUE TO RECALL, # 360 tablet, 1Refills, Maintenance, 03/24/20 14:03:00 EDT, [facility], 164.7, cm, 03/10/20 13:09:00 [...] 10/28/2009:26:00 EST, Aerosol, Route to Pharmacy Electronically, [id number], [facility], 163.5, cm, 10/28/19 8:32:00 [...]
--- OUTSIDE RECORDS SUMMARY | 2022-09-01 10:13 | XMS_ITS | Continuity of Care Document ---
:1960 Author Organization [facility] Address [address] [place] [address]- Care Team Providers Name Role Phone Neli Toshia MONSALVE Primary Care Physician Encounter [facility] [place] Date(s): 09/07/21 - 09/07/[address] [address] Discharge Disposition: A-D/C Home Attending Physician: Raymond Gonzales MD Admitting Physician: Raymond Gonzales MD Referring Physician: Raymond Gonzales MD Allergies, Adverse Reactions, Alerts Substance Reaction [...] a day, # 60 tablet, 0 Refills, [facility], 161.5, cm, 07/05/21 16:07:00 EDT, Height, 69.4, kg, 03/16/21 16:00:00 EDT, Dry Weight Start Date: 08/16/21 Status: Orderedaspirin 81 mg oral delayed release tablet 81 mg, 1, tablet, By Mouth, Daily, # 90 tablet, Refills 1, Tot. Refills 1, Maintenance, 06/28/21 8:34:00 EDT, Route to Pharmacy Electronically, [facility], 161.5, cm, 06/28/21 8:31:00 EDT, Height, 69.4, kg, 03/16/21 16:00:00 EDT, Dry Weight Start Date: 06/28/21 Status: Orderedatorvastatin 10 mg oral tablet 1 tablet, By Mouth, Daily, # 30 tablet, 2 Refills, [facility], 161.5, cm, 03/16/21 16:00:00 EDT, Height, 69.4, kg, 03/16/21 16:00:00 EDT, Dry Weight Start Date: 06/15/21 Status: OrderedColace sodium 100 mg oral capsule 100 mg, 1, capsule, By Mouth, 2 times a day, PRN, # 60 capsule, Refills 3, Tot. Refills 3, Maintenance, for constipation, 09/07/21 8:53:00 EST, Route to Pharmacy Electronically, [facility], Partial fill upon patient request if the prescript... Start Date: 09/07/21 Status: Orderedduloxetine 30 mg oral enteric coated capsule 1 capsule = 30 mg, By Mouth, 2 times a day, # 180 capsule, 1 Refills, Maintenance, 06/28/21 8:34:00 EDT, EC Capsule, [facility], 161.5, cm, 06/28/21 8:31:00 [...] tablet, 2 Refills, Maintenance, 08/16/21 9:57:00 EST, [facility], 161.5, cm, 07/05/21 16:07:00 EDT, Height,69.4, kg, 03/16/21 16:00:00 EDT, Dry Weight Start Date: 08/16/21 Status: Orderedhydrochlorothiazide-lisinopril 25 mg-20 mg oral tablet 1 tablet, By Mouth, Daily, for 90 days, # 90 tablet, 1 Refills, Physician Stop 12/25/21 8:31:00 EDT,06/28/21 8:31:00 EDT, [facility], 1 tablet By Mouth [...] Acute 12/25/21 8:31:00 EDT, 06/28/21 8:31:00 EDT, [facility], 161.5, cm, 06/28/21 8:31:00 [...] 09/07/21 8:53:00 EST, Route to Pharmacy Electronically, [facility], Partial fill upon patient request if the prescriptio... Start Date: 09/07/21 Status: OrderedOxycodone 5mg/Acetaminophen 325mg Tablet 2 tablet, Tablet, By Mouth, Every 4 hours, PRN for Pain , Moderate, Routine, 09/07/21 10:04:00 EST Start Date: 09/07/21 Stop Date: 09/07/21 Status: Discontinuedpantoprazole 40 mg oral delayed release tablet 1 [...] 07/01/2120:24:00 EDT, Aerosol, Route to Pharmacy Electronically, [id number], [facility], 161.5, cm, 06/28/21 8:31:00 EDT,... Start Date: 07/01/21 Status: OrderedValium 5 mg oral tablet 5 mg, 1, tablet, By Mouth, 3 times a day, PRN, # 40 tablet, Refills 0, Tot. Refills 0, Maintenance, Anal Spasm, 09/07/21 8:53:00 EST, Route to Pharmacy Electronically, [facility], Partial fill upon patient request if the [...] III)(Confirmed) Vital Signs Most recent to oldest 1 2 3 [Reference Range]: Height 167.64 cm 167.64 cm (09/07/21 8:34 AM) (09/02/21 3:48 PM) Weight 69.1 kg 68.18 kg (09/07/21 8:34 AM) (09/02/21 3:48 PM) Oxygen Saturation [94-100 98 % 99 % 99 % %] (09/07/21 10:30 AM) (09/07/21 10:15 AM) (09/07/21 1 0:00 AM) Pulse Rate [55-90 bpm] 67 bpm (09/07/21 8:34 AM) Body Mass Index 24.59 24.26 [18.5-24.99] (09/07/21 8:34 AM) (09/02/21 3:48 PM) Blood Pressure 147/76 mm Hg 147/76 mm Hg 124/82 mm Hg [90-138/55-84 mm Hg] *H* *H* (09/07/21 10 :00 AM) (09/07/21 10:30 AM) (09/07/21 10:15 AM) Respiratory Rate [16-30 20 br/min 24 br/min 14 br/mi n br/min] (09/07/21 10:30 AM) (09/07/21 10:15 AM) *L* (09/07/21 10:02 A M) Temperature [96.8-100.4 97.5 DegF 97.9 DegF 97.8 Deg F DegF] (09/07/21 9:45 AM) (09/07/21 9:43 AM) (09/07/21 8:3 4 AM) Mode of Delivery (Oxygen) Room air Room air Room a ir (09/07/21 10:30 AM) (09/07/21 10:15 AM) (09/07/21 1 0:00 AM) Blood pressure sites Arm, right Arm, left (09/07/21 9:43 AM) (09/07/21 8:34 AM) Temperature Route Temporal Temporal (09/07/21 9:43 AM) (09/07/21 8:34 AM) Dry Weight 69.1 kg 68.18 kg (09/07/21 8:34 AM) (09/02/21 3:48 PM) Weight Obtained Via Standing scale (09/07/21 8:34 AM) Dry Weight Obtained Via Standing scale Patient/family stated (09/07/21 8:34 AM) (09/02/21 3:48 PM) Social History Social History Type Response Smoking Status 10 or more cigarettes (1/2 p ack or more)/day in last 30 days; Type: Cigarettes; Other: 0.5 PPD previously smoked 1 PPD until age 43; Number of years: 47; Total pack years: 38; Started at age: 13; entered on: 04/30/20 Sex
--- OUTSIDE RECORDS SUMMARY | 2022-09-01 10:13 | XMS_ITS | Continuity of Care Document ---
:1960 Author Organization [facility] Address Unavailable , Care Team Providers Name Role Phone Neli Toshia MONSALVE Primary Care Physician [place] [facility] [place]07[place] 10/07/21 [facility] Allergies, Adverse Reactions, Alerts Substance Reaction [...] a day, # 60 tablet, 0 Refills, [facility], 167.64, cm, 09/10/21 7:14:00 EST, Height, 69.1, kg, 09/07/21 8:34:00 EST, Dry Weight Start Date: 09/15/21 Status: Orderedaspirin 81 mg oral delayed release tablet 81 mg, 1, tablet, By Mouth, Daily, # 90 tablet, Refills 1, Tot. Refills 1, Maintenance, 06/28/21 8:34:00 EDT, Route to Pharmacy Electronically, [facility], 161.5, cm, 06/28/21 8:31:00 EDT, Height, 69.4, kg, 03/16/21 16:00:00 EDT, Dry Weight Start Date: 06/28/21 Status: Orderedatorvastatin 10 mg oral tablet 1 tablet, By Mouth, Daily, # 30 tablet, 5 Refills, [facility], 167.64, cm, 09/10/21 7:14:00 EST, Height, 69.1, kg, 09/07/21 8:34:00 EST, Dry Weight Start Date: 09/13/21 Status: OrderedColace sodium 100 mg oral capsule 100 mg, 1, capsule, By Mouth, 2 times a day, PRN, # 60 capsule, Refills 3, Tot. Refills 3, Maintenance, for constipation, 09/07/21 8:53:00 EST, Route to Pharmacy Electronically, [facility], Partial fill upon patient request if the prescript... Start Date: 09/07/21 Status: Orderedduloxetine 30 mg oral enteric coated capsule 1 capsule = 30 mg, By Mouth, 2 times a day, # 180 capsule, 1 Refills, Maintenance, 06/28/21 8:34:00 EDT, EC Capsule, [facility], 161.5, cm, 06/28/21 [...] tablet, 2 Refills, Maintenance, 08/16/21 9:57:00 EST, [facility], 161.5, cm, 07/05/21 16:07:00 EDT, Height,69.4, kg, 03/16/21 16:00:00 EDT, Dry Weight Start Date: 08/16/21 Status: Orderedhydrochlorothiazide-lisinopril 25 mg-20 mg oral tablet 1 tablet, By Mouth, Daily, for 90 days, # 90 tablet, 1 Refills, Physician Stop 12/25/21 8:31:00 EDT,06/28/21 8:31:00 EDT, [facility], 1 tablet By [...] Acute 12/25/21 8:31:00 EDT, 06/28/21 8:31:00 EDT, [facility], 161.5, cm, 06/28/21 [...] 09/07/21 8:53:00 EST, Route to Pharmacy Electronically, [facility], Partial fill upon [...] 07/01/2120:24:00 EDT, Aerosol, Route to Pharmacy Electronically, [id number], [facility], 161.5, cm, 06/28/21 8:31:00 EDT,... Start Date: 07/01/21 Status: OrderedValium 5 mg oral tablet 5 mg, 1, tablet, By Mouth, 3 times a day, PRN, # 40 tablet, Refills 0, Tot. Refills 0, Maintenance, Anal Spasm, 09/07/21 8:53:00 EST, Route to Pharmacy Electronically, [facility], Partial fill upon [...]
--- OUTSIDE RECORDS SUMMARY | 2022-09-01 10:14 | XMS_ITS | Continuity of Care Document ---
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) - 04/30/20 Bronchitis, chronic (Discharge Diagnosis) - 04/30/20 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) - 04/30/20 Osteopenia (Discharge Diagnosis) - 04/30/20 Obesity (Discharge Diagnosis) - 04/30/20 Hypertension (Discharge Diagnosis) - 04/30/20 Crohn's disease (Discharge Diagnosis) - 04/30/20 GERD (gastroesophageal reflux disease) (Discharge Diagnosis) - 04/30/20 Cigarette smoker (Discharge Diagnosis) - 04/30/20 Carotid stenosis (Discharge Diagnosis) - 04/30/20 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) - 04/30/20 Dense breasts (Discharge Diagnosis) - 04/30/20 Vitamin D insufficiency (Discharge Diagnosis) - 04/30/20 Attending Physician: Toshia Quinteros NP Referring Physician: Silvia [...] 3 Refills, Maintenance, 10/28/19 10:27:00 EST, Tablet, [facility], 163.5, cm, 10/28/19 8:32:00 EST, Height, 83.7, kg, 09/09/19 8:32:00 EST, Dry Weight Start Date: 10/28/19 Status: Orderedatorvastatin 10 mg oral tablet 1 tablet = 10 mg, By Mouth, Daily, # 30 tablet, 5 Refills, Maintenance, 10/28/19 10:27:00 EST, [facility], 30 DAY NEEDED PER INS, 163.5, cm, 10/28/19 8:32:00 EST, Height, 83.7, kg, 09/09/19 8:32:00 EST, Dry Weight Start Date: 10/28/19 Status: Orderedchantix 1mg tablet 1 tablet, By Mouth, Daily, for 12 week(s), # 84 tablet, 0 Refills, Acute, 04/08/20 11:12:00 EDT, [facility], 164.7, cm, 03/10/20 13:09:00 EDT, Height, 83, kg, 03/10/20 13:09:00 EDT, Dry Weight Start Date: 04/08/20 Stop Date: 07/01/20 Status: Orderedduloxetine 30 mg oral enteric coated [...] tablet, 5 Refills, Maintenance, 04/30/20 7:39:00 EDT, [facility], 164.7, cm, 04/30/20 7:20:00 EDT, Height, 83, kg, 03/10/20 13:09:00 EDT, DryWeight Start Date: 04/30/20 Status: Orderedhydrochlorothiazide-lisinopril 12.5 mg-10 mg oral tablet 1 tablet, By Mouth, Daily, # 90 tablet, 3 Refills, Maintenance, 10/28/19 10:27:00 EST, Tablet, [facility], 1 tablet By Mouth Daily, 163.5, cm, 10/28/19 8:32:00 EST, Height, 83.7, kg, 09/09/19 8:32:00 EST, Dry Weight Start Date: 10/28/19 Status: OrderedmetFORMIN 500 mg oral tablet 2 tablet = 1,000 mg, By Mouth, 2 times a day, REPLACES 500MG ER 2 BID DUE TO RECALL, # 360 tablet, 1Refills, Maintenance, 03/24/20 14:03:00 EDT, [facility], 164.7, cm, 03/10/20 13:09:00 EDT, Height, 83, kg, 03/10/20 13:09:00 EDT, Dry Weight Start Date: 03/24/20 Status: OrderedmetFORMIN 500 mg oral tablet, extended release 2 tablet = 1,000 mg, By Mouth, 2 times a day, for 90 days, # 360 tablet, 1 Refills, Hard Stop 06/11/20 9:05:09 EDT, 12/14/19 9:05:09 EDT, [facility] Start Date: 12/14/19 Stop Date: [...] 10/28/2009:26:00 EST, Aerosol, Route to Pharmacy Electronically, [id number], [facility], 163.5, cm, 10/28/19 8:32:00 EST,... [...] mant Status Service Annual physical exam Discharge 04/29/20 Diagnosis DM (diabetes Discharge 04/30/20 mellitus), type 2 Diagnosis DM type 2 with Discharge 04/30/20 diabetic peripheral Diagnosis neuropathy Bronchitis, chronic Discharge 04/30/20 Diagnosis JAGRUTI III (vulvar Discharge 04/30/20 intraepithelial Diagnosis neoplasia III) Osteopenia Discharge 04/30/20 Diagnosis Obesity Discharge 04/30/20 Diagnosis Hypertension Discharge 04/30/20 Diagnosis Crohn's disease Discharge 04/30/20 Diagnosis GERD Discharge 04/30/20 (gastroesophageal Diagnosis reflux disease) Cigarette smoker Discharge 04/30/20 Diagnosis Carotid stenosis Discharge 04/30/20 Diagnosis AIN (anal Discharge 04/30/20 intraepithelial Diagnosis neoplasia) anal canal Dense breasts Discharge 04/30/20 Diagnosis Vitamin D Discharge 04/30/20 insufficiency Diagnosis Vital Signs Most recent to oldest [Reference Range]: 1 Height 164.7 cm (04/30/20 7:20 AM) Weight 81.4 kg (04/30/20 7:20 AM) Oxygen Saturation [94-100 %] 98 % (04/30/20 7:20 AM) Pulse Rate [55-90 bpm] 81 bpm (04/30/20 7:20 AM) Body Mass Index [18.5-24.99] 30.01 *>HHI* (04/30/20 7:20 AM) Blood Pressure [90-138/55-84 mm Hg] 128/78 mm Hg (04/30/20 7:20 AM) Temperature [96.8-100.4 DegF] 98.3 DegF (04/30/20 7:20 AM) Mode of Delivery (Oxygen) Room air (04/30/20 7:20 AM) Blood pressure sites Arm, left (04/30/20 7:20 AM) Temperature Route Oral (04/30/20 7:20 AM) Weight Obtained Via Standing scale (04/30/20 7:20 AM) Social History Social History Type Response Smoking Status 10 or more cigarettes (1/2 p ack or more)/day in last 30 days; Type: Cigarettes; Other: 0.5 PPD previously smoked 1 PPD until age 43; Number of years: 47; Total pack years: 38; Started at age: 13; entered on: 04/30/20 Sex
--- OUTSIDE RECORDS SUMMARY | 2022-09-01 10:14 | XMS_ITS | Continuity of Care Document ---
:1960 Author Organization [facility] Address [address] [place] [address]- Care Team Providers Name Role Phone Neli Toshia MONSALVE Primary Care Physician Encounter [facility] Date(s): 04/13/22 - 05/13/22 [facility] [address] [place] [address]- Allergies, Adverse Reactions, Alerts No Known Allergies [...] a day, # 60 tablet, 0 Refills, [facility], 167.64, cm, 01/18/22 15:04:00 EDT, Height, 69.1, kg, 09/07/21 8:34:00 EST, Dry Weight Start Date: 03/01/22 Status: Orderedaspirin 81 mg oral delayed release tablet 81 mg, 1, tablet, By Mouth, Daily, # 90 tablet, Refills 1, Tot. Refills 1, Maintenance, 01/13/22 7:05:00 EDT, Route to Pharmacy Electronically, [facility], 167.64, cm, 01/13/22 6:45:00 EDT, Height, 69.1, kg, 09/07/21 8:34:00 EST, Dry Weight Start Date: 01/13/22 Status: Orderedatorvastatin 10 mg oral tablet 1 tablet, By Mouth, Daily, # 30 tablet, 5 Refills, [facility], 167.64, cm, 01/18/22 15:04:00 EDT, Height, 69.1, kg, 09/07/21 8:34:00 EST, Dry Weight Start Date: 02/25/22 Status: OrderedChantix Starter Pack 0.5 mg-1 mg oral tablet 1 tablet, By Mouth, 2 times a day, as directed on package labeling, # 53 tablet, 0 Refills, Maintenance, 01/13/22 7:08:00 EDT, Tablet, [facility], 1 tablet By Mouth 2 times a day,Instr:as directed on package labeling, 167.64, cm, 01/13/22 6... Start Date: 01/13/22 Status: Orderedduloxetine 30 mg oral enteric coated capsule 1 capsule = 30 mg, By Mouth, 2 times a day, # 180 capsule, 1 Refills, Maintenance, 06/28/21 8:34:00 EDT, EC Capsule, [facility], 161.5, cm, 06/28/21 8:31:00 EDT, [...] THE EVENING, # 90 tablet, 0 Refills, [facility], 167.64, cm, 12/09/21 15:55:00 EST, Height, 69.1, kg, 09/07/21 8:34:00 EST, Dry Weight Start Date: 12/14/21 Status: Orderedhydrochlorothiazide-lisinopril 25 mg-20 mg oral tablet 1 tablet, By Mouth, 2 times a day, for 90 days, # 180 tablet, 1 Refills, Physician Stop 09/18/22 23:52:00 EST, 03/22/22 23:52:00 EDT, [facility], 1 tablet By Mouth 2 [...] FURTHER REFILLS ),# 360 tablet, 0 Refills, [facility], 163.3, cm, 03/22/22 14:21:00 EDT, [...] Gm, Refills 5, Route to Pharmacy Electronically, [id number], [facility], 167.64, cm, 09/10/21 [...]
--- OUTSIDE RECORDS SUMMARY | 2022-09-01 10:14 | XMS_ITS | Continuity of Care Document ---
:1960 Author Organization [facility] Address [address] [place] [address]- Care Team Providers Name Role Phone Neli Toshia MONSALVE Primary Care Physician Encounter [facility] Date(s): 10/21/20 - 11/20/20 [facility] [address] [place] [id number] Allergies, Adverse Reactions, Alerts Substance Reaction Severity [...] 3 Refills, Maintenance, 10/28/19 10:27:00 EST, Tablet, [facility], 163.5, cm, 10/28/19 8:32:00 EST, Height, 83.7, kg, 09/09/19 8:32:00 EST, Dry Weight Start Date: 10/28/19 Status: Orderedatorvastatin 10 mg oral tablet 1 tablet = 10 mg, By Mouth, Daily, # 30 tablet, 5 Refills, Maintenance, 10/28/19 10:27:00 EST, [facility], 30 DAY NEEDED PER [...] tablet, 5 Refills, Maintenance, 10/22/20 10:20:00 EST, [facility], 164.7, cm, 04/30/20 7:20:00 EDT, Height, 83, kg, 03/10/20 13:09:00 EDT, Dry Weight Start Date: 10/22/20 Status: Orderedhydrochlorothiazide-lisinopril 12.5 mg-10 mg oral tablet 1 tablet, By Mouth, Daily, # 90 tablet, 3 Refills, Maintenance, 10/28/19 10:27:00 EST, Tablet, [facility], 1 tablet By Mouth Daily, 163.5, cm, 10/28/19 8:32:00 EST, Height, 83.7, kg, 09/09/19 8:32:00 EST, Dry Weight Start Date: 10/28/19 Status: Orderedhydrochlorothiazide-lisinopril 25 mg-20 mg oral tablet 1 tablet, By Mouth, Daily, for 30 days, # 30 tablet, 0 Refills, Acute 12/12/20 9:53:00 EST, :53:00 EST, [facility], DOSE INCREASED, 1 tablet By Mouth Daily,x30 days, 164.7, cm, 11/12/20 9:52:00 EST, Height, 83, kg, 03/10/20 13:09:... Start Date: 11/12/20 Stop Date: 12/12/20 Status: OrderedmetFORMIN 500 mg oral tablet 2 tablet = 1,000 mg, By Mouth, 2 times a day, REPLACES 500MG ER 2 BID DUE TO RECALL, # 360 tablet, 1Refills, Maintenance, 09/30/20 6:55:00 EST, [facility], 164.7, cm, 04/30/20 7:20:00 [...] :56:00 EST, Aerosol, Route to Pharmacy Electronically, [id number], [facility], 164.7, cm, 11/12/20 9:52:00 [...]
--- OUTSIDE RECORDS SUMMARY | 2022-09-01 10:14 | XMS_ITS | Continuity of Care Document ---
:1960 Author Organization [facility] Address [address] [place] [address]- Care Team Providers Name Role Phone Neli Toshia MONSALVE Primary Care Physician Encounter [facility] Date(s): 06/29/21 - 07/29/21 [facility] [address] [place] [id number] Attending Physician: Admtr, Paresh Admitting Physician: Admtr, Ar8 Referring Physician: Admtr, [...] 8:34:00 EDT, Route to Pharmacy Electronically, [facility], 161.5, cm, 06/28/21 8:31:00 EDT, Height, 69.4, kg, 03/16/21 16:00:00 EDT, Dry Weight Start Date: 06/28/21 Status: Orderedatorvastatin 10 mg oral tablet 1 tablet, By Mouth, Daily, # 30 tablet, 2 Refills, [facility], 161.5, cm, 03/16/21 16:00:00 EDT, Height, 69.4, kg, 03/16/21 16:00:00 EDT, Dry Weight Start Date: 06/15/21 Status: Orderedduloxetine 30 mg oral enteric coated capsule 1 capsule = 30 mg, By Mouth, 2 times a day, # 180 capsule, 1 Refills, Maintenance, 06/28/21 8:34:00 EDT, EC Capsule, [facility], 161.5, cm, 06/28/21 8:31:00 [...] REFILLS*, # 90 tablet, 0 Refills, [facility], 161.5, cm, 07/05/21 16:07:00 EDT, Height, 69.4, kg, 03/16/21 16:00:00 EDT, Dry Weight Start Date: 07/19/21 Status: Orderedhydrochlorothiazide-lisinopril 25 mg-20 mg oral tablet 1 tablet, By Mouth, Daily, for 90 days, # 90 tablet, 1 Refills, Physician Stop 12/25/21 8:31:00 EDT,06/28/21 8:31:00 EDT, [facility], 1 tablet By Mouth [...] 12/25/21 8:31:00 EDT, 06/28/21 8:31:00 EDT, [facility], 161.5, cm, 06/28/21 8:31:00 [...] 07/01/2120:24:00 EDT, Aerosol, Route to Pharmacy Electronically, [id number], [facility], 161.5, cm, 06/28/21 8:31:00 [...]
--- OUTSIDE RECORDS SUMMARY | 2022-09-01 10:14 | XMS_ITS | Continuity of Care Document ---
:1960 Author Organization [facility] Address [address] [place] [address]- Care Team Providers Name Role Phone Neli Toshia MONSALVE Primary Care Physician Encounter [facility] Date(s): 12/13/21 - 01/12/22 [facility] [address] [place] [address]- Allergies, Adverse Reactions, Alerts No Known Allergies [...] [facility], 167.64, cm, 12/23/21 11:16:00 EDT, [...] THE EVENING, # 90 tablet, 0 Refills, [facility], 167.64, cm, 12/09/21 15:55:00 EST, Height, 69.1, kg, 09/07/21 8:34:00 EST, Dry Weight Start Date: 12/14/21 Status: Orderedhydrochlorothiazide-lisinopril 25 mg-20 mg oral tablet 1 tablet, By Mouth, Daily, # 30 tablet, 5 Refills, [facility], 30, Take 1 tablet [...] Gm, Refills 5, Route to Pharmacy Electronically, [id number], [facility], 167.64, cm, [...]
--- OUTSIDE RECORDS SUMMARY | 2022-09-01 10:14 | XMS_ITS | Continuity of Care Document ---
:1960 Author Organization [facility] Address Unavailable , Care Team Providers Name Role Phone Neli Toshia MONSALVE Primary Care Physician [place] [facility] [place](s): 07/05/21 - 08/04/21 [facility] Attending Physician: Paresh Hodges Admitting Physician: Paresh Hodges Referring Physician: Paresh Hodges Allergies, Adverse Reactions, Alerts Substance Reaction Severity [...] Route to Pharmacy Electronically, [facility], 161.5, cm, 06/28/21 8:31:00 EDT, Height, 69.4, kg, 03/16/21 16:00:00 EDT, Dry Weight Start Date: 06/28/21 Status: Orderedatorvastatin 10 mg oral tablet 1 tablet, By Mouth, Daily, # 30 tablet, 2 Refills, [facility], 161.5, cm, 03/16/21 16:00:00 EDT, Height, 69.4, kg, 03/16/21 16:00:00 EDT, Dry Weight Start Date: 06/15/21 Status: Orderedduloxetine 30 mg oral enteric coated capsule 1 capsule = 30 mg, By Mouth, 2 times a day, # 180 capsule, 1 Refills, Maintenance, 06/28/21 8:34:00 EDT, EC Capsule, [facility], 161.5, cm, 06/28/21 8:31:00 [...] FORFURTHER REFILLS*, # 90 tablet, 0 Refills, [facility], 161.5, cm, 07/05/21 16:07:00 EDT, Height, 69.4, kg, 03/16/21 16:00:00 EDT, Dry Weight Start Date: 07/19/21 Status: Orderedhydrochlorothiazide-lisinopril 25 mg-20 mg oral tablet 1 tablet, By Mouth, Daily, for 90 days, # 90 tablet, 1 Refills, Physician Stop 12/25/21 8:31:00 EDT,06/28/21 8:31:00 EDT, [facility], 1 tablet By Mouth Daily,x90 [...] EDT, 06/28/21 8:31:00 EDT, [facility], 161.5, cm, 06/28/21 8:31:00 EDT, [...] 07/01/2120:24:00 EDT, Aerosol, Route to Pharmacy Electronically, [id number], [facility], 161.5, cm, 06/28/21 8:31:00 EDT,... [...]
--- OUTSIDE RECORDS SUMMARY | 2022-09-01 10:14 | XMS_ITS | Continuity of Care Document ---
:1960 Author Organization [facility] Address [address], [address] [place] [address]- Care Team Providers Name Role Phone Neli MONSALVE, Toshia Dwyer Primary Care Physician Encounter 08/09/22 - 08/16/22 [facility] [address], [address] [place] [address]- Attending Physician: Toshia Quinteros NP Admitting Physician: [...] 180 tablet, 0 Refills, Maintenance, 08/10/22 18:28:00 EST, [facility], 163, cm, 06/28/22 13:52:00 EDT, Height, 65.9, kg, 03/22/22 14:21:00 EDT, Dry Weight Start Date: 08/10/22 Status: Orderedaspirin 81 mg oral delayed release tablet 81 mg, 1, tablet, By Mouth, Daily, # 90 tablet, Refills 1, Tot. Refills 1, Maintenance, 01/13/22 7:05:00 EDT, Route to Pharmacy Electronically, [facility], 167.64, cm, 01/13/22 6:45:00 EDT, Height, 69.1, kg, 09/07/21 8:34:00 EST, Dry Weight Start Date: 01/13/22 Status: Orderedatorvastatin 10 mg oral tablet 1 tablet, By Mouth, Daily, # 30 tablet, 5 Refills, [facility], 167.64, cm, 01/18/22 15:04:00 EDT, Height, 69.1, kg, 09/07/21 8:34:00 EST, Dry Weight Start Date: 02/25/22 Status: OrderedChantix Starter Pack 0.5 mg-1 mg oral tablet 1 tablet, By Mouth, 2 times a day, as directed on package labeling, # 53 tablet, 0 Refills, Maintenance, 01/13/22 7:08:00 EDT, Tablet, [facility], 1 tablet By Mouth 2 times a day,Instr:as directed on package labeling, 167.64, cm, 01/13/22 6... Start Date: 01/13/22 Status: Orderedduloxetine 30 mg oral enteric coated capsule 1 capsule = 30 mg, By Mouth, 2 times a day, # 180 capsule, 1 Refills, Maintenance, 06/28/21 8:34:00 EDT, EC Capsule, [facility], 161.5, cm, 06/28/21 8:31:00 [...] THE EVENING, # 90 tablet, 0 Refills, [facility], 167.64, cm, 12/09/21 15:55:00 EST, Height, 69.1, kg, 09/07/21 8:34:00 EST, Dry Weight Start Date: 12/14/21 Status: Orderedhydrochlorothiazide-lisinopril 25 mg-20 mg oral tablet 1 tablet, By Mouth, 2 times a day, for 90 days, # 180 tablet, 1 Refills, Physician Stop 09/18/22 23:52:00 EST, 03/22/22 23:52:00 EDT, [facility], 1 tablet By Mouth [...] FURTHER REFILLS ),# 360 tablet, 0 Refills, [facility], 163.3, cm, 03/22/22 14:21:00 [...] Gm, Refills 5, Route to Pharmacy Electronically, [id number], [facility], 167.64, cm, 09/10/21 7:14:00 [...] 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 No known abnormalities. Nonfirst degree relative with breast cancer. COMPARISON: Multiple priors TECHNIQUE: Full-field digital CC and MLO views of both breasts were obtained. Computer-aided detection (CAD) was utilized in the interpretation of this study. Bilateral tomosynthesis views were obtained. DENSITY: The breast tissue contains scattered areas of fibroglandular density. FINDINGS: No suspicious masses, suspicious microcalcifications, or areas of architectural distortionto suggest malignancy. Bilateral benign microcalcifications. IMPRESSION: No mammographic evidence of malignancy. RECOMMENDATION: Annual mammographic screening BI-RADS: 2 (Benign) Lay letter mailed to patient WSN: [id number] Ordering Physician: Toshia Quinteros Dictated By: Lexi Mark MD Dictated Date/Time: 08/09/22 12:30 pm Reviewed By: Lexi Mark MD Signed By: Lexi Mark MD Signed Date/Time: 08/09/22 12:30 pm Transcribed By: BRIAN Relief Pharmacist Date/Time: 08/09/22 11:45 am Birads: Social History Social History Type Response Smoking Status 10 or more cigarettes (1/2 p ack or more)/day in last 30 days; Type: Cigarettes; Other: 0.5 PPD previously smoked 1 PPD until age 43; Number of years: 47; Total pack years: 38; Started at age: 13; entered on: 04/30/20 Sex MG Breast Screening [facility]SPowerscribe , CIS S: TRANSCRIBE Lexi Mark MD: VERIFY Event Display: Result: Authored Date: [id number] PROCEDURE: MM Digital Mammo Screening INDICATION: Screening. No known abnormalities. Nonfirst degree relative with breast cancer. COMPARISON: Multiple priors TECHNIQUE: Full-field digital CC and MLO views of both breasts were obtained. Computer-aided detection (CAD) was utilized in the interpretation of this study. Bilateral tomosynthesis views were obtained. DENSITY: The breast tissue contains scattered areas of fibroglandular density. FINDINGS: No suspicious masses, suspicious microcalcifications, or areas of architectural distortionto suggest malignancy. Bilateral benign microcalcifications. IMPRESSION: No mammographic evidence of malignancy. RECOMMENDATION: Annual mammographic screening BI-RADS: 2 (Benign) Lay letter mailed to patient WSN: [id number] Ordering Physician: Toshia Quinteros Dictated By: Lexi Mark MD Dictated Date/Time: 08/09/22 12:30 pm Reviewed By: Lexi Mark MD Signed By: Lexi Mark MD Signed Date/Time: 08/09/22 12:30 pm Transcribed By: BRIAN Relief Pharmacist Date/Time: 08/09/22 11:45 am Birads: Patient Care team information Care Team PersonnelName: Toshia Quinteros NP Position: [facility] PCO Associate Professional Member Role: PCP Address: Address: [address] [place] [id number]- Name: Kanwal Baird RN Position: [facility] AMB Nurse Member Role: Primary Care Nurse Care Team Related PersonsName: LETA CARRILLO Name: LORRAINE FISCHER Address: [address] [address]
--- OUTSIDE RECORDS SUMMARY | 2022-09-01 10:14 | XMS_ITS | Continuity of Care Document ---
:1960 Author Organization [facility] Address [address] [place] [address]- Care Team Providers Name Role Phone Neli Toshia MONSALVE Primary Care Physician Encounter [facility] Date(s): 04/23/20 - 05/23/20 [facility] [address] [place] [id number]- [facility] Allergies, Adverse Reactions, Alerts Substance Reaction [...] 3 Refills, Maintenance, 10/28/19 10:27:00 EST, Tablet, [facility], 163.5, cm, 10/28/19 8:32:00 EST, Height, 83.7, kg, 09/09/19 8:32:00 EST, Dry Weight Start Date: 10/28/19 Status: Orderedatorvastatin 10 mg oral tablet 1 tablet = 10 mg, By Mouth, Daily, # 30 tablet, 5 Refills, Maintenance, 10/28/19 10:27:00 EST, [facility], 30 DAY NEEDED PER INS, 163.5, cm, 10/28/19 8:32:00 EST, Height, 83.7, kg, 09/09/19 8:32:00 EST, Dry Weight Start Date: 10/28/19 Status: Orderedchantix 1mg tablet 1 tablet, By Mouth, Daily, for 12 week(s), # 84 tablet, 0 Refills, Acute, 04/08/20 11:12:00 EDT, [facility], 164.7, cm, 03/10/20 13:09:00 EDT, [...] tablet, 5 Refills, Maintenance, 04/30/20 7:39:00 EDT, [facility], 164.7, cm, 04/30/20 7:20:00 EDT, Height, 83, kg, 03/10/20 13:09:00 EDT, DryWeight Start Date: 04/30/20 Status: Orderedhydrochlorothiazide-lisinopril 12.5 mg-10 mg oral tablet 1 tablet, By Mouth, Daily, # 90 tablet, 3 Refills, Maintenance, 10/28/19 10:27:00 EST, Tablet, [facility], 1 tablet By Mouth Daily, 163.5, cm, 10/28/19 8:32:00 EST, Height, 83.7, kg, 09/09/19 8:32:00 EST, Dry Weight Start Date: 10/28/19 Status: OrderedmetFORMIN 500 mg oral tablet 2 tablet = 1,000 mg, By Mouth, 2 times a day, REPLACES 500MG ER 2 BID DUE TO RECALL, # 360 tablet, 1Refills, Maintenance, 03/24/20 14:03:00 EDT, [facility], 164.7, cm, 03/10/20 13:09:00 EDT, Height, 83, kg, 03/10/20 13:09:00 EDT, Dry Weight Start Date: 03/24/20 Status: OrderedmetFORMIN 500 mg oral tablet, extended release 2 tablet = 1,000 mg, By Mouth, 2 times a day, for 90 days, # 360 tablet, 1 Refills, Hard Stop 06/11/20 9:05:09 EDT, 12/14/19 9:05:09 EDT, [facility] Start Date: 12/14/19 Stop Date: [...] 10/28/2009:26:00 EST, Aerosol, Route to Pharmacy Electronically, [id number], [facility], 163.5, cm, 10/28/19 8:32:00 EST,... [...]
--- OUTSIDE RECORDS SUMMARY | 2022-09-01 10:14 | XMS_ITS | Continuity of Care Document ---
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 Refills 1, Maintenance, 06/28/21 8:34:00 EDT, Route to Pharmacy Electronically, [facility], 161.5, cm, 06/28/21 8:31:00 EDT, Height, 69.4, kg, 03/16/21 16:00:00 EDT, Dry Weight Start Date: 06/28/21 Status: Orderedatorvastatin 10 mg oral tablet 1 tablet, By Mouth, Daily, # 30 tablet, 2 Refills, [facility], 161.5, cm, 03/16/21 16:00:00 EDT, Height, 69.4, kg, 03/16/21 16:00:00 EDT, Dry Weight Start Date: 06/15/21 Status: OrderedChantix Starter Pack 0.5 mg-1 mg oral tablet 1 tablet, By Mouth, 2 times a day, as directed on package labeling, # 53 tablet, 0 Refills, Acute 07/25/21 8:18:00 EDT, 06/28/21 8:18:00 EDT, Tablet, [facility], g., 1 tablet By Mouth 2 times a day,Instr:as directed on package labeling, 161... Start Date: 06/28/21 Stop Date: 07/25/21 Status: Orderedduloxetine 30 mg oral enteric coated capsule 1 capsule = 30 mg, By Mouth, 2 times a day, # 180 capsule, 1 Refills, Maintenance, 06/28/21 8:34:00 EDT, EC Capsule, [facility], 161.5, cm, 06/28/21 [...] 90 tablet, 0 Refills, 06/22/21 21:01:00 EDT, [facility], 161.5, cm,03/16/21 16:00:00 EDT, Height, 69.4, kg, 03/16/21... Start Date: 06/22/21 Status: Orderedhydrochlorothiazide-lisinopril 25 mg-20 mg oral tablet 1 tablet, By Mouth, Daily, for 90 days, # 90 tablet, 1 Refills, Physician Stop 12/25/21 8:31:00 EDT,06/28/21 8:31:00 EDT, [facility], 1 tablet By [...] Acute 12/25/21 8:31:00 EDT, 06/28/21 8:31:00 EDT, [facility], 161.5, cm, 06/28/21 [...] 07/01/2120:24:00 EDT, Aerosol, Route to Pharmacy Electronically, [id number], [facility], 161.5, cm, 06/28/21 [...] Infor mant Status Service AIN (anal Discharge 07/05/21 intraepithelial Diagnosis neoplasia) anal canal Crohn's disease Discharge 07/05/21 Diagnosis Vital Signs Most recent to oldest [Reference Range]: 1 Height 161.5 cm (07/05/21 4:07 PM) Weight 69.4 kg (07/05/21 4:07 PM) Pulse Rate [55-90 bpm] 85 bpm (07/05/21 4:07 PM) Body Mass Index [18.5-24.99] 26.61 *H* (07/05/21 4:07 PM) Blood Pressure [90-138/55-84 mm Hg] 11/69 mm Hg *L* (07/05/21 4:07 PM) Temperature [96.8-100.4 DegF] 96.8 DegF (07/05/21 4:07 PM) Blood pressure sites Arm, right (07/05/21 4:07 PM) Temperature Route Temporal (07/05/21 4:07 PM) Social History Social History Type Response Smoking Status 10 or more cigarettes (1/2 p ack or more)/day in last 30 days; Type: Cigarettes; Other: 0.5 PPD previously smoked 1 PPD until age 43; Number of years: 47; Total pack years: 38; Started at age: 13; entered on: 04/30/20 Sex
--- OUTSIDE RECORDS SUMMARY | 2022-09-01 10:14 | XMS_ITS | Continuity of Care Document ---
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) - 11/12/20 Osteopenia (Discharge Diagnosis) - 10/31/20 Cigarette smoker (Discharge Diagnosis) - 10/31/20 Hypertension (Discharge Diagnosis) - 10/31/20 Bronchitis, chronic (Discharge Diagnosis) - 10/31/20 Crohn's disease (Discharge Diagnosis) - 10/31/20 Vitamin D insufficiency (Discharge Diagnosis) - 10/31/20 Attending Physician: Toshia Quinteros NP Referring Physician: [...] 3 Refills, Maintenance, 10/28/19 10:27:00 EST, Tablet, [facility], 163.5, cm, 10/28/19 8:32:00 EST, Height, 83.7, kg, 09/09/19 8:32:00 EST, Dry Weight Start Date: 10/28/19 Status: Orderedatorvastatin 10 mg oral tablet 1 tablet = 10 mg, By Mouth, Daily, # 30 tablet, 5 Refills, Maintenance, 10/28/19 10:27:00 EST, [facility], 30 DAY NEEDED PER [...] tablet, 5 Refills, Maintenance, 10/22/20 10:20:00 EST, [facility], 164.7, cm, 04/30/20 7:20:00 EDT, Height, 83, kg, 03/10/20 13:09:00 EDT, Dry Weight Start Date: 10/22/20 Status: Orderedhydrochlorothiazide-lisinopril 12.5 mg-10 mg oral tablet 1 tablet, By Mouth, Daily, # 90 tablet, 3 Refills, Maintenance, 10/28/19 10:27:00 EST, Tablet, [facility], 1 tablet By Mouth Daily, 163.5, cm, 10/28/19 8:32:00 EST, Height, 83.7, kg, 09/09/19 8:32:00 EST, Dry Weight Start Date: 10/28/19 Status: Orderedhydrochlorothiazide-lisinopril 25 mg-20 mg oral tablet 1 tablet, By Mouth, Daily, for 30 days, # 30 tablet, 0 Refills, Acute 12/12/20 9:53:00 EST, :53:00 EST, [facility], DOSE INCREASED, 1 tablet By Mouth Daily,x30 days, 164.7, cm, 11/12/20 9:52:00 EST, Height, 83, kg, 03/10/20 13:09:... Start Date: 11/12/20 Stop Date: 12/12/20 Status: OrderedmetFORMIN 500 mg oral tablet 2 tablet = 1,000 mg, By Mouth, 2 times a day, REPLACES 500MG ER 2 BID DUE TO RECALL, # 360 tablet, 1Refills, Maintenance, 09/30/20 6:55:00 EST, [facility], 164.7, cm, 04/30/20 7:20:00 [...] :56:00 EST, Aerosol, Route to Pharmacy Electronically, [id number], [facility], 164.7, cm, 11/12/20 9:52:00 EST,... [...] JAGRUTI I (vulvar intraepithelial Active neoplasia I)(Confirmed) JAGRTUI III (vulvar intraepithelial Active neoplasia III)(Confirmed) Diagnosis Diagnosis Type Effective Dates Health Clinical Infor mant Status Service DM (diabetes Discharge 10/31/20 mellitus), type 2 Diagnosis Hypertension Discharge 10/31/20 Diagnosis Cigarette smoker Discharge 10/31/20 Diagnosis Osteopenia Discharge 10/31/20 Diagnosis Vitamin D Discharge 10/31/20 insufficiency Diagnosis Crohn's disease Discharge 10/31/20 Diagnosis Bronchitis, chronic Discharge 10/31/20 Diagnosis DM type 2 with Discharge 11/12/20 diabetic peripheral Diagnosis neuropathy Vital Signs Most recent to oldest [Reference Range]: 1 2 Height 164.7 cm 164.7 cm (11/12/20 9:52 AM) (11/12/20 9:02 AM) Weight 75.5 kg (11/12/20 9:52 AM) Pulse Rate [55-90 bpm] 93 bpm *H* (11/12/20 9:02 AM) Body Mass Index [18.5-24.99] 27.83 *H* (11/12/20 9:52 AM) Blood Pressure [90-138/55-84 mm Hg] 196/96 mm Hg *H* (11/12/20 9:02 AM) Temperature [96.8-100.4 DegF] 96.7 DegF *L* (11/12/20 9:02 AM) Blood pressure sites Arm, left (11/12/20 9:02 AM) Social History Social History Type Response Smoking Status 10 or more cigarettes (1/2 p ack or more)/day in last 30 days; Type: Cigarettes; Other: 0.5 PPD previously smoked 1 PPD until age 43; Number of years: 47; Total pack years: 38; Started at age: 13; entered on: 04/30/20 Sex
== END 2022-09-01 10:32 | disposition home or self-care (01) ==
PROVIDERS: Emergency Provider Emergency Medicine; PCP Nurse Practitioner Family
DX: S70.02XA Contusion of left hip, initial encounter (principal); W19.XXXA Unspecified fall, initial encounter; Y93.F9 Activity, other caregiving; Y92.129 Unspecified place in nursing home as the place of occurrence of the external cause; Y99.0 Civilian activity done for income or pay
CPT/HCPCS: 73502; 99282; 99283

== ENCOUNTER 2022-09-08 13:46 | Emergency (ER) | payer OTHER, SELFPAY ==
--- NOTE | ~2022-09-08 | XR_ITS ---
EXAMINATION: XR HIP, LEFT CLINICAL INFORMATION: Left hip pain status post injury. COMPARISON: None TECHNIQUE: Two views of the left hip. FINDINGS: Bones and soft tissues are normal. No fracture. Alignment is anatomic. Hip joint space is maintained. XR/XR hip LT w PEL1V IMPRESSION: Unremarkable left hip.
[2022-09-08 13:56] VITALS: BP 128/68; PULSE 66; RESP 20; TEMP 36.1; O2SAT 100; BMI 24.2
--- NOTE | 2022-09-08 13:58 | ED.LOWEXIN ---
HPI - Extremity Injury (Lower) General Chief Complaint: Extremity Problem <Sarahi Block NP - Last Filed: 09/08/22 13:59> Stated Complaint: Hip pain <Sarahi Block NP - Last Filed: 09/08/22 13:59> Time Seen by Provider: 09/08/22 16:13 <Sarahi Block NP - Last Filed: 09/08/22 13:59> Source: patient <TAM Chung - Last Filed: 09/08/22 17:35> Mode of arrival: ambulatory <TAM Chung - Last Filed: 09/08/22 17:35> Limitations: no limitations <TAM Chung - Last Filed: 09/08/22 17:35> History of Present Illness HPI Narrative: Patient is a 62 year old assigned female at with a history of left hip pain presenting to the emergency department today with an episode of left sided hip pain. Patient states that she has been having worsening left sided hip pain for the last 4 days. Patient denies any dizziness, lightheadedness, abdominal pain, nausea, vomiting, fever, chills, blurry vision, double vision, loss of vision, chest pain, difficulty breathing, shortness of breath, back pain, night sweats, pain with urination, increased urinary frequency, increased urinary urgency, blood in her urine or stool, syncope or a near syncopal episode, recent trauma or falls, bowel incontinence, bladder incontinence, bowel retention, bladder retention, or any other complaints at this time. <TAM Chung - Last Filed: 09/08/22 17:35> MD complaint: other (left sided hip pain) <TAM Chung - Last Filed: 09/08/22 17:35> Onset (ago): day(s) (4) <TAM Chung - Last Filed: 09/08/22 17:35> Severity: mild <TAM Chung Last Filed: 09/08/22 17:35> Severity scale (1-10): 3 <TAM Chung - Last Filed: 09/08/22 17:35> Exacerbating factors: nothing <TAM Chung - Last Filed: 09/08/22 17:35> Related Data Home Medications: Previous Rx's Medication Instructions Recorded cyclobenzaprine 10 mg tablet 10 mg PO TID PRN muscle spasm #14 04/13/22 tabs <Sarahi Block NP - Last Filed: 09/08/22 13:59> Allergies/Adverse Reactions: Allergies Allergy/AdvReac Type Severity Reaction Status Date / Time No Known Allergies Allergy Verified 04/13/22 18:43 [No Known Allergies*] Wellbutrin Allergy Unknown insomnia Uncoded 01/03/18 00:00 <Sarahi Block NP - Last Filed: 09/08/22 13:59> Review of Systems Constitutional: Constitutional: Reports no additional constitutional complaints, Denies chills, Denies fever(s) and Denies night sweats <TAM Chung - Last Filed: 09/08/22 17:35> Eyes: Eyes: Reports no additional eye complaints, Denies blurry vision, Denies change in vision, Denies diplopia, Denies eye discharge, Denies loss of vision and Denies eye pain <TAM Chung - Last Filed: 09/08/22 17:35> ENT: Denies dizziness <TAM Chung - Last Filed: 09/08/22 17:35> Cardiovascular: Cardiovascular: Reports no additional cardiovascular complaints, Denies chest pain, Denies lightheadedness, Denies Loss of Consciousness and Denies dyspnea <TAM Chung - Last Filed: 09/08/22 17:35> Respiratory: Respiratory: Reports no additional respiratory complaints and Denies dyspnea <TAM Chung - Last Filed: 09/08/22 17:35> Gastrointestinal: Gastrointestinal: Reports no additional gastrointestinal complaints, Denies abdominal pain, Denies melena, Denies hematochezia, Denies change in bowel habits and Denies change in stool character <TAM Chung - Last Filed: 09/08/22 17:35> Genitourinary: Genitourinary: Denies hematuria, Denies urinary frequency, Denies dysuria, Denies urinary incontinence, Denies urinary hesitancy and Denies urinary urgency <TAM Chung Last Filed: 09/08/22 17:35> Musculoskeletal: Musculoskeletal: Reports no additional musculoskeletal complaints, Denies numbness and Denies tingling <TAM Chung - Last Filed: 09/08/22 17:35> Comments: left sided hip pain <TAM Chung - Last Filed: 09/08/22 17:35> Neurologic: Denies dizziness, Denies loss of vision, Denies numbness and Denies tingling <TAM Chung - Last Filed: 09/08/22 17:35> Psychiatric: Psychiatric: Reports no additional psychiatric complaints <TAM Chung - Last Filed: 09/08/22 17:35> Endocrine: Endocrine: Reports no additional endocrine complaints <TAM Chung - Last Filed: 09/08/22 17:35> Hematologic/Lymphatic: Hematologic/Lymphatic: Reports no additional hematologic/lymphatic complaints <TAM Chung - Last Filed: 09/08/22 17:35> Allergic/Immunologic: Allergic/Immunologic: Reports no additional allergic/immunologic complaints <TAM Chung - Last Filed: 09/08/22 17:35> [facility] Past Medical History Attestation statement: The following information was validated with the patient. <TAM Chung - Last Filed: 09/08/22 17:35> Source: old records reviewed and nursing notes reviewed <TAM Chung - Last Filed: 09/08/22 17:35> Social History Social History: Social History Advance Directives: No Advance Directives Information Provided: No <Sarahi Block NP - Last Filed: 09/08/22 13:59> Physical Exam Vital Signs: Vital Signs: Last Vital Signs Temp 97.0 F 09/08/22 13:56 Pulse 66 09/08/22 13:56 Resp 20 09/08/22 13:56 BP 128/68 09/08/22 13:56 Pulse Ox 100 09/08/22 13:56 O2 Del Method 09/08/22 13:56 BMI result Body Mass Index 24.2 <Sarahi Block NP - Last Filed: 09/08/22 13:59> Vital Signs: Last Vital Signs Temp 97.0 F 09/08/22 13:56 Pulse 66 09/08/22 13:56 Resp 20 09/08/22 13:56 BP 128/68 09/08/22 13:56 Pulse Ox 100 09/08/22 13:56 O2 Del Method 09/08/22 13:56 BMI result Body Mass Index 24.2 <TAM Chung - Last Filed: 09/08/22 17:35> Const: General: cooperative, no acute distress, alert and awake <TAM Chung - Last Filed: 09/08/22 17:35> Nutritional Appearance: well nourished <TAM Chung - Last Filed: 09/08/22 17:35> Orientation/consciousness: patient oriented x3 <TAM Chung - Last Filed: 09/08/22 17:35> Limitations: no limitations <TAM Chung - Last Filed: 09/08/22 17:35> HEENT: Head: Yes normal to inspection and Yes atraumatic <TAM Chung - Last Filed: 09/08/22 17:35> Ears: hearing grossly normal bilaterally and external ears normal <TAM Chung - Last Filed: 09/08/22 17:35> General nose exam: Normal external nose present, no nasal discharge noted and no epistaxis <TAM Chung - Last Filed: 09/08/22 17:35> Face and sinus: Yes normal facial exam, No abrasion and No laceration <TAM Chung - Last Filed: 09/08/22 17:35> Mouth: Normal oral and palatal mucosa present, no drooling and no muffled voice <TAM Chung - Last Filed: 09/08/22 17:35> Eyes: General: appearance normal, both eyes and all related structures <TAM Chung - Last Filed: 09/08/22 17:35> Periorbital: periorbital findings normal <TAM Chung - Last Filed: 09/08/22 17:35> Eyelids: Yes eyelids normal <TAM Chung - Last Filed: 09/08/22 17:35> Conjunctivae: conjunctivae normal <TAM Chung - Last Filed: 09/08/22 17:35> Pupils: Equal, round and reactive pupils present <Yoana StilesTAM bowers - Last Filed: 09/08/22 17:35> EOM: EOMs intact bilaterally <Yoana StilesTAM bowers - Last Filed: 09/08/22 17:35> Neck: Neck: Yes normal visual inspection, Yes full ROM and Yes no lymphadenopathy <Yoana StilesTAM bowers - Last Filed: 09/08/22 17:35> Chest: Chest palpation & inspection: normal inspection of the chest <Yoanadelmi StilesTAM bowers - Last Filed: 09/08/22 17:35> Resp: Effort & Inspection: normal respiratory effort and able to speak in complete sentences <Yoana StilesTAM bowers - Last Filed: 09/08/22 17:35> Auscultation: clear to auscultation bilaterally <Yoana StilesTAM bowers - Last Filed: 09/08/22 17:35> Cardio: Rate: regular rate <Yoana StielsTAM bowers - Last Filed: 09/08/22 17:35> Rhythm: regular rhythm <Yoana StilesTAM bowers - Last Filed: 09/08/22 17:35> GI: Inspection: Yes normal to inspection <Yoana StilesTAM bowers - Last Filed: 09/08/22 17:35> : General: Yes no CVA tenderness <Yoana StilesATM bowers - Last Filed: 09/08/22 17:35> Back/Spine/Pelvis: Back: no CVA tenderness <Yoana StilesTAM bowers - Last Filed: 09/08/22 17:35> Cervical Spine: normal cervical lordosis <Yoanadelmi StilesTAM bowers - Last Filed: 09/08/22 17:35> Thoracic/Lumbar Spine: thoracic and lumbar spine normal to inspection <Yoana StilesTAM bowers - Last Filed: 09/08/22 17:35> Pelvis: no pain with anterior-posterior compression <Yoana StilesTAM bowers - Last Filed: 09/08/22 17:35> Neuro: General: patient oriented x3 and moves all extremities <Yoanadelmi StilesTAM bowers - Last Filed: 09/08/22 17:35> Cranial nerves: Yes Equal, round and reactive pupils present <Yoanadelmi StilesTAM bowers - Last Filed: 09/08/22 17:35> Cognition (Neuro): normal cognition <Yoana StilesTAM bowers - Last Filed: 09/08/22 17:35> Motor exam (neuro): 5/5 motor strength present throughout <Yoana JohnsonTAM - Last Filed: 09/08/22 17:35> Sensory Exam: Normal double simultaneous stimulation for sensation <Yoana JohnsonTAM - Last Filed: 09/08/22 17:35> Coordination: [id number] test normal <Yoana StilesTAM bowers - Last Filed: 09/08/22 17:35> Extrem: General: Yes normal to inspection, Yes full ROM and Yes capillary refill normal <Yoana JohnsonTAM - Last Filed: 09/08/22 17:35> Psych: Appearance: grossly normal <Yoana JohnsonTAM - Last Filed: 09/08/22 17:35> Mental Status: mental status grossly normal <Yoana JohnsonTAM - Last Filed: 09/08/22 17:35> Affect: normal affect <Yoana StilesTAM bowers - Last Filed: 09/08/22 17:35> Attitude: cooperative <Yoana StilesTAM bowers - Last Filed: 09/08/22 17:35> Thought process: Normal thought process present <Yoana StilesTAM bowers - Last Filed: 09/08/22 17:35> Thought content: Normal thought content present <Yoana StilesTAM bowers - Last Filed: 09/08/22 17:35> Insight: Good insight present (Psych) <Yoana StilesTAM bowers - Last Filed: 09/08/22 17:35> Course Course Course Narrative: This is a rapid medical exam. Deferred HPI, ROS, PE to primary provider. Left hip pain with remote injury. Will check x-rays. Vital signs stable <Sarahi Block NP - Last Filed: 09/08/22 13:59> Medications Administered Discontinued Medications Generic Name Dose Route Start Last Admin Trade Name Cali PRN Reason Stop Dose Admin Ketorolac Tromethamine 15 mg 09/08/22 16:40 09/08/22 17:08 Ketorolac Tromethamine 15 Mg/Ml Vial IM 09/08/22 16:41 15 mg ONCE ONE Administration <Sarahi Block NP - Last Filed: 09/08/22 13:59> Medications Administered Discontinued Medications Generic Name Dose Route Start Last Admin Trade Name Cali PRN Reason Stop Dose Admin Ketorolac Tromethamine 15 mg 09/08/22 16:40 09/08/22 17:08 Ketorolac Tromethamine 15 Mg/Ml Vial IM 09/08/22 16:41 15 mg ONCE ONE Administration <TAM Chung - Last Filed: 09/08/22 17:35> Medical Decision Making Medical Decision Making MDM Narrative: Patient is a 62 year old assigned female at with a history of left sided hip pain presenting to the emergency department today with left sided hip pain. Patient's physical exam was unremarkable. Patient's left hip x-ray showed no acute process. I explained my physical exam findings as well as all test results to the patient. I answered all questions asked by the patient. Patient received IM Toradol which she stated helped her symptoms significantly. I stressed the importance of the patient taking her medication as prescribed. I stressed the importance of the patient following up with her primary care provider and an orthopedic provider. I stressed the importance of the patient returning to the emergency department immediately if her symptoms were to worsen or if she were to develop any dizziness, shortness of breath, difficulty breathing, chest pain, blurry vision, loss of vision, nausea, vomiting, abdominal pain, fever, chills, back pain, or any other complaints. Patient verbalized agreement and understanding with this treatment plan and discharge. <TAM Chung - Last Filed: 09/08/22 17:35> Differential Diagnoses: Differential diagnosis Differential Diagnosis: hip pain, hip arthritis <TAM Chnug - Last Filed: 09/08/22 17:35> Discussion of test interpretation with radiology: Discussion of test interpretation with radiology This result was not discussed with radiology however, the radiologist's impression is listed here, per their written note. EXAMINATION: XR HIP, LEFT CLINICAL INFORMATION: Left hip pain status post injury. COMPARISON: None TECHNIQUE: Two views of the left hip. FINDINGS: Bones and soft tissues are normal. No fracture. Alignment is anatomic. Hip joint space is maintained. XR/XR hip LT w PEL1V IMPRESSION: Unremarkable left hip. Dictated By: Soto Rizvi MD Signed By: Electronically signed by Soto Rizvi MD 09/08/22 [id number] <TAM Chung - Last Filed: 09/08/22 17:35> Discharge Plan Discharge Clinical Impression: Chronic hip pain <Sarahi Block NP - Last Filed: 09/08/22 13:59> Patient Disposition: Home, Self-Care <Sarahi Block NP - Last Filed: 09/08/22 13:59> Instructions: Hip Pain (ED) <Sarahi Block NP - Last Filed: 09/08/22 13:59> Additional Instructions: Follow up with your primary care provider and an orthopedic provider. Return to the emergency department immediately if your symptoms worsen or if you develop any dizziness, shortness of breath, difficulty breathing, chest pain, blurry vision, loss of vision, nausea, vomiting, abdominal pain, fever, chills, back pain, or any other complaints. <Sarahi Block NP - Last Filed: 09/08/22 13:59> Prescriptions: No Action cyclobenzaprine 10 mg tablet 10 mg PO TID PRN (Reason: muscle spasm) Qty: 14 0RF <Sarahi Block NP - Last Filed: 09/08/22 13:59> Referrals: [facility] [Provider Group] (Call to establish and follow up with an orthopedic provider. ) Toshia Quinteros NP [Primary Care Provider] - <Sarahi Block NP - Last Filed: 09/08/22 13:59> Interventions: ED Discharge Assessment Last Done: 09/08/22 17:13 <Sarahi Block NP - Last Filed: 09/08/22 13:59> Discharge Date/Time: 09/08/22 17:15 <Sarahi Block NP - Last Filed: 09/08/22 13:59> Print Language: Lao <Sarahi Block NP - Last Filed: 09/08/22 13:59>
[2022-09-08] MEDS: Ketorolac Tromethamine 15 MG/ML VIAL IM (17:08)
== END 2022-09-08 17:15 | disposition home or self-care (01) ==
PROVIDERS: Emergency Provider Emergency Medicine; PCP Nurse Practitioner Family
DX: M25.552 Pain in left hip (principal); Z79.899 Other long term (current) drug therapy
CPT/HCPCS: 73502; 96372; 99283; 99284; J1885